=== PATIENT | female | born 1940 | race Caucasian/White ===

== ENCOUNTER 2020-04-14 08:39 | Outpatient (CLI) | payer MEDICARE, SELFPAY ==
[2020-04-14 08:53] LABS: Basophils Absolute Auto 0.1 K/mm3 (0.0-0.1); Basophils Percent Auto 1.2 % (0.2-1.2); Eosinophils Absolute Auto 0.3 K/mm3 (0-0.3); Eosinophils Percent Auto 5.4 % (0-4.4); Hematocrit 41.8 % (37.0-47.0); Hemoglobin 13.7 g/dL (12.0-15.0); Immature Granulocyte Absolute 0.01 K/mm3 (0.00-0.031); Immature Granulocyte Percent A 0.2 % (0-0.5); Lymphocytes Percent Auto 23.5 % (18.3-44.2); Mean Corpuscular HGB Conc 32.8 g/dl (32-36); Mean Corpuscular Hemoglobin 32.1 pg (26-34); Mean Corpuscular Volume 97.9 fl (80-100); Mean Platelet Volume 10.1 fl (7.4-10.4); Monocytes Absolute Auto 0.6 K/mm3 (0.1-0.6); Monocytes Percent Auto 10.8 % (2.6-8.5); Neutrophils Absolute Auto 3.5 K/mm3 (1.3-6.7); Neutrophils Percent Auto 58.9 % (45.5-73.1); Platelet Count Result 236 k/mm3 (150-375); Red Blood Count 4.27 M/mm3 (4.2-5.4); Red Cell Distribution Width 13.1 % (11.5-14.5)
[2020-04-14 12:44] LABS: Alanine Aminotransferase 19 U/L (4-35); Albumin Level 4.3 g/dL (3.5-5.1); Alkaline Phosphatase 122 U/L (38-126); Anion Gap 7 mmol/L (8-16); Aspartate Amino Transferase 31 U/L (14-36); Bilirubin,Total 0.7 mg/dL (0.2-1.3); Blood Urea Nitrogen 18 mg/dL (7-17); Calcium 9.4 mg/dL (8.4-10.2); Carbon Dioxide 29 mmol/L (22-30); Chloride 101 mmol/L (98-107); Estimated Glomerular Filt Rate > 60; Glucose 100 mg/dL (65-105); Potassium 4.4 mmol/L (3.4-5.0); Sodium 137 mmol/L (137-145)
[2020-04-14 12:59] LABS: Vitamin D 25 Hydroxy 52.2 ng/mL
== END 2020-04-14 08:40 | disposition home or self-care (01) ==
PROVIDERS: PCP Internal Medicine; Visit Provider Internal Medicine
DX: E55.9 Vitamin D deficiency, unspecified (principal); F31.9 Bipolar disorder, unspecified; M81.0 Age-related osteoporosis without current pathological fracture
CPT/HCPCS: 36415; 80053; 82306; 84443; 85025

== ENCOUNTER 2020-05-02 08:27 | Outpatient (CLI) | payer MEDICARE, SELFPAY ==
[2020-05-02 12:15] LABS: Cholesterol 240 mg/dL (0-200); HDL Direct 79 mg/dL; Triglycerides 85 mg/dL (<150)
[2020-05-02 12:16] LABS: LDL Cholesterol Direct 135 mg/dL
== END 2020-05-02 08:28 | disposition home or self-care (01) ==
PROVIDERS: PCP Internal Medicine; Visit Provider Internal Medicine
DX: F31.9 Bipolar disorder, unspecified (principal); M81.0 Age-related osteoporosis without current pathological fracture; E55.9 Vitamin D deficiency, unspecified; N95.2 Postmenopausal atrophic vaginitis; Z79.899 Other long term (current) drug therapy
CPT/HCPCS: 36415; 80061

== ENCOUNTER 2020-12-26 14:03 | Outpatient (CLI) | payer MEDICARE, SELFPAY ==
--- NOTE | ~2020-12-26 | XR_ITS ---
XR shoulder LT min 2V DATE: 12/26/2020 14:25 INDICATION: Mass on top of left shoulder for several months. No injury. TECHNIQUE: 4 views COMPARISON: None FINDINGS: There is osteoarthritic joint space narrowing and spurring at the left glenohumeral joint. There is mild degenerative spurring at the left acromioclavicular joint. No fracture or dislocation, periosteal reaction or bone destruction. Prominent degenerative disc disease and apophyseal joint and uncovertebral joint spurring of the incl uded mid and lower cervical spine. Degenerative spurring of the thoracic spine. IMPRESSION: Extensive degenerative changes of the cervical and thoracic spine Osteoarthritis of the glenohumeral joint Degenerative spurring of the acromioclavicular joint Reviewed, dictated and finalized at location B.
== END 2020-12-26 14:04 | disposition home or self-care (01) ==
LOC: ANHIMG 14:08
PROVIDERS: PCP Internal Medicine; Visit Provider Internal Medicine
DX: M50.30 Other cervical disc degeneration, unspecified cervical region (principal); M51.34 Other intervertebral disc degeneration, thoracic region; M19.012 Primary osteoarthritis, left shoulder
CPT/HCPCS: 73030

== ENCOUNTER 2021-04-13 07:42 | Outpatient (CLI) | payer MEDICARE, SELFPAY ==
[2021-04-13 08:31] LABS: Basophils Absolute Auto 0.1 K/mm3 (0.0-0.1); Basophils Percent Auto 1.2 % (0.2-1.2); Eosinophils Absolute Auto 0.3 K/mm3 (0-0.3); Eosinophils Percent Auto 5.7 % (0-4.4); Hematocrit 40.2 % (37.0-47.0); Hemoglobin 13.2 g/dL (12.0-15.0); Immature Granulocyte Absolute 0.01 K/mm3 (0.00-0.031); Immature Granulocyte Percent A 0.2 % (0-0.5); Lymphocytes Absolute Auto 1.53 K/mm3 (0.9-3.2); Lymphocytes Percent Auto 26.5 % (18.3-44.2); Mean Corpuscular HGB Conc 32.8 g/dl (32-36); Mean Corpuscular Hemoglobin 31.9 pg (26-34); Mean Corpuscular Volume 97.1 fl (80-100); Mean Platelet Volume 10.7 fl (7.4-10.4); Monocytes Absolute Auto 0.6 K/mm3 (0.1-0.6); Monocytes Percent Auto 10.1 % (2.6-8.5); Neutrophils Absolute Auto 3.3 K/mm3 (1.3-6.7); Neutrophils Percent Auto 56.3 % (45.5-73.1); Platelet Count Result 241 k/mm3 (150-375); Red Blood Count 4.14 M/mm3 (4.2-5.4); Red Cell Distribution Width 12.8 % (11.5-14.5); White Blood Count 5.8 K/mm3 (4.5-10.0)
[2021-04-13 08:45] LABS: Alanine Aminotransferase 18 U/L (4-35); Albumin Level 4.1 g/dL (3.5-5.1); Alkaline Phosphatase 114 U/L (38-126); Anion Gap 5 mmol/L (8-16); Aspartate Amino Transferase 29 U/L (14-36); Bilirubin,Total 0.8 mg/dL (0.2-1.3); Blood Urea Nitrogen 18 mg/dL (7-17); Calcium 9.1 mg/dL (8.4-10.2); Carbon Dioxide 31 mmol/L (22-30); Chloride 102 mmol/L (98-107); Cholesterol 221 mg/dL (0-200); Estimated Glomerular Filt Rate > 60; Glucose 94 mg/dL (65-110); HDL Direct 67 mg/dL; Potassium 4.2 mmol/L (3.4-5.0); Sodium 138 mmol/L (137-145); Triglycerides 54 mg/dL (<150)
[2021-04-13 08:46] LABS: Add Urine Microscopic? YES; Appearance Urine Clear (Clear); Bacteria Urine Trace /hpf; Bilirubin Urine Negative (Negative); Blood Urine Negative (Negative); Color Urine Yellow (Yellow); Glucose Urine UA Negative (Negative); Ketones Urine Negative (Negative); Leukocyte Esterase Ur Trace LEU/UL (NEGATIVE); Mucus Urine Rare /lpf; Nitrate Urine Negative (Negative); Protein Urine Negative (Negative); Specific Grav Ur 1.023 (1.001-1.035); Squamous Epithelial Cell Urine Rare /hpf (Few); Urobilinogen Urine Negative mg/dL (<2.0); WBC Urine 0-3 /hpf (0-3)
[2021-04-13 08:56] LABS: LDL Cholesterol Direct 114 mg/dL
[2021-04-13 09:08] LABS: Vitamin D 25 Hydroxy 54.1 ng/mL
== END 2021-04-13 07:43 | disposition home or self-care (01) ==
PROVIDERS: PCP Internal Medicine; Visit Provider Internal Medicine
DX: E55.9 Vitamin D deficiency, unspecified (principal); F31.9 Bipolar disorder, unspecified; N39.41 Urge incontinence; E78.2 Mixed hyperlipidemia
CPT/HCPCS: 36415; 80053; 80061; 81001; 82306; 84443; 85025

== ENCOUNTER 2021-06-06 01:32 | Day surgery (SDC) | payer MEDICARE, SELFPAY ==
[2021-05-25 13:20] VITALS: BMI 25.4
[2021-06-06 09:01] VITALS: BP 149/91; PULSE 86; RESP 17; TEMP 36.2; O2SAT 96; BMI 25.7
[2021-06-06] MEDS: LACTATED RINGERS 1,000 ML 150 ML IV CONT (09:13)
--- NOTE | 2021-06-06 09:18 | P.PNAN_ITS ---
Anes - Initial Pre Proc Eval Procedure: Operation Date: 06/06/21 10:15 Proposed Procedures p Screening Colonoscopy - Cody Pandey MD Date/Time: 06/06/21 09:18 Surgeon: Cody Pandey MD Pre Op Diagnosis: family hx of colon ca Patient Data Age: 81 Gender: F Height: 1.55 m Weight: 61.7 kg Last Vital Signs Temp 36.2 C L 06/06/21 09:01 Pulse 86 06/06/21 09:01 Resp 17 06/06/21 09:01 BP 149/91 H 06/06/21 09:01 Pulse Ox 96 06/06/21 09:01 Allergies Allergy/AdvReac Type Severity Reaction Status Date / Time codeine AdvReac Fainting Verified 06/06/21 09:01 Home Medications Medication Instructions Recorded Confirmed Type cholecalciferol (vitamin D3) 25 25 mcg PO DAILY 11/21/20 06/06/21 History mcg (1,000 unit) capsule red yeast rice 600 mg tablet 600 mg PO BID 11/21/20 06/06/21 History fluoxetine 10 mg capsule 10 mg PO DAILY #90 cap 12/08/20 06/06/21 Rx ascorbic acid (vitamin C) 1,000 mg 1 g PO DAILY 04/18/21 06/06/21 History tablet calcium carbonate 600 mg calcium 600 mg PO DAILY 04/18/21 06/06/21 History (1,500 mg) tablet coenzyme Q10 200 mg capsule 200 mg PO BID cap 04/18/21 06/06/21 History vitamin E (dl, acetate) 180 mg 180 mg PO DAILY 04/18/21 06/06/21 History (400 unit) capsule Patient hx anesthesia problems: none Family hx anesthesia problems: none Results Review: All pre-operative results and documents have been reviewed as part of the pre-operative evaluation. [facility] Past Medical History Medical History Bipolar 1 disorder History of chicken pox Surgical History Surgical History H/O hand surgery History of ankle surgery History of appendectomy No history of previous surgery Family History Family History Sibling Asthma Mother Depression Heart disease Grandparent Alcoholism Social History Social History Smoking status: Never smoker Second hand tobacco smoke exposure: No Alcohol intake: current Drinks per week: 7 Substance use: current Substance use type: marijuana Other substance usage details: Once every other day Living arrangements: alone Spiritual care concerns: No Anes - Eval Final PreProcedure Day of Procedure 06/06/21 09:18 Patient weight: normal Heart: regular rate and rhythm Lungs: clear to auscultation Airway: Mallampati scale class II Neurological: alert and oriented Last oral intake: >/= 8 hours ASA classification: II Emergent: no Anesthetic plan: proceed Anesthesia type and monitoring: general GIVS and standard monitoring Results Review: All pre-operative results and documents have been reviewed as part of the pre-operative evaluation. Informed Consent: The patient's anesthetic plan and its attendant risks and benefits were discussed with the patient/family/POA. Questions were solicited and answers provided to the satisfaction of the patient/family/POA.
--- NOTE | 2021-06-06 10:13 | PM.HPGS ---
History of Present Illness History of Present Illness Consent: Risks, benefits, and alternatives have been discussed and questions answered. Patient agrees to proceed with procedure. Chief complaint: family hx of colon ca Narrative: Rubi Barnett is a 81 year old female with last colonoscopy about 10 years ago. Review of Systems Constitutional: Constitutional: Denies headache(s) and Denies weakness Eyes: Eyes: Denies blurry vision ENT: Reports Normal hearing present, Denies headache(s) and Denies neck pain Cardiovascular: Cardiovascular: Denies chest pain and Denies dyspnea Respiratory: Respiratory: Denies dyspnea Gastrointestinal: Gastrointestinal: Reports no additional gastrointestinal complaints Genitourinary: Genitourinary: Denies dysuria Musculoskeletal: Musculoskeletal: Denies neck pain Integumentary/Breasts: Skin/Breast: Denies dry skin Neurologic: Reports Normal hearing present, Denies headache(s) and Denies weakness Psychiatric: Psychiatric: Denies anxiety Endocrine: Endocrine: Denies change in body appearance Hematologic/Lymphatic: Hematologic/Lymphatic: Denies easy bleeding Allergic/Immunologic: Allergic/Immunologic: Denies urticaria PMFSH Past Medical History Medical History (Updated 06/06/21 @ 10:13 by Cody Pandey MD) Bipolar 1 disorder Colon cancer screening History of chicken pox Surgical History Surgical History H/O hand surgery History of ankle surgery History of appendectomy No history of previous surgery Family History Family History Sibling Asthma Mother Depression Heart disease Grandparent Alcoholism Social History Social History Smoking status: Never smoker Second hand tobacco smoke exposure: No Alcohol intake: current Drinks per week: 7 Substance use: current Substance use type: marijuana Other substance usage details: Once every other day Living arrangements: alone Spiritual care concerns: No Meds Home Medications and Allergies Home Medications Medication Instructions Recorded Confirmed Type cholecalciferol (vitamin D3) 25 25 mcg PO DAILY 11/21/20 06/06/21 History mcg (1,000 unit) capsule red yeast rice 600 mg tablet 600 mg PO BID 11/21/20 06/06/21 History fluoxetine 10 mg capsule 10 mg PO DAILY #90 cap 12/08/20 06/06/21 Rx ascorbic acid (vitamin C) 1,000 mg 1 g PO DAILY 04/18/21 06/06/21 History tablet calcium carbonate 600 mg calcium 600 mg PO DAILY 04/18/21 06/06/21 History (1,500 mg) tablet coenzyme Q10 200 mg capsule 200 mg PO BID cap 04/18/21 06/06/21 History vitamin E (dl, acetate) 180 mg 180 mg PO DAILY 04/18/21 06/06/21 History (400 unit) capsule Allergies Allergy/AdvReac Type Severity Reaction Status Date / Time codeine AdvReac Fainting Verified 06/06/21 09:01 Vital Signs Vital Signs - 24 hr 06/06/21 09:01 Temperature 97.1 F L Pulse Rate 86 Respiratory Rate 17 Blood Pressure 149/91 H Pulse Oximetry 96 Exam Const: General: comfortable and no acute distress HENMT: General nose exam: Normal nares present Eyes: General: appearance normal, both eyes and all related structures Neck: Neck: no JVD Resp: Auscultation: clear to auscultation bilaterally Cardio: Rate: regular rate Rhythm: regular rhythm GI: Inspection: non-distended GI Palp: Yes Soft to palpation Skin: General skin exam: normal color Neuro: General: gait normal Speech: normal speech Extrem: General: normal to inspection Psych: Mental Status: mental status grossly normal Assessment and Plan Assessment and plan (1) Colon cancer screening: Code(s): Z12.11 - Encounter for screening for malignant neoplasm of colon Status: Acute Assessment and Plan: colonoscopy
[2021-06-06 10:37] VITALS: BP 90/54; PULSE 62; RESP 24; O2SAT 98
[2021-06-06 10:47] VITALS: BP 130/65; PULSE 74; RESP 18; O2SAT 98
[2021-06-06 10:57] VITALS: BP 151/88; PULSE 70; RESP 19; O2SAT 100
== END 2021-06-06 11:16 | disposition home or self-care (01) ==
PROVIDERS: PCP Internal Medicine; Visit Provider Internal Medicine Gastroenterology
PROC: 0DJD8ZZ Inspection of Lower Intestinal Tract, Via Natural or Artificial Opening Endoscopic (ICD-10-PCS; CPT 45378; principal; 2021-06-06 10:15)
DX: Z12.11 Encounter for screening for malignant neoplasm of colon (principal); K64.8 Other hemorrhoids; F31.9 Bipolar disorder, unspecified; F12.90 Cannabis use, unspecified, uncomplicated
CPT/HCPCS: G0121; J2704; J7120

== ENCOUNTER 2022-07-17 13:39 | Outpatient (CLI) | payer MEDICARE, SELFPAY ==
--- NOTE | ~2022-07-17 | DEXA_ITS ---
Bone Density Report Name: PRATIMA KNUTSON Age: 82 Sex: Female Ethnicity: White Date of : 1940 Indication: osteopenia; height loss; prior fracture; postmenopausal Referring Provider: ESTEFANIA MARTINEZ Study: Bone densitometry was performed. Exam Date: July 17, 2022 Accession number: [id number] Bone Density: Region BMD T-score Z-score Classification AP Spine(L1, L2, L3) 0.792 -2.1 0.6 Osteopenia Femoral Neck (Left) 0.857 0.1 2.4 Normal Total Hip (Left) 0.885 -0.5 1.6 Normal Femoral Neck (Right) 0.734 -1.0 1.3 Normal Total Hip (Right) 0.838 -0.9 1.2 Normal Total Hip Mean 0.862 -0.7 1.4 Normal World Health Organization criteria for BMD impression classify patients as: Normal (T-score at or above -1.0), Osteopenia (T-score between -1.0 and -2.5), or Osteoporosis (T-score at or below -2.5). 10-year Fracture Risk(1): Major Osteoporotic Fracture 16% Hip Fracture 3.0% Reported Risk Factors: [place] (), Neck BMD=0.734, BMI=23.2, previous fracture (1) FRAX(R) Version 3.08. Fracture probability calculated for an untreated patient. Fracture probability may be lower if the patient has received treatment. Previous Exams: Region Exam Age BMD T-score BMD Change BMD Change Date g/cm2 vs Baseline vs Previous AP Spine (L1-L3) 07/17/2022 82 0.792 -2.1 0.001 (0.2%) 0.001 (0.2%) 05/09/2019 79 0.790 -2.1 Total Hip(Left) 07/17/2022 82 0.885 -0.5 -0.043 (-4.7%) -0.043 (-4.7%) 05/09/2019 79 0.929 -0.1 Total Hip(Right) 07/17/2022 82 0.838 -0.9 -0.015 (-1.7%) -0.015 (-1.7%) 05/09/2019 79 0.852 -0.7 *Denotes significance at 95% confidence level, LSC for AP Spine = 0.022 g/cm2, LSC for Total Hip = 0.027 g/cm2 Clinical Information Provided by Patient: Has had a low trauma fracture Has used the following medications: Vitamin D, Calcium Patient maximum height was 64 Menopause Age: 54 Onset of menses at age 15 Number of children 1 Impression: The patient has low bone mass, based on the Total Spine T-score. The patient has an estimated ten-year risk of hip fracture of 3% and an estimated ten-year risk of major fracture of 16%, based on the WHO FRAX algorithm. The patient has risk factors, including: previous fracture. The BMD for the Total Hip(Left) decreased, changing by -4.7% since the last DXA exam. Discussion: BONE DENSITY IS LOW AT ONE OR MORE SKELETAL SITES. THE PATIENT'S BMD AND CLINICAL RISK FACTO
== END 2022-07-17 13:40 | disposition home or self-care (01) ==
PROVIDERS: PCP Internal Medicine; Visit Provider Internal Medicine
DX: M81.0 Age-related osteoporosis without current pathological fracture (principal); M85.9 Disorder of bone density and structure, unspecified
CPT/HCPCS: 77080

== ENCOUNTER 2022-11-16 08:11 | Outpatient (CLI) | payer MEDICARE, SELFPAY ==
[2022-11-16 09:18] LABS: Basophils Absolute Auto 0.1 K/mm3 (0.0-0.1); Basophils Percent Auto 1.4 % (0.2-1.2); Eosinophils Absolute Auto 0.3 K/mm3 (0-0.3); Eosinophils Percent Auto 5.3 % (0-4.4); Hemoglobin 12.8 g/dL (12.0-15.0); Immature Granulocyte Absolute 0.01 K/mm3 (0.00-0.031); Immature Granulocyte Percent A 0.2 % (0-0.5); Lymphocytes Absolute Auto 1.58 K/mm3 (0.9-3.2); Lymphocytes Percent Auto 24.5 % (18.3-44.2); Mean Corpuscular HGB Conc 32.8 g/dl (32-36); Mean Corpuscular Hemoglobin 32.2 pg (26-34); Monocytes Absolute Auto 0.6 K/mm3 (0.1-0.6); Monocytes Percent Auto 9.8 % (2.6-8.5); Neutrophils Absolute Auto 3.8 K/mm3 (1.3-6.7); Neutrophils Percent Auto 58.8 % (45.5-73.1); Platelet Count Result 235 k/mm3 (150-375); Red Blood Count 3.98 M/mm3 (4.2-5.4); Red Cell Distribution Width 12.4 % (11.5-14.5); White Blood Count 6.5 K/mm3 (4.5-10.0)
[2022-11-16 09:33] LABS: Alanine Aminotransferase 24 U/L (6-35); Albumin Level 4.3 g/dL (3.5-5.1); Alkaline Phosphatase 121 U/L (38-126); Anion Gap 5 mmol/L (8-16); Aspartate Amino Transferase 33 U/L (14-36); Bilirubin,Total 0.7 mg/dL (0.2-1.3); Blood Urea Nitrogen 14 mg/dL (7-17); Carbon Dioxide 31 mmol/L (22-30); Chloride 102 mmol/L (98-107); Estimated Glomerular Filt Rate > 60; Glucose 94 mg/dL (65-110); Potassium 4.5 mmol/L (3.4-5.0); Sodium 138 mmol/L (137-145)
[2022-11-16 09:50] LABS: Vitamin D 25 Hydroxy 44.9 ng/mL
== END 2022-11-16 08:12 | disposition home or self-care (01) ==
PROVIDERS: PCP Family Medicine; Visit Provider Nurse Practitioner Family
DX: F31.9 Bipolar disorder, unspecified (principal); E55.9 Vitamin D deficiency, unspecified
CPT/HCPCS: 36415; 80053; 82306; 85025

== ENCOUNTER 2023-05-02 09:05 | Outpatient (CLI) | payer MEDICARE, SELFPAY ==
[2023-05-02 09:21] LABS: Hematocrit 42.2 % (37.0-47.0); Hemoglobin 13.5 g/dL (12.0-15.0); Mean Corpuscular Hemoglobin 32.1 pg (26-34); Mean Corpuscular Volume 100.5 fl (80-100); Mean Platelet Volume 10.1 fl (7.4-10.4); Platelet Count Result 255 k/mm3 (150-375); Red Cell Distribution Width 12.9 % (11.5-14.5); White Blood Count 5.7 K/mm3 (4.5-10.0)
[2023-05-02 09:35] LABS: Alanine Aminotransferase 23 U/L (6-35); Albumin Level 4.5 g/dL (3.5-5.1); Alkaline Phosphatase 113 U/L (38-126); Anion Gap 10 mmol/L (8-16); Aspartate Amino Transferase 33 U/L (14-36); Bilirubin,Total 0.7 mg/dL (0.2-1.3); Blood Urea Nitrogen 16 mg/dL (7-17); Calcium 9.7 mg/dL (8.4-10.2); Carbon Dioxide 27 mmol/L (22-30); Chloride 105 mmol/L (98-107); Cholesterol 259 mg/dL (0-200); Estimated Glomerular Filt Rate > 60; Glucose 102 mg/dL (65-110); HDL Direct 88 mg/dL; Potassium 4.2 mmol/L (3.4-5.0); Sodium 142 mmol/L (137-145); Triglycerides 74 mg/dL (<150)
[2023-05-02 09:47] LABS: LDL Cholesterol Direct 116 mg/dL
[2023-05-02 10:04] LABS: Vitamin D 25 Hydroxy 49.7 ng/mL
== END 2023-05-02 09:06 | disposition home or self-care (01) ==
PROVIDERS: PCP Family Medicine; Visit Provider Family Medicine
DX: E78.2 Mixed hyperlipidemia (principal); F31.9 Bipolar disorder, unspecified; E55.9 Vitamin D deficiency, unspecified
CPT/HCPCS: 36415; 80053; 80061; 82306; 85027

== ENCOUNTER 2023-07-16 17:31 | Emergency (ER) | payer MEDICARE, SELFPAY ==
--- NOTE | ~2023-07-16 | CT_ITS ---
EXAMINATION: CT cervical spine wo con DATE: 07/16/2023 19:05 INDICATION: head injury TECHNIQUE: Computed tomography (CT) of the cervical spine was performed without intravenous contrast. Automated exposure control and iterative reconstruction technique were employed. The dose-length pro duct was 175.06 mGy-cm. COMPARISON: None. FINDINGS: Vertebral Body Alignment: Intact. Mild listheses at C3-4, C4-5, and C5-6 Craniocervical and atlantoaxial alignment: Moderate degenerative change. Alignment intact. Osseous structures/fracture: No evidence of a lytic or blastic process in the visualized spine. No e vidence of acute fracture. Cervical soft tissues: The paraspinal soft tissues planes are maintained. Biapical pleural scarring a nd septal thickening. Degenerative changes: Degenerative changes, without severe neural foraminal or central canal narrowin g. IMPRESSION: No acute fracture or traumatic malalignment in the cervical spine. Multilevel grade 1 anterolistheses, presumably on a degenerative basis. Reviewed, dictated and finalized at location K. 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
--- NOTE | ~2023-07-16 | CT_ITS ---
EXAMINATION: CT brain wo con DATE: 07/16/2023 19:05 INDICATION: head injury . TECHNIQUE: Computed tomography (CT) of the head was performed without intravenous contrast. The mA wa s adjusted according to patient size. Iterative reconstruction technique was employed. The dose-lengt h product was 605.33 mGy-cm. COMPARISON: None. FINDINGS: No acute intracranial hemorrhage or extra-axial fluid collection. No hydrocephalus, mass, or herniation. No acute ischemic infarct. Unremarkable dural venous sinus attenuation. No acute osseous abnormality. Minimal left mastoid fluid, the remaining aerated spaces are clear. Moderate atrophy and chronic white matter change. Atherosclerotic intracranial calcification. Right l ens replacement. IMPRESSION: No acute intracranial process. Reviewed, dictated and finalized at location K. AL MANAGER
--- NOTE | ~2023-07-16 | XR_ITS ---
EXAMINATION: XR chest 2V Exam Date/Time: 07/16/2023 19:00 FAILURE ANALYSIS TECHNICIAN HISTORY: syncope Comparison: None. RESULT: Lines, tubes, and devices: None. Lungs and pleura: Senescent/emphysematous change, otherwise clear. Cardiomediastinal silhouette: Stable. Other: No acute osseous or upper abdominal finding. IMPRESSION: No acute cardiopulmonary process. Reviewed, dictated and finalized at location K. URE ANALYSIS TECHNICIAN
[2023-07-16 17:38] VITALS: BP 134/80; PULSE 73; RESP 15; TEMP 36.2; O2SAT 96
--- NOTE | 2023-07-16 17:38 | ECG_ITS ---
Measurements Intervals [place] Rate: 72 P: 54 AK: 166 QRS: 11 QRSD: 86 T: 29 QT: 373 QTc: 410 Interpretive Statements SINUS RHYTHM POSSIBLE LEFT ATRIAL ENLARGEMENT BASELINE ARTIFACT- I, III, AVR, AVL BORDERLINE ECG NO PREVIOUS ECG AVAILABLE FOR COMPARISON Electronically Signed On 07-16-2023 20:16:03 AGENCY RECRUITER by Santiago Clark D.O.
--- NOTE | 2023-07-16 17:56 | ED.SYNCOPE ---
HPI - Syncope General Chief Complaint: Syncope Stated Complaint: SYNCOPY Time Seen by Provider: 07/16/23 17:54 Source: patient Mode of arrival: EMS Limitations: no limitations History of Present Illness HPI narrative: This is a 83 year old female that presents to the ER for syncopal episode today. Reports she was at the grocery store and suddenly passed out. Reports feeling not right prior to, without focal symptoms. She had an additional syncopal episode after. Presents via EMS for evaluation. Does report history of syncopal episodes in the past. Denies vision changes, chest pain, shortness of breath, palpitations, vomiting, numbness or weakness. Related Data Home Medications Medication Instructions Recorded Confirmed ascorbic acid (vitamin C) 500 mg 1,000 mg PO DAILY 04/30/23 capsule calcium carbonate 600 mg-vitamin 1 tablet PO BID 04/30/23 D3 10 mcg (400 unit) tablet (Calcium with Vitamin D) Allergies Allergy/AdvReac Type Severity Reaction Status Date / Time ragweed pollen Allergy Mild Unknown Verified 04/30/23 10:28 codeine AdvReac Fainting Verified 04/30/23 10:28 Review of Systems Review of Systems: CONSTITUTIONAL: Denies fever EYES: Denies visual changes CARDIOVASCULAR: Denies chest pain, palpitations, or edema. RESPIRATORY: Denies dyspnea. GASTROINTESTINAL: Denies nausea, vomiting MUSCULOSKELETAL: Denies back pain, joint pain, or myalgia. NEUROLOGIC: Denies numbness, or weakness. All systems reviewed & are unremarkable except as noted in HPI and below PMFSH Past Medical History Medical History Bipolar 1 disorder Colon cancer screening History of chicken pox Surgical History Surgical History H/O hand surgery History of ankle surgery History of appendectomy History of colonoscopy No history of previous surgery Family History Family History Sibling Asthma Mother Depression Heart disease Grandparent Alcoholism Social History Social History Smoking status: Current some day smoker Second hand tobacco smoke exposure: No Alcohol intake: current Drinks per week: 7 Alcohol use details: a glass of wine at lunch everyday per patient Substance use: current Substance use type: marijuana Other substance usage details: Once every other day Lack of Transportation: No Lack of Food: Never True Current Housing: I Have Housing Concerned About Future Housing: No Difficulty Paying Gas/Electric Bills: No Difficulty Paying for Meds: No Currently Unemployed: No Education: Associate Degree Difficulty w/ Childcare or Family Care: No Living arrangements: alone Spiritual care concerns: No Exam Narrative: GENERAL: Elderly, well-nourished, and in no acute distress. HEAD: Normocephalic, atraumatic. EYES: PERRLA and EOMI. ENT: Nares clear, no rhinorrhea or epistaxis. Mucous membranes moist. Oropharynx without tonsillar hypertrophy exudate or other lesions. Bilateral TMs pearly kwong non-bulging NECK: Supple. No adenopathy or masses. No JVD CHEST: Clear to auscultation. No respiratory distress. No wheezes rales or rhonchi HEART: Regular rate and rhythm. No murmur heard. Normal peripheral pulses. BACK: No midline spinal tenderness EXTREMITIES: Normal range of motion. No edema. Strength equal in bilateral upper and lower extremities (5/5). Normal DP pulses SKIN: Warm, dry, no rash. NEURO: No focal deficits. Alert and oriented x3. CN II-XII grossly intact PSYCH: Normal mood and affect Course Course Emergency Course: Patient updated on her workup. Reports feeling much better, ready for discharge Vital Signs Vital signs: Vital Signs Temperature 97.1 F L 07/16/23 17:38 Pulse Rate 73 07/16/23 17:38 Respiratory Rate 15 07/16/23 17:38
[2023-07-16 18:21] LABS: Basophils Absolute Auto 0.1 K/mm3 (0.0-0.1); Basophils Percent Auto 0.7 % (0.2-1.2); Eosinophils Absolute Auto 0.2 K/mm3 (0-0.3); Eosinophils Percent Auto 1.4 % (0-4.4); Hematocrit 39.1 % (37.0-47.0); Hemoglobin 12.5 g/dL (12.0-15.0); Immature Granulocyte Absolute 0.04 K/mm3 (0.00-0.031); Immature Granulocyte Percent A 0.4 % (0-0.5); Lymphocytes Absolute Auto 1.31 K/mm3 (0.9-3.2); Lymphocytes Percent Auto 12.3 % (18.3-44.2); Mean Corpuscular Hemoglobin 31.6 pg (26-34); Mean Corpuscular Volume 98.7 fl (80-100); Mean Platelet Volume 10.2 fl (7.4-10.4); Monocytes Absolute Auto 0.9 K/mm3 (0.1-0.6); Monocytes Percent Auto 8.3 % (2.6-8.5); Neutrophils Absolute Auto 8.2 K/mm3 (1.3-6.7); Neutrophils Percent Auto 76.9 % (45.5-73.1); Platelet Count Result 225 k/mm3 (150-375); Red Blood Count 3.96 M/mm3 (4.2-5.4); Red Cell Distribution Width 12.6 % (11.5-14.5); White Blood Count 10.7 K/mm3 (4.5-10.0)
[2023-07-16] MEDS: SODIUM CHLORIDE 0.9% IV 500 ML 999 ML IV CONT (18:27)
[2023-07-16 18:33] LABS: Alanine Aminotransferase 19 U/L (6-35); Albumin Level 3.9 g/dL (3.5-5.1); Alkaline Phosphatase 103 U/L (38-126); Anion Gap 5 mmol/L (8-16); Aspartate Amino Transferase 31 U/L (14-36); Bilirubin,Total 0.5 mg/dL (0.2-1.3); Blood Urea Nitrogen 21 mg/dL (7-17); Calcium 9.5 mg/dL (8.4-10.2); Carbon Dioxide 30 mmol/L (22-30); Chloride 103 mmol/L (98-107); Estimated CRCL calculation 38 ml/min; Estimated Glomerular Filt Rate > 60; Glucose 122 mg/dL (65-110); Potassium 3.8 mmol/L (3.4-5.0); Sodium 138 mmol/L (137-145)
[2023-07-16 18:37] LABS: D Dimer 0.74 ug/mL (<0.48)
[2023-07-16 18:45] LABS: Troponin I < 0.012 ng/mL (0.000-0.034)
[2023-07-16 19:27] VITALS: BP 137/84; PULSE 83; PULSE 89; RESP 15; TEMP 36.6; O2SAT 97
[2023-07-16 19:32] VITALS: BP 145/76; PULSE 76
[2023-07-16 19:33] VITALS: BP 162/76; PULSE 78
[2023-07-16 19:35] VITALS: BP 155/80; PULSE 82
[2023-07-16 20:30] LABS: Appearance Urine Clear (Clear); Bacteria Urine None Seen /hpf; Bilirubin Urine Negative (Negative); Blood Urine Negative (Negative); Color Urine Dark Yellow (Yellow); Glucose Urine UA Negative (Negative); Ketones Urine Negative (Negative); Leukocyte Esterase Ur 3+ LEU/UL (Negative); Nitrate Urine Negative (Negative); Non Pathogenic Casts 0-2; Protein Urine Negative (Negative); RBC Urine 0-2 /hpf (0-2); Specific Grav Ur 1.019 (1.001-1.035); Squamous Epithelial Cell Urine None seen /hpf (Few); WBC Urine 21-50 /hpf
[2023-07-16 20:34] LABS: Add Urine Microscopic? YES
[2023-07-16] MEDS: CEFDINIR 300 MG CAPSULE PO (21:26)
[2023-07-16 21:27] VITALS: BP 146/79; PULSE 78; RESP 16; TEMP 36.6; O2SAT 100
== END 2023-07-16 21:27 | disposition home or self-care (01) ==
PROVIDERS: Emergency Medicine; Emergency Provider Physician Assistant; PCP Family Medicine
DX: N39.0 Urinary tract infection, site not specified (principal); R55 Syncope and collapse; F17.210 Nicotine dependence, cigarettes, uncomplicated; F31.9 Bipolar disorder, unspecified
CPT/HCPCS: 36415; 70450; 71046; 72125; 80053; 81001; 84484; 85025; 85380; 87086; 93005; 96360; 99284; A9270; J7040

== ENCOUNTER 2023-07-25 10:15 | Outpatient (CLI) | payer MEDICARE, SELFPAY ==
[2023-07-25 10:41] LABS: Appearance Urine Clear (Clear); Bilirubin Urine Negative (Negative); Blood Urine Negative (Negative); Color Urine Yellow (Yellow); Glucose Urine UA Negative (Negative); Ketones Urine Negative (Negative); Leukocyte Esterase Ur Negative LEU/UL (NEGATIVE); Nitrate Urine Negative (Negative); Protein Urine Negative (Negative); Specific Grav Ur 1.015 (1.001-1.035); Urobilinogen Urine 0.2 mg/dL (<2.0); pH Urine 7.5 (5.0-9.0)
[2023-07-25 10:59] LABS: Add Urine Microscopic? NO
== END 2023-07-25 10:16 | disposition home or self-care (01) ==
LOC: ANHLAB 10:17
PROVIDERS: PCP Family Medicine; Visit Provider Nurse Practitioner Family
DX: N39.0 Urinary tract infection, site not specified (principal)
CPT/HCPCS: 81003; 87077; 87086; 87186

== ENCOUNTER 2023-10-21 14:27 | Outpatient (CLI) | payer MEDICARE, SELFPAY ==
--- NOTE | ~2023-10-21 | XR_ITS ---
AP and lateral views of the left hip Clinical history: Pain Findings: No acute fracture or dislocation is seen. Osseous alignment is anatomic. There is severe le ft hip joint osteoarthritis, joint space narrowing, reactive sclerosis, and osteophyte formation.. So ft tissues are unremarkable. Impression: Severe left hip joint osteoarthritis. Reviewed, dictated and finalized at location . Impression: Severe left hip joint osteoarthritis.
== END 2023-10-21 14:28 | disposition home or self-care (01) ==
LOC: ANHIMG 14:30
PROVIDERS: PCP Family Medicine; Visit Provider Nurse Practitioner Family
DX: M16.12 Unilateral primary osteoarthritis, left hip (principal)
CPT/HCPCS: 73502

== ENCOUNTER 2023-12-26 11:00 | Outpatient (RCR) | payer MEDICARE, SELFPAY ==
--- NOTE | 2023-11-18 18:00 | PTOPEVAL1 ---
Assessment and note entered by Evangelina Webb, PT Evaluation Information Assessment Status Evaluation Diagnosis L hip pain Onset September 2023 Therapy Conditions pain, ROM impairments, weakness, gait impairments Subjective Information Pt reports starting to feel a little pain to L hip which persisted and got worse over time; climbing up/down stairs and lying on the L side. states she regularly performs yoga and but she has been on the cautious and modified positions recently since the pain started; has an appointment to ortho for injections tomorrow due to a planned trip on 11/21/2023. Reported Pain Level Pain Score 6: Self Report Assessment PT Clinical Summary Pt is an 83 yo female who presents to therapy with L hip pain with diagnosis of trochanteric bursitis, BLE weakness L > R influenced greatly by pain, significant balance and gait impairments which impact her ability to perform IADLs (walking the dog, travelling), limiting safe and independent community ambulation. Pt will benefit from continued Skilled PT services to improve functional mobility, address deficits and improve quality of life. Plan of Care Interventions Electrical Stimulation,Gait Training,Hot Pack/Cold Pack,Manual Therapy,Neuro Re-education,Patient/ Caregiver Educati,Therapeutic Activities, Therapeutic Exercise PT Services Indicated Yes Treatment Frequency and 2x/wk x 8 visits Duration These treatments will address the objective and functional deficits as defined above. The patient will be advanced safely and appropriately in order for the patient to progress towards his/her prior level of function. Additional exercises will be introduced and as well as a comprehensive home exercise program upon discharge, if needed, ?to ensure carryover of functional gains achieved in the clinic. This treatment plan has been reviewed and agreement upon by the patient.
--- NOTE | 2023-12-26 11:57 | PTOPDC ---
Assessment and note entered by Karis Sandy, PT Discharge Report Assessment Status Discharge Diagnosis L hip pain ICD-10 Condition Codes (PT) Pain in left hip M25.552,R26.9,Weakness R53.1 Onset September 2023 Subjective Information therapy is helping; sleeping is better, not as much pain in hip; have been doing yoga and that helps; use the cane when walk the dog for about 15 - 30 minutes, 2x day; does not have a follow up appointment with provider; grand daughter is helping her do laundry because of the stairs to basement; agree to d/c from therapy and do exercises. does have an appt with orthopedic dr about THR; Reported Pain Level Pain Score Self Report Additional Pain Score Comments pain range in the past week 2-4/10; lateral hip Assessment PT Clinical Summary Rubi has received 11 PT sessions. Compared to the initial evaluation: pain from 4-8/ 10 to 2-4/10; self assessment with LE functional scale from 61% to 46% limitation in activity level improved flexibility of hamstrings and strength of L LE; continues to have pain with hip ER motion and decreased hip IR and ER motions, compared to the R hip; continues to use the cane for distances; reported walking tolerance has increased; education completed for HEP. The goals were partially met. Discharge from PT services. She is to continue with her HEP. Plan of Care PT Services Indicated No
== END 2023-12-26 13:05 | disposition home or self-care (01) ==
LOC: ANHPT 11:00
PROVIDERS: PCP Family Medicine; Visit Provider Nurse Practitioner Family
DX: M16.12 Unilateral primary osteoarthritis, left hip (principal)
CPT/HCPCS: 97014; 97110; 97140; 97161; 97530; G0283

== ENCOUNTER 2024-04-07 10:00 | Outpatient (RCR) | payer MEDICARE, SELFPAY ==
--- NOTE | 2024-03-05 08:55 | PTOPEVAL1 ---
Assessment and note entered by Darinel Mcleod Evaluation Information Assessment Status Evaluation ICD-10 Condition Codes (PT) M25.511,Pain in left hip M25.552 Onset 03/05/23 Subjective Information Pt. reports that she has been experiencing left hip pain for the past year. She states that she is uncertain of when her right shoulder pain began . She recalls no specific incident that started her pain, just a gradual onset. She reports that her hip limits her more than her shoulder. She reports that her hip pain is worst after getting up from a seated position. She states that small tasks such as lifting her leg into bed are becoming very difficult with the left leg due to pain. She states that she is having trouble sleeping, as she cannot sleep on the left side due to pain. She reports that she has a dog to care for, but she is beginning to have difficulty with walking her dog due to left hip pain. She states that she can only walk for about 20 minutes before having to sit due to pain. She reports that she has recently started using a scooter in the grocery store, because she cannot stand long enough to complete her shopping. She reports that her shoulder pain has been minimal as of recently . She reports she is right hand dominant, and still able to complete most daily tasks without much complication. She states that she had x-ray of the shoulder and was told she is a candidate for shoulder replacement. She notes that she can still reach overhead and lifts light weighted objects with minimal pain. She reports that her goal is to improve her standing endurance, walking and decrease her hip pain. Reported Pain Level Pain Score 6: Self Report Assessment PT Clinical Summary Pt. is a 84 year old female who enters the clinic with a diagnosis of left hip pain and right shoulder pain, secondary to development of OA. She presents with minimal limitation at the right shoulder and expresses more concern regarding hip pain and function. She currently presents with moderate fall risk, impaired gait, impaired balance, l.e. weakness, decreased left hip mobility and pain with ADL's. Continued skilled PT is indicated in order to improve these areas to allow for improve safety and efficiency with IADL performance. Plan of Care Interventions Omari
--- NOTE | 2024-03-05 08:55 | OPREHPOC ---
Outpatient Therapy Plan of Care This is a Multidisciplinary Plan of Care that may contain components documented by all disciplines (PT, OT, and ST.) PT Problem 1 PT Problem #1 Knowledge Deficit PT Goal 1 Goal / Goal Update Pt. will be independent with a HEP addressing l.e. strength and mobility. Target Visit 2 PT Problem 2 PT Problem #2 Impaired Balance PT Goal 1 Goal / Goal Update Pt. will increase tinetti score to 25 or greater indicating low fall risk. Target Visit 10 PT Problem 3 PT Problem #3 Impaired Functional Mobil PT Goal 1 Goal / Goal Update Pt. will complete the 6 minute walk test with use of standard cane over a distance of 1100' in order to improve efficiency with completion of IADL's Pt. will demonstrate ability to safely lift small object from floor to waist to complete household duties. Target Visit 10 PT Problem 4 PT Problem #4 Impaired Strength PT Goal 1 Goal / Goal Update Pt. will improve left hip abduction strength to 4/ 5 in order to provide improved gait mechanics with less noted trendelenburg on the left Target Visit 10 PT Problem 5 PT Problem #5 Impaired Range of Motion PT Goal 1 Goal / Goal Update Improve passive hip mobility to 30 degrees abduction and 110 degrees flexion on the left. Target Visit 5
--- NOTE | 2024-03-09 13:27 | PCPTNOTE ---
Patient no-call, no show this date. Attempted to call the patient at the number on file, however there was no voicemail set up. Next appointment is scheduled for 03/12 at 10:00.
--- NOTE | 2024-04-07 10:52 | PTOPDC ---
Assessment and note entered by Karis Sandy, PT Discharge Report Assessment Status Discharge ICD-10 Condition Codes (PT) M25.511,Pain in left hip M25.552 Onset 03/05/23 Subjective Information since coming for therapy, the exercises are helping me get better; saw the dr about a hip replacement, and was told she needed a hip replacement; not sure when she is going to have the surgery, because having dental work done and it has to be completed before she can have surgery. does not have any help with her home tasks. R shoulder is sore but doing OK, can use it and move it. More soreness when putting weight on her cane with walking. Reported Pain Level Pain Score Self Report Additional Pain Score Comments L lateral hip and down leg to mid calf pain range in the past week 4-6/10 decrease pain with heating pad, resting, take extra strength tylenol reported walking tolerance, with cane and walking her dog about 20 minutes; at the grocery store, use the motorized cart; Assessment PT Clinical Summary Rubi has received 9 PT sessions for L hip pain. She did not show for one appointment. Her original PT order also has the diagnosis of R shoulder pain. Today, she reports shoulder soreness with walking and putting weight onto her R arm with using the cane. She was educated on walking with a wheeled walker and used it- reported less R shoulder pain. R shoulder active ROM is WNL. She did not want any therapy on her R shoulder at this time. Compared to the initial evaluation L hip: pain rating from 6/10 to 4-6/10; reported walking tolerance time of 20 minutes is the same; continues to use the cane for walking with 6 minute walking test distance from 910' to 1060 '; self assessment with LE functional scale from 28% to 34% limitation in activity level; Tinetti balance/gait score from 22 to 25/28; increase strength of L hip abduction; continues to have limited L hip flexion with pain increase; Education for HEP. The goals were partially m
== END 2024-04-07 16:52 | disposition home or self-care (01) ==
LOC: ANHPT 10:00
PROVIDERS: PCP Family Medicine; Visit Provider Family Medicine
DX: M70.62 Trochanteric bursitis, left hip (principal); M16.12 Unilateral primary osteoarthritis, left hip; M19.011 Primary osteoarthritis, right shoulder
CPT/HCPCS: 97110; 97116; 97161; 97530

== ENCOUNTER 2024-05-02 07:58 | Outpatient (CLI) | payer MEDICARE, SELFPAY ==
[2024-05-02 08:41] LABS: Hematocrit 37.9 % (37.0-47.0); Hemoglobin 12.4 g/dL (12.0-15.0); Mean Corpuscular HGB Conc 32.7 g/dl (32-36); Mean Corpuscular Hemoglobin 32.2 pg (26-34); Mean Corpuscular Volume 98.4 fl (80-100); Mean Platelet Volume 10.7 fl (7.4-10.4); Platelet Count Result 214 k/mm3 (150-375); Red Blood Count 3.85 M/mm3 (4.2-5.4); Red Cell Distribution Width 12.7 % (11.5-14.5); White Blood Count 4.9 K/mm3 (4.5-10.0)
[2024-05-02 09:03] LABS: Alanine Aminotransferase 17 U/L (6-35); Alkaline Phosphatase 96 U/L (38-126); Anion Gap 4 mmol/L (4-12); Aspartate Amino Transferase 33 U/L (14-36); Bilirubin,Total 0.9 mg/dL (0.2-1.3); Blood Urea Nitrogen 21 mg/dL (7-17); Calcium 9.2 mg/dL (8.4-10.2); Carbon Dioxide 29 mmol/L (22-30); Chloride 104 mmol/L (98-107); Cholesterol 222 mg/dL (0-200); Estimated Glomerular Filt Rate > 60; Glucose 89 mg/dL (65-110); HDL Direct 69 mg/dL; Potassium 4.2 mmol/L (3.4-5.0); Sodium 137 mmol/L (137-145); Triglycerides 51 mg/dL (<150)
[2024-05-02 09:14] LABS: LDL Cholesterol Direct 105 mg/dL
[2024-05-02 09:48] LABS: Vitamin D 25 Hydroxy 62.4 ng/mL
== END 2024-05-02 07:59 | disposition home or self-care (01) ==
PROVIDERS: PCP Family Medicine; Visit Provider Family Medicine
DX: E55.9 Vitamin D deficiency, unspecified (principal); F31.9 Bipolar disorder, unspecified; Z00.00 Encounter for general adult medical examination without abnormal findings; E78.2 Mixed hyperlipidemia; Z13.220 Encounter for screening for lipoid disorders; N39.41 Urge incontinence
CPT/HCPCS: 36415; 80053; 80061; 82306; 82607; 85027

== ENCOUNTER 2024-05-29 09:54 | Outpatient (CLI) | payer MEDICARE, SELFPAY ==
[2024-05-29 12:41] LABS: Urine Cotinine NEGATIVE
[2024-05-29 13:05] LABS: Hemoglobin A1C 5.4 % (<5.7)
== END 2024-05-29 09:55 | disposition home or self-care (01) ==
LOC: ANHSURGERY 10:03
PROVIDERS: PCP Family Medicine; Visit Provider Orthopaedic Surgery
DX: Z01.818 Encounter for other preprocedural examination (principal); M16.12 Unilateral primary osteoarthritis, left hip
CPT/HCPCS: 80307; 83036; 87081

== ENCOUNTER 2024-06-05 08:34 | Outpatient (CLI) | payer MEDICARE, SELFPAY ==
--- NOTE | ~2024-06-05 | NM_ITS ---
EXAMINATION: NM lizette stress w perfusion DATE: 06/05/2024 11:59 WINDOW GLAZIER INDICATION: Cardiac murmur TECHNIQUE: Rest images were obtained following intravenous administration of 10.9 mCi Tc99m tetrofosm in (Myoview). The patient was infused intravenously with Lexiscan (regadenoson). Then, 34.5 mCi Tc99m tetrofosmin (Myoview) was administered intravenously, and stress images were obtained. Data was mesfin nstructed into short axis and horizontal and vertical long axis SPECT images. Gated SPECT images were also obtained. COMPARISON: None. FINDINGS: There is no definite reversible or fixed perfusion abnormality to suggest ischemia or infar ction. There is no segmental wall motion abnormality. Left ventricular ejection fraction measures 8 0%. IMPRESSION: 1. No definite ischemia or infarct. 2. Normal left ventricular ejection fraction measuring 80%. Reviewed, dictated and finalized at location B. OW GLAZIER
--- NOTE | 2024-06-05 08:51 | EST_ITS ---
Patient Info Name: Rubi Barnett Age: 84 years : 1940 Gender: Female Ht: 61 in Wt: 126 lbs BSA: 1.58 m2 HR: 70 bpm BP: 153 / 83 mmHg Exam Date: 06/05/2024 11:00 AM Exam Location: Echo Lab Patient Status: Outpatient Admit Date: 06/05/2024 Staff Ordering Physician: Santiago Clark DO Attending Provider: Santiago Clark DO Exercise Technologist: Kaylyn Chavez [facility] Exercise Physician: Santiago Clark DO Exam Type: CA stress lizette w NM Study Info A regadenoson stress test was performed. Summary 1. 1. Negative lexiscan stress test for ischemic ST changes by ECG criteria. 2. 2. Baseline hypertension. 3. 3. Nuclear scan to follow and will be reported separately. Please correlate with it. 4. 4. Patient informed of the above results. Protocol: Lexiscan Stress ECG Details Stage: REST Duration (min): 2 min : 18 sec HR (bpm): 63 SBP (mmHg): 153 DBP (mmHg): 83 Stage: REST Duration (min): 7 min : 55 sec HR (bpm): 64 SBP (mmHg): 153 DBP (mmHg): 83 Stage: STAGE 1 Duration (min): 1 min : 0 sec HR (bpm): 85 SBP (mmHg): 151 DBP (mmHg): 95 Stage: RECOVERY Duration (min): 1 min : 0 sec HR (bpm): 94 SBP (mmHg): 151 DBP (mmHg): 95 Stage: RECOVERY Duration (min): 2 min : 0 sec HR (bpm): 89 SBP (mmHg): 151 DBP (mmHg): 95 Stage: RECOVERY Duration (min): 3 min : 0 sec HR (bpm): 88 SBP (mmHg): 147 DBP (mmHg): 90 Stage: RECOVERY Duration (min): 3 min : 35 sec HR (bpm): 89 SBP (mmHg): 147 DBP (mmHg): 90 Rest HR: 64 bpm Peak HR: 94 bpm Rest Sys BP: 153 mmHg Peak Sys BP: 151 mmHg Max Pred HR: 138 bpm % Max Pred HR: 68 % Target HR: 117 bpm Max RPP: 14,194 bpm*mmHg Termination Reason: Completed protocol Cardiac Symptoms: Shortness of breath Total Time: 1 min : 0 sec Rest Au BP: 83 mmHg Peak Au BP: 95 mmHg Total Dose: 0.4 mg Resting ECG Sinus rhythm. Stress ECG No ST changes. Arrhythmias None. Report Signatures
--- NOTE | 2024-06-05 09:02 | ECHO_ITS ---
Patient Info Name: Rubi Barnett Age: 84 years : 1940 Gender: Female Ht: 61 in Wt: 126 lbs BSA: 1.58 m2 HR: 79 bpm BP: 162 / 94 mmHg Technical Quality: Fair Exam Date: 06/05/2024 9:06 AM Exam Location: Echo Lab Patient Status: Outpatient Admit Date: 06/05/2024 Staff Ordering Physician: Santiago Clark DO Humanities And Languages Professor: Toyin Melvin RDCS Attending Provider: Santiago Clark DO Referring Physician: Eduardo BARDALES; Exam Type: CA echo doppler color flow Study Info Indications - CARDIAC MURMUR - PRE OP TESTING Complete two-dimensional, color flow and Doppler transthoracic echocardiogram is performed. Summary 1. Complete two-dimensional, color flow and Doppler transthoracic echocardiogram is performed. 2. Left ventricular chamber dimension is normal. 3. Left ventricular systolic function is normal, estimated at 65-70%. 4. There is mild concentric increased left ventricular wall thickness. 5. The left ventricular diastolic function is grade I diastolic dysfunction. 6. E/e' 6 is not elevated. 7. There is mild aortic valve sclerosis. 8. There is trace mitral valve regurgitation. 9. No pulmonary hypertension, estimated pulmonary arterial systolic pressure is 28 mmHg. Left Ventricle E/e' 6 is not elevated. Left ventricular chamber dimension is normal. Left ventricular systolic function is normal, estimated at 65-70%. There is mild concentric increased left ventricular wall thickness. The left ventricular diastolic function is grade I diastolic dysfunction. Right Ventricle Right ventricular systolic function is normal and with normal TAPSE 2.1 cm. Right ventricular chamber dimension is normal. Left Atria Left atrial chamber dimension is normal. Right Atria Right atrial chamber dimension is normal. Aortic Valve The aortic valve is trileaflet. There is mild aortic valve sclerosis. There is no aortic valve stenosis. There is no aortic valve regurgitation. Pulmonic Valve There is no pulmonic regurgitation. Mitral Valve There is no mitral valve stenosis. There is trace mitral valve regurgitation. Tricuspid Valve There is no tricuspid valve regurgitation. No pulmonary hypertension, estimated pulmonary arterial systolic pressure is 28 mmHg. Pericardium/Pleural There is no pericardial effusion. Inferior Vena Cava Normal inferior vena cava with >50% collapse upon inspiration consistent with normal right atrial pressure, 5 mmHg. Aorta The aortic root size at the sinus of Valsalva is normal. Left Ventricular Outflow Tract Name Value Normal LVOT 2D LVOT Diameter 1.7 cm LVOT Doppler LVOT Peak Gradient 8 mmHg LVOT Mean Gradient 5 mmHg LVOT VTI 30 cm LVOT VTI/AV VTI Ratio 0.8 LVOT Stroke Volume 72 ml LVOT CO 4.6 l/min LVOT CI 2.9 l/min/m2 Pulmonic Valve Name Value Normal RVOT Doppler RVOT Peak Gradient 2 mmHg PV Doppler PV Peak Gradient 3 mmHg Mitral Valve Name Value Normal MV Doppler MV Peak Gradient 5 mmHg MV Mean Gradient 2 mmHg MV Decel Gem 254 cm/s2 MV PHT 66 ms MV Area (PHT) 3.3 cm2 4.0-5.0 MV Area (Cont Eq VTI) 2.3 cm2 MV Diastolic Function MV E Peak Velocity 58 cm/s MV A Peak Velocity 111 cm/s MV E/A 0.5 MV Decel Time 228 ms MV Annular TDI MV E/e' (Septal) 8.2 <=8.0 MV E/e' (Lateral) 5.9 <=8.0 MV E/e' (Average) 7.1 Tricuspid Valve Name Value Normal TV Regurgitation Doppler TR Peak Velocity 239 cm/s TR Peak Gradient 23 mmHg Estimated PAP/RSVP RA Pressure 5 mmHg <=5 PA Systolic Pressure 28 mmHg <36 RV Systolic Pressure 28 mmHg <36 Aorta Name Value Normal Ascending Aorta Ao Root Diameter (MM) 2.6 cm Ao Root Diam Index (MM) 1.7 cm/m2 Aortic Valve Name Value Normal AV Doppler AV Peak Velocity 161 cm/s AV Peak Gradient 10 mmHg AV Mean Gradient 6 mmHg AV VTI 37 cm AV Area (Cont Eq VTI) 1.9 cm2 >=3.0 AV Area (Cont Eq Stephan) 2.1 cm2 AV Regurgitation 2D LVOT Area 2.4 cm2 Ventricles Name Value Normal LV Dimensions 2D/MM IVS Diastolic Thickness (2D) 1.1 cm 0.6-1.0 LVID Diastole (2D) 3.7 cm 3.8-5.2 LVIW Diastolic Thickness (2D) 1.4 cm 0.6-0.9 LVID Systole (2D) 2.1 cm 2.2-3.5 LVOT Diameter 1.7 cm LV Mass (2D Cubed) 161.44 g 67.00-162.00 LV Mass Index (2D Cubed) 102 g/m2 43-95 Relative Wall Thickness (2D) 0.75 LV Fractional Shortening/Ejection Fraction 2D/MM LV Fractional Shortening (2D) 45 % 27-45 LV EF (2D Teicholz) 77 % 54-74 LV Diastolic Volume (4C MOD) 58 ml LV EF (4C MOD) 69 % LV Diastolic Volume (2C MOD) 52 ml LV EF (2C MOD) 70 % LV Diastolic Volume (BP MOD) 55 ml 46-106 LV Diastolic Volume Index (BP MOD) 35 ml/m2 29-61 LV Systolic Volume (BP MOD) 17 ml 14-42 LV Systolic Volume Index (BP MOD) 11 ml/m2 8-24 LV EF (BP MOD) 69 % 54-74 LV Diastolic Length (4C) 7.2 cm LV Systolic Length (4C) 5.3 cm LV Stroke Volume (4C MOD) 41 ml Atria Name Value Normal LA Dimensions LA Dimension (MM) 2.1 cm 2.7-3.8 LA Volume (4C A-L) 31 ml LA Volume (BP A-L) 44 ml RA Dimensions RA Area (4C) 14.8 cm2 <=18.0 Report Signatures
== END 2024-06-05 08:35 | disposition home or self-care (01) ==
PROVIDERS: PCP Family Medicine; Visit Provider Internal Medicine Cardiovascular Disease
DX: Z01.818 Encounter for other preprocedural examination (principal); R01.1 Cardiac murmur, unspecified; I42.2 Other hypertrophic cardiomyopathy; I51.89 Other ill-defined heart diseases; I35.8 Other nonrheumatic aortic valve disorders
CPT/HCPCS: 78452; 93017; 93306; A9502; J2785

== ENCOUNTER 2024-06-16 02:53 | Day surgery (SDC) | payer MEDICARE, SELFPAY ==
[2024-05-29 10:16] VITALS: BP 141/67; PULSE 82; RESP 16; TEMP 37; O2SAT 98; BMI 24.0
--- NOTE | 2024-05-29 10:50 | PC.NURSE ---
Report to the Outpatient Waiting Room, entrance under the green pavilion located off [facility], at time __06:00am on date _06/16/24 . Planned Procedure Time: 07:30am .? Time changes happen often and if your time is changed the preop area will call you the afternoon before. - You and your visitor will be asked to self-screen and do not enter if you have any COVID symptoms. Please call surgeon if you need to reschedule. - A mask is optional within the hospital at this time. Patients may have clear liquids (water, carbonated beverages, clear teas, apple juice) until 3 hours prior to surgery with a maximum of 20 ounces. - No food from midnight until time of surgery and no smoking. This includes no chewing gum, candy or mints.(04:30am) Take only the following medications with a SIP of water on the morning of surgery: Tylenol if needed for pain DO NOT STOP ANY OF YOUR OTHER PRESCRIPTION MEDICATIONS PRIOR TO SURGERY EXCEPT THE FOLLOWING Medications to discontinue per physician ___Stop all Vitamins, supplements, and Meloxicam [address] Horvath Date to take last dose___06/08/24 Please no make-up, nail japanese, hairspray, perfume, deodorant, or body powder the day of surgery.? No jewelry (including any body piercings) or valuables the day of surgery, leave them at home.? Please take a shower or bath the night before, or the morning of, surgery with an antibacterial soap.?Per Guillermo Guerrero scrub both night before and of as ordered. Wear comfortable, loose fitting clothing.? - Jewelry must be removed prior to entering the operating room.? Rings and piercings that are not removed may be cut off. - The hospital will not accept responsibility for valuables.? - Please leave all valuables, including medications, at home the day of surgery. If you are going home after surgery, a licensed shuttle bus driver must drive you home.? - NO public transportation without another adult if you receive anesthesia. - We recommend that an adult stay with you for 24 hours following discharge. - We also recommend that you do not drive, make important decision, drink alcoholic beverages, or take any drugs that were not prescribed by your health care provider for at least 24 hours after your discharge time. Follow any additional instructions given to you from your surgeon. Telephone instructions given to ___Patient and asked if any additional questions and then verbalized understanding. Patient advised to call surgeon office or pre surgery nurse liaison [phone] if any additional questions.
--- NOTE | 2024-06-15 07:27 | PM.IMHP ---
H&P: HPI History of Present Illness Date/Time: 06/15/24 07:27 Chief Complaint: Left hip DJD Narrative: 84-year-old female patient of Dr. Parsons who presents today for a left anterior total hip arthroplasty. 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 She is a very active 84-year-old very healthy. Her hip our ever is limiting her activities. She has pain in the groin and anterior lateral hip on a daily basis. It keeps her from activities. She has taking meloxicam 7.5 mg daily for over 6 months. She has occasionally used a cane due to the pain in the hip. At this point patient feels she would rather proceed with total hip arthroplasty rather continue doing with the symptoms. Review of Systems Review of Systems: All systems reviewed & are unremarkable except as noted in HPI and below PMFSH Past Medical History Medical History Colon cancer screening Bipolar 1 disorder History of chicken pox Surgical History Surgical History History of colonoscopy History of appendectomy History of ankle surgery H/O hand surgery Family History Family History Sibling Asthma Mother Depression Heart disease Grandparent Alcoholism Social History Social History Smoking status: Never smoker Second hand tobacco smoke exposure: No Additional smoking assessment comments: Denies any nicotine use Alcohol intake: current Drinks per week: 7 Alcohol use details: wine 1 glass at lunch daily Substance use: current Substance use type: marijuana Other substance usage details: pipe w marijuana few times a week Do You Feel Safe in your Home?: Yes Lack of Transportation: No Lack of Food: Never True Current Housing: I Have Housing Concerned About Future Housing: No Difficulty Paying Gas/Electric Bills: No Difficulty Paying for Meds: No Currently Unemployed: No Education: Associate Degree Difficulty w/ Childcare or Family Care: No Living arrangements: other Additional living arrangements comments: Acute Rehab hopefully per pt Occupation/Education: retired 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 Gender identity (if verbalized by the patient): Female Spiritual care concerns: No Meds Home Medications and Allergies Home Medications ?Medication ?Instructions ?Recorded ?Confirmed ?Type coenzyme Q10 100 mg capsule 100 mg PO DAILY #1 cap 11/06/22 06/01/24 Rx calcium 600 mg (as 1 cap PO DAILY 11/12/23 06/01/24 History carbonate)-vitamin D3 12.5 mcg (500 unit) capsule (Calcium with Vit D3) red yeast rice 600 mg tablet 600 mg PO BID 11/12/23 06/01/24 History vitamin B complex 1 tablet PO DAILY 11/12/23 06/01/24 History acetaminophen 500 mg tablet 500 mg PO .HS PRN pain 05/06/24 06/01/24 History (Tylenol Extra Strength) meloxicam 7.5 mg tablet 7.5 mg PO DAILY 05/06/24 06/01/24 History ascorbic acid (vitamin C) 1,000 mg 1 g PO DAILY 05/27/24 06/01/24 History capsule cholecalciferol (vitamin D3) 10 10 mcg PO DAILY 05/27/24 06/01/24 History mcg (400 unit) capsule Allergies Allergy/AdvReac Type Severity Reaction Status Date / Time ragweed pollen Allergy Mild Unknown Verified 05/29/24 10:09 codeine AdvReac Fainting Verified 05/29/24 10:09 Exam Narrative: 84-year-old female, she appears younger than her stated age. She is 5 ft 1 and 130 lb. Talked with a mild limp. She does use a cane. Left hip flexes to 100 externally rotates to 10? internally rotates to 10? pain. Internal and external rotation both cause severe groin pain. Stinchfield maneuver causes her anterior groin and proximal thigh pain. She has mild tenderness over greater trochanter. She has normal abduction strength in the lateral position. There is no edema in either lower extremity. 1+ dorsalis pedis and 2+ posterior tibial artery pulse palpable. Skin around the hip and groin look normal. Resp: Auscultation: clear to auscultation bilaterally Cardio: Rate: regular rate Rhythm: regular rhythm Assessment and Plan Assessment and plan (1) Osteoarthritis of left hip: Qualifiers: Osteoarthritis type: primary Qualified Code(s): M16.12 - Unilateral primary osteoarthritis, left hip Code(s): M16.12 - Unilateral primary osteoarthritis, left hip Status: Acute Assessment and Plan: 84-year-old female who has severe osteoarthritis left hip with daily symptoms. Again patient is very active healthy 84-year-old and wishes to remain this way as long as possible. She wishes to proceed with surgery rather than continue nonsurgical treatment at this point. Surgical procedures well as the risks and complications were discussed in detail all questions were answered and we will proceed. Patient will see her primary care doctor for pre-surgical clearance. She has seen cardiology and has had a stress test. There were no abnormalities seen on the stress test ejection fraction was at 80% she has been cleared from cardiology. She will stop her meloxicam 1 week prior to surgery. Hemoglobin was 12.4 and platelets were 214. Chem panel was all within normal limits creatinine is 0.60. She had a negative nasal swab.
[2024-06-16] VITALS (18 sets, daily range): BP systolic 103–150; BP diastolic 48–79; PULSE 71–91; RESP 12–17; TEMP 36.2–36.5; O2SAT 88–100
--- NOTE | ~2024-06-16 | XR_ITS ---
EXAMINATION: XR surgery orthopedic DATE: 06/16/2024 8:15 CLEAT LAYER INDICATION: LEFT TOTAL HIP ANTERIOR APPROACH . TECHNIQUE: 2 fluoroscopic images of the left hip were obtained during left total hip arthroplasty, an terior approach, performed by Kirit Monk MD. I was not present during the procedure. Fluoroscop y exposure time was 60.9 seconds. Air Kerma 12.66 mGy. DAP 0.18657 mGym2. COMPARISON: 01/27/2024 FINDINGS/IMPRESSION: Fluoroscopic documentation of left total hip arthroplasty, anterior approach. Please refer to the ope rative note for complete procedural details . Reviewed, dictated and finalized at location K. T LAYER
--- NOTE | ~2024-06-16 | XR_ITS ---
Left Hip Technique: Portable AP and lateral views Clinical History: Status post hip arthroplasty Findings: Patient is status post left hip arthroplasty. Orthopedic hardware alignment appears anatomi c. No hardware complication is evident. Subcutaneous emphysema and swelling is likely postoperative i n nature. Skin paul are present. No acute osseous fracture is seen. Impression: Status post total left hip arthroplasty, without evidence of hardware complication. Reviewed, dictated and finalized at location M. PULL MACHINE OPERATOR Impression: Status post total left hip arthroplasty, without evidence of hardware complicat ion.
[2024-06-16] MEDS: TRANEXAMIC ACID 1,000MG/ISO100 1,000 MG/100 ML BAG 200 MG IVPB (07:00)
[2024-06-16] MEDS: LACTATED RINGERS 1,000 ML 30 ML IV CONT ×2 (07:00→11:18)
[2024-06-16] MEDS: ACETAMINOPHEN 500 MG TABLET 1000 MG PO (07:00)
[2024-06-16] MEDS: VANCOMYCIN 1,000 MG/NS 250 ML BAG 250 MG IVPB (07:00)
--- NOTE | 2024-06-16 07:18 | WPDHPUPDATE1 ---
History and Physical Update Update Date/Time: 06/16/24 07:18 History and Physical has been reviewed, including an updated exam of the patient. There are NO changes in the patient's condition. Risks, benefits, and alternatives have been discussed and questions answered. Patient agrees to proceed with procedure.
--- NOTE | 2024-06-16 07:25 | WPDANESEPPF ---
Anes - Initial Pre Proc Eval Procedure: Operation Date: 06/16/24 07:30 Proposed Procedures p Left Total Hip Arthroplasty Anterior Approach - Kirit Monk MD Date/Time: 06/16/24 07:25 Surgeon: Kirit Monk MD Pre Op Diagnosis: O A Left Hip Patient Data Age: 84 Gender: F Height: 1.55 m Weight: 57.1 kg Last Vital Signs Temp 97.7 F 06/16/24 07:00 Pulse 71 06/16/24 07:00 Resp 14 06/16/24 07:00 BP 150/62 H 06/16/24 07:00 Pulse Ox 97 06/16/24 07:00 O2 Del Method Room Air 06/16/24 07:00 Allergies Allergy/AdvReac Type Severity Reaction Status Date / Time ragweed pollen Allergy Mild Unknown Verified 06/16/24 07:26 codeine AdvReac Fainting Verified 06/16/24 07:26 Home Medications ?Medication ?Instructions ?Recorded ?Confirmed ?Type coenzyme Q10 100 mg capsule 100 mg PO DAILY #1 cap 11/06/22 06/01/24 Rx calcium 600 mg (as 1 cap PO DAILY 11/12/23 06/01/24 History carbonate)-vitamin D3 12.5 mcg (500 unit) capsule (Calcium with Vit D3) red yeast rice 600 mg tablet 600 mg PO BID 11/12/23 06/01/24 History vitamin B complex 1 tablet PO DAILY 11/12/23 06/01/24 History acetaminophen 500 mg tablet 500 mg PO .HS PRN pain 05/06/24 06/01/24 History (Tylenol Extra Strength) meloxicam 7.5 mg tablet 7.5 mg PO DAILY 05/06/24 06/01/24 History ascorbic acid (vitamin C) 1,000 mg 1 g PO DAILY 05/27/24 06/01/24 History capsule cholecalciferol (vitamin D3) 10 10 mcg PO DAILY 05/27/24 06/01/24 History mcg (400 unit) capsule Laboratory Tests 06/16/24 06:43 Blood Type Pending Antibody Screen Pending Patient hx anesthesia problems: other (slow to awaken) Family hx anesthesia problems: none Results Review: All pre-operative results and documents have been reviewed as part of the pre-operative evaluation. [facility] Past Medical History Medical History Colon cancer screening Bipolar 1 disorder History of chicken pox Surgical History Surgical History History of colonoscopy History of appendectomy History of ankle surgery H/O hand surgery Family History Family History Sibling Asthma Mother Depression Heart disease Grandparent Alcoholism Social History Social History Smoking status: Never smoker Second hand tobacco smoke exposure: No Additional smoking assessment comments: Denies any nicotine use Alcohol intake: current Drinks per week: 7 Alcohol use details: a glass of wine at lunch everyday per patient Substance use: current Substance use type: marijuana Other substance usage details: Once every other day Do You Feel Safe in your Home?: Yes Lack of Transportation: No Lack of Food: Never True Current Housing: I Have Housing Concerned About Future Housing: No Difficulty Paying Gas/Electric Bills: No Difficulty Paying for Meds: No Currently Unemployed: No Education: Associate Degree Difficulty w/ Childcare or Family Care: No Living arrangements: alone Additional living arrangements comments: Acute Rehab hopefully per pt Occupation/Education: retired 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 Informed Consent: The patient's anesthetic plan and its attendant risks and benefits were discussed with the patient/family/POA. Questions were solicited and answers provided to the satisfaction of the patient/family/POA.
[2024-06-16] MEDS: ceFAZolin 2 GM/D5W 50 ML 2 GM/50 ML BAG IVPB (07:38)
[2024-06-16] MEDS: SODIUM CHLORIDE 0.9% IV 37.7 ML, MORPHINE SULFATE INJ (*CRX) 2 MG, ROPivacaine HCL 1% 2... INFILTRATE (08:36)
[2024-06-16] MEDS: ceFAZolin SODIUM 1 GM VIAL 3 GM IRRIGATION (09:04)
[2024-06-16] MEDS: TRANEXAMIC ACID 1,000 MG/10 ML AMPUL 1000 MG IV PUSH (11:04)
[2024-06-16] MEDS: ceFAZolin SODIUM 1 GM VIAL IV PUSH (11:07)
--- NOTE | 2024-06-16 11:35 | PM.OP ---
Procedure Note - Brief Procedure Note - Brief Date of procedure: 06/16/24 O A Left Hip Procedure performed: Left anterior total hip arthroplasty Surgeon: LYDIA Majano Findings: 84-year-old female who underwent left anterior total hip arthroplasty on 06/16. I was involved the procedure including positioning the patient on the OR table in 1st assisting through the time surgery. Total time spent was 3-1/2 hours
--- NOTE | 2024-06-16 12:07 | P.OP_ITS ---
Procedure Note - Detailed Date of Procedure 06/16/24 Pre-op Diagnosis O A Left Hip Post-op Diagnosis Same Procedure Performed Left total hip arthroplasty Surgeon Kirit Monk MD Anthropologist Physical Clifford Anesthesia General Description of Procedure Patient was brought to the operating room and general anesthesia was administered. She received 2 g of Ancef weight based vancomycin 1 g of TXA preoperatively. Padding was applied the feet boots applied SCDs applied and running during the procedure she was transferred to the [facility] [place] table left hip prepped draped usual fashion. A 10 cm longitudinal incision was made starting 2.5 cm lateral to the ASIS. Dissection would carried down to the fascia over the tensor fascia patricia which was exposed and longitudinally incised and elevated off the anterior 50% of the TFL muscle. Interval between TFL and rectus femoris developed and crossing branches of ascending lateral femoral circumflex vessels were isolated ligated with suture divided. Retractor was placed anteromedial to the capsule. Hip abducted internally rotated and the gluteus minimus elevated off the lateral capsule. The gluteus minimus tendon was very normal. Inverted T capsulotomy was performed. Femoral neck osteotomy was made according to preoperative templating. The femoral neck bone itself was unusually thick for an 84-year-old. The femoral head was removed without difficulty and measured 46.5 mm in diameter. The acetabulum was exposed. Labrum was excised. There was fracturing of the posterior acetabular rim and the loose fragment removed. Osteophytes removed anteriorly. Leg was externally rotated extended and the release of the lateral capsule from the base of the lateral neck was completed. The portion of the conjoined tendon covering the lateral base of the femoral neck was released to expose the lateral base of femoral neck but we did not inci se the interval between conjoined tendon and piriformis as she seemed to have enough mobility without doing that. With the leg back in the horizontal position external rotation and traction acetabulum was exposed and prepared. We medialized with the 42 Reamer. We reamed up to the 46 and this did not reached the anterior and posterior mckeon quite and the 46 trial was quite loose. We reamed to the 47 and then a very light reaming to the 48. We were very careful to avoid reaming posteriorly because of the deficiency of the posterior rim. She had fairly significant wear in the posterior acetabulum and this is likely the reason she had developed stress fracture of the posterior rim. The 48 trial would not quite seat and we planned to use the emphasis cup therefore we introduced the 48 Reamer and did a careful controlled reaming in the orientation the cup fully seating the Reamer. With this the trial could seat and we placed the 48 mm emphasis cup at 40? of abduction and proper anteversion which left the posterior edge of the cup proud of the lateral rim of the posterior column by about 5 or 6 mm and this left the cup about 2 mm deep to the true anterior rim edge. A very adequate Press-Fit was achieved the cup was stable. A single screw was placed in the ilium which also obtained excellent purchase. The 36 inner diameter acetabular liner was placed without difficulty. Additional superolateral osteophyte was removed. The leg was externally rotated extended and with the table hook in place we had excellent femoral exposure without conjoined tendon or piriformis release. The femur was broached to a size 4 brought to the level of the neck cut and complete torsional stability of the broach was visualized. We trialed with the standard neck +5 which was a little bit loose with longitudinal and lateral Shuck and under fluoroscopy the left leg was a little bit shorter. We trialed the 8.5 head which gave equal leg lengths and appropriate stability and soft tissue te nsion. The calcar was planed we confirmed torsional stability of the 4 broach and we chose the size 4 standard neck Actis stem which was fully seated with collar resting on the calcar. There were no cracks noted. We trialed again with the 8.5 head and had appropriate stability and soft tissue tension. The 8.5 stainless steel head was impacted on the clean and dried trunnion hip reduced stability reconfirmed. The arthrotomy closed with 2. Vicryl. Local anesthetic cocktail injected into the periarticular soft tissues. The fascia was closed with running 1. Vicryl a drain placed deep in the subcu skin closed with 2-0 subcutaneous Vicryl and glue. EBL was estimated at 200 cc by Cell Saver. This did not produce enough to return any blood back. I estimated total blood loss at 2:50 a.m.. Additional dose of Ancef and TXA given time wound closure. Patient was transferred postop recovery room stable condition. No known complications. [facility] Billing Surgery - Charge Forward: Surgery Billing (Left total hip arthroplasty)
[2024-06-16] MEDS: fentaNYL CITRATE INJ (*CRX) 100 MCG/2 ML VIAL 25 MCG IV PUSH ×4 (12:08→14:23)
[2024-06-16] MEDS: ONDANSETRON INJ 4 MG/2 ML VIAL IV PUSH (12:24)
[2024-06-16] MEDS: ACETAMINOPHEN 325 MG TABLET 650 MG PO ×2 (16:11→19:31)
[2024-06-16] MEDS: SENNA/DOCUSATE SODIUM TABLET 2 TAB PO (16:11)
[2024-06-16] MEDS: oxyCODONE HCL (*CRX) 2.5 MG TAB IR PO ×3 (16:11→22:53)
[2024-06-16] MEDS: ceFAZolin 1 GM/NS 50 ML 1 GM/50 ML BAG IVPB (16:12)
--- NOTE | 2024-06-16 16:25 | PM.IMCN ---
Assessment and Plan Assessment and plan (1) Osteoarthritis of left hip: Code(s): M16.12 - Unilateral primary osteoarthritis, left hip Status: Acute Assessment and Plan: Status post left anterior total hip arthroplasty 06/16/2024 Orthopedics is primary Pain management per Ortho Weight-bearing as tolerated, PT OT eval and treat (2) Bipolar disorder with depression: Code(s): F31.9 - Bipolar disorder, unspecified Status: Acute Assessment and Plan: Not on medication HPI Date of Consult Consult date: 06/16/24 Requesting Physician: Kirit Monk MD Primary Care Provider: Hany Parsons MD Consult Narrative Narrative: Rubi Barnett is a 84 year old female bipolar not on medication who presented to the hospital on 06/15/2024 for left anterior total hip arthroplasty. The hospitalist team was consulted for medical management. Patient states that she had elective surgery due to acute pain in her hip. After surgery she has been able to walk to the bathroom, and pain has been controlled. Patient denies nausea or vomiting. Review of Systems Review of Systems: 12 systems were reviewed and are negative except for as per HPI. [facility] Past Medical History Medical History Colon cancer screening Bipolar 1 disorder History of chicken pox Surgical History Surgical History History of colonoscopy History of appendectomy History of ankle surgery H/O hand surgery Family History Family History Sibling Asthma Mother Depression Heart disease Grandparent Alcoholism Social History Social History Smoking status: Never smoker Second hand tobacco smoke exposure: No Additional smoking assessment comments: Denies any nicotine use Alcohol intake: current Drinks per week: 7 Alcohol use details: a glass of wine at lunch everyday per patient Substance use: current Substance use type: marijuana Other substance usage details: Once every other day Do You Feel Safe in your Home?: Yes Lack of Transportation: No Lack of Food: Never True Current Housing: I Have Housing Concerned About Future Housing: No Difficulty Paying Gas/Electric Bills: No Difficulty Paying for Meds: No Currently Unemployed: No Education: Associate Degree Difficulty w/ Childcare or Family Care: No Living arrangements: alone Additional living arrangements comments: Acute Rehab hopefully per pt Occupation/Education: retired 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/education 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 Gender identity (if verbalized by the patient): Female Spiritual care concerns: No Meds Home Medications and Allergies Home Medications ?Medication ?Instructions ?Recorded ?Confirmed ?Type coenzyme Q10 100 mg capsule 100 mg PO DAILY #1 cap 11/06/22 06/01/24 Rx calcium 600 mg (as 1 cap PO DAILY 11/12/23 06/16/24 History carbonate)-vitamin D3 12.5 mcg (500 unit) capsule (Calcium with Vit D3) red yeast rice 600 mg tablet 600 mg PO BID 11/12/23 06/16/24 History vitamin B complex 1 tablet PO DAILY 11/12/23 06/16/24 History acetaminophen 500 mg tablet 500 mg PO .HS PRN pain 05/06/24 06/01/24 History (Tylenol Extra Strength) meloxicam 7.5 mg tablet 7.5 mg PO DAILY 05/06/24 06/16/24 History ascorbic acid (vitamin C) 1,000 mg 1 g PO DAILY 05/27/24 06/16/24 History capsule cholecalciferol (vitamin D3) 10 10 mcg PO DAILY 05/27/24 06/16/24 History mcg (400 unit) capsule Allergies Allergy/AdvReac Type Severity Reaction Status Date / Time ragweed pollen Allergy Mild Unknown Verified 06/16/24 07:26 codeine AdvReac Fainting Verified 06/16/24 07:26 Vital Signs Vital Signs - 24 hr 06/16/24 07:00 06/16/24 11:18 06/16/24 11:30 Temperature 97.7 F 97.4 F L Pulse Rate 71 81 81 Respiratory Rate 14 16 16 Blood Pressure 150/62 H 122/48 L 124/61 Pulse Oximetry 97 97 97 Oxygen Delivery Room Air Simple Face Mask Simple Face Mask Oxygen Flow Rate 6 6 06/16/24 11:45 06/16/24 11:50 06/16/24 12:00 Temperature Pulse Rate 79 72 Respiratory Rate 14 14 Blood Pressure 127/63 118/64 Pulse Oximetry 99 99 Oxygen Delivery Simple Face Mask Room Air Room Air Oxygen Flow Rate 6 06/16/24 12:15 06/16/24 12:30 06/16/24 13:00 Temperature Pulse Rate 72 73 76 Respiratory Rate 14 12 14 Blood Pressure 124/62 119/58 L 127/66 Pulse Oximetry 88 L 99 100 Oxygen Delivery Nasal Cannula Nasal Cannula Nasal Cannula Oxygen Flow Rate 2 2 2 06/16/24 13:30 06/16/24 13:35 06/16/24 14:00 Temperature 97.3 F L Pulse Rate 85 80 73 Respiratory Rate 15 16 12 Blood Pressure 130/67 130/67 123/69 Pulse Oximetry 98 100 98 Oxygen Delivery Nasal Cannula Nasal Cannula Nasal Cannula Oxygen Flow Rate 2 2 2 06/16/24 14:35 06/16/24 15:00 06/16/24 15:15 Temperature 97.1 F L 97.6 F 97.6 F Pulse Rate 81 81 84 Respiratory Rate 12 13 13 Blood Pressure 117/68 113/67 126/64 Pulse Oximetry 98 100 100 Oxygen Delivery Nasal Cannula Oxygen Flow Rate 2 06/16/24 15:45 Temperature 97.6 F Pulse Rate 91 Respiratory Rate 15 Blood Pressure 137/79 Pulse Oximetry 100 Oxygen Delivery Oxygen Flow Rate Exam Narrative: General: well appearing, appears stated age. HEENT: normocephalic, atraumatic. Mucous membranes moist. EOMI, PERRLA, bilateral sclera anicteric, no conjunctival injection. Neck supple without JVD, lymphadenopathy, or bruit. Respiratory: clear to ascultation bilaterally. No rales/rhonic/wheezes. Cardiovascular: Regular rate and rhythm, normal S1-S2 upon ascultation. No murmurs, rubs, or clicks. PMI is nondisplaced, capillary refill less than 3 second. Abdomen: Soft, round, no pulsatile masses, nondistended and nontender. No rebound, no guarding. No CVA tenderness, no hepatosplenomegaly. Bowel sounds present to all four quadrants. No high pitch or tinkling sounds, resonant to percussion. Extremities: No cyanosis, clubbing, or edema present. Pulses are palpable 2/2. Left hip dressing clean dry intact. Neuro: Alert and orientated x 4. PERRLA. Cranial nerves 2-12 intact without focal deficit. Skin: Warm, dry, and intact, without rash, erythema, or lesion. Psych: pleasant, cooperative, normal speech, normal affect, no hallucinations, no dysarthia Quality VTE Prophylaxis VTE prophylaxis: mechanical ordered and pharmacologic ordered Hospitalist MIPS Advance Care Plan I have confirmed that the patient's Advanced Care Plan is present, code status is documented, or surrogate decision maker is listed in patient medical record.: Yes Medication Reconciliation I have utilized all available resources to obtain, update and review the patients current medications (includes all prescriptions, OTC, herbals, cannabis, and nutritional supplements).: Yes
--- NOTE | 2024-06-16 17:35 | ADMGEN ---
This patient, Rubi Barnett, was admitted to 2 Medical Room 256-. Patient/family oriented to hospital policies and general routines including ID bracelet, bed and alarms, visiting hours, pain management, procedures, bathroom and other care routines, personal items, smoking policy, room service/diet, and visiting hours. Information on how to activate the Rapid Response Team has been discussed. Patient/Family are encouraged to report perceived risks to care and to ask questions if they do not understand what they are told or what they should do.
[2024-06-16] MEDS: VANCOMYCIN 1,000 MG/NS 250 ML 1,000 MG/250 ML BAG 250 MG IVPB (19:31)
[2024-06-16] MEDS: FAMOTIDINE 20 MG TABLET PO (19:33)
[2024-06-17] MEDS: ceFAZolin 1 GM/NS 50 ML 1 GM/50 ML BAG IVPB ×2 (00:17→08:50)
[2024-06-17] MEDS: ACETAMINOPHEN 325 MG TABLET 650 MG PO ×3 (00:17→11:24)
[2024-06-17 00:30] VITALS: BP 114/62; PULSE 86; RESP 17; TEMP 36.4; O2SAT 97
[2024-06-17] MEDS: oxyCODONE HCL (*CRX) 2.5 MG TAB IR PO ×4 (00:39→11:24)
[2024-06-17 04:17] VITALS: BP 136/65; PULSE 87; RESP 16; TEMP 36.7; O2SAT 98
[2024-06-17 05:48] LABS: Basophils Percent Auto 0.4 % (0.2-1.2); Eosinophils Percent Auto 0.4 % (0-4.4); Hematocrit 30.4 % (37.0-47.0); Hemoglobin 9.8 g/dL (12.0-15.0); Immature Granulocyte Absolute 0.03 K/mm3 (0.00-0.031); Immature Granulocyte Percent A 0.3 % (0-0.5); Lymphocytes Absolute Auto 1.34 K/mm3 (0.9-3.2); Lymphocytes Percent Auto 12.9 % (18.3-44.2); Mean Corpuscular HGB Conc 32.2 g/dl (32-36); Mean Corpuscular Hemoglobin 32.1 pg (26-34); Mean Corpuscular Volume 99.7 fl (80-100); Mean Platelet Volume 10.6 fl (7.4-10.4); Monocytes Absolute Auto 1.2 K/mm3 (0.1-0.6); Monocytes Percent Auto 11.5 % (2.6-8.5); Neutrophils Absolute Auto 7.8 K/mm3 (1.3-6.7); Neutrophils Percent Auto 74.5 % (45.5-73.1); Platelet Count Result 174 k/mm3 (150-375); Red Blood Count 3.05 M/mm3 (4.2-5.4); Red Cell Distribution Width 12.7 % (11.5-14.5); White Blood Count 10.4 K/mm3 (4.5-10.0)
[2024-06-17 05:56] LABS: Anion Gap 0 mmol/L (4-12); Blood Urea Nitrogen 13 mg/dL (7-17); Calcium 8.4 mg/dL (8.4-10.2); Carbon Dioxide 28 mmol/L (22-30); Chloride 105 mmol/L (98-107); Estimated CRCL calculation 46 ml/min; Estimated Glomerular Filt Rate > 60; Glucose 108 mg/dL (65-110); Potassium 3.7 mmol/L (3.4-5.0); Sodium 133 mmol/L (137-145)
[2024-06-17] MEDS: VANCOMYCIN 1,000 MG/NS 250 ML 1,000 MG/250 ML BAG 250 MG IVPB (06:29)
[2024-06-17] MEDS: CHOLECALCIFEROL 400 UNITS TABLET (VIT D) PO (08:49)
[2024-06-17] MEDS: APIXABAN 2.5 MG TABLET PO (08:49)
[2024-06-17] MEDS: CELECOXIB 100 MG CAPSULE PO (08:49)
[2024-06-17] MEDS: SENNA/DOCUSATE SODIUM TABLET 2 TAB PO (08:49)
[2024-06-17] MEDS: FAMOTIDINE 20 MG TABLET PO (08:49)
[2024-06-17 09:43] VITALS: BP 126/58; PULSE 78; RESP 16; O2SAT 97
--- NOTE | 2024-06-17 10:24 | P.PNOP_ITS ---
Progress Note: A&P Assessment and Plan (1) S/P hip replacement: Qualifiers: Laterality: left Qualified Code(s): Z96.642 - Presence of left artificial hip joint Code(s): Z96.649 - Presence of unspecified artificial hip joint Status: Acute Assessment and Plan: Patient is 1 day after left total hip replacement. She was able to get up and walk to the bathroom yesterday immediately after surgery and has had very good pain control and she is surprised that she is doing as well as she is doing and rather than going to a rehab facility she would prefer to go home today. On exam she is alert and oriented. She is neurologically intact. Her vital signs are stable. I watched her stand up walk around the room with her walker weight-bearing as tolerated and sit back down and she did well with this. Her incision is dry and intact with minimal swelling around the hip. Her lab studies today show hemoglobin of 9.8 representing acute blood loss anemia expected with hip replacement. Platelets 828226 GFR is greater than 60 creatinine clearance 46. Patient would like to have home health check on her at home since she does live at home and the outdoor emergency care technician as made arrangements for them to visit her in a couple of days. I will have them draw a CBC on Saturday. Subjective Subjective Date/Time Seen: 06/17/24 10:24 Objective Data Vital Signs Vital Signs: Vital Signs - 24 hr 06/16/24 11:18 06/16/24 11:30 06/16/24 11:45 Temperature 36.3 C L Pulse Rate 81 81 79 Respiratory Rate 16 16 14 Blood Pressure 122/48 L 124/61 127/63 Pulse Oximetry 97 97 99 Oxygen Delivery Simple Face Mask Simple Face Mask Simple Face Mask Oxygen Flow Rate 6 6 6 06/16/24 11:50 06/16/24 12:00 06/16/24 12:15 Temperature Pulse Rate 72 72 Respiratory Rate 14 14 Blood Pressure 118/64 124/62 Pulse Oximetry 99 88 L Oxygen Delivery Room Air Room Air Nasal Cannula Oxygen Flow Rate 2 06/16/24 12:30 06/16/24 13:00 06/16/24 13:30 Temperature Pulse Rate 73 76 85 Respiratory Rate 12 14 15 Blood Pressure 119/58 L 127/66 130/67 Pulse Oximetry 99 100 98 Oxygen Delivery Nasal Cannula Nasal Cannula Nasal Cannula Oxygen Flow Rate 2 2 2 06/16/24 13:35 06/16/24 14:00 06/16/24 14:35 Temperature 36.3 C L 36.2 C L Pulse Rate 80 73 81 Respiratory Rate 16 12 12 Blood Pressure 130/67 123/69 117/68 Pulse Oximetry 100 98 98 Oxygen Delivery Nasal Cannula Nasal Cannula Nasal Cannula Oxygen Flow Rate 2 2 2 06/16/24 14:45 06/16/24 15:00 06/16/24 15:15 Temperature 36.4 C 36.4 C Pulse Rate 81 84 Respiratory Rate 13 13 Blood Pressure 113/67 126/64 Pulse Oximetry 100 100 Oxygen Delivery Room Air Oxygen Flow Rate 06/16/24 15:45 06/16/24 16:22 06/16/24 16:45 Temperature 36.4 C 36.4 C Pulse Rate 91 81 Respiratory Rate 15 15 Blood Pressure 137/79 105/65 Pulse Oximetry 100 96 Oxygen Delivery Room Air Oxygen Flow Rate 06/16/24 17:00 06/16/24 20:30 06/17/24 00:30 Temperature 36.3 C L 36.4 C Pulse Rate 75 86 Respiratory Rate 17 17 Blood Pressure 103/57 L 114/62 Pulse Oximetry 97 98 97 Oxygen Delivery Room Air Oxygen Flow Rate 06/17/24 01:15 06/17/24 04:17 06/17/24 09:43 Temperature 36.7 C Pulse Rate 87 78 Respiratory Rate 16 16 Blood Pressure 136/65 126/58 L Pulse Oximetry 98 97 Oxygen Delivery Room Air Oxygen Flow Rate Intake/Output Intake/Output: Intake & Output 06/14/24 06/15/24 06/16/24 06/17/24 23:59 23:59 23:59 23:59 Intake Total 1190 290 Output Total 200 300 Balance 990 -10 Meds/Results Medications: Active Medications Generic Name Dose Route Start Last Admin Trade Name Freq PRN Reason Stop Dose Admin Acetaminophen 650 mg 06/16/24 15:00 06/17/24 06:18 Acetaminophen 325 Mg Tablet PO 650 mg Q6HR JOVANA Administration Apixaban 2.5 mg 06/17/24 09:00 06/17/24 08:49 Apixaban 2.5 Mg Tablet PO 2.5 mg Q12HR JOVANA Administration Cefdinir 300 mg 06/17/24 14:00 Cefdinir 300 Mg Capsule PO Q12HR JOVANA Celecoxib 100 mg 06/17/24 09:00 06/17/24 08:49 Celecoxib 100 Mg Capsule PO 100 mg DAILY JOVANA Administration Famotidine 20 mg 06/16/24 21:00 06/17/24 08:49 Famotidine 20 Mg Tablet PO 20 mg Q12HR JOVANA Administration Morphine Sulfate 2 mg 06/16/24 14:45 Morphine Sulfate (*Crx) 2 Mg/Ml Inj IV PUSH Q2H PRN Breakthrough Pain Rated 4-6 or NPO Naloxone HCl 0.1 mg 06/16/24 14:45 Naloxone Hcl 0.4 Mg/Ml Vial IV PUSH Q2M PRN Opiate Reversal Ondansetron HCl 4 mg 06/16/24 14:45 Ondansetron Inj 4 Mg/2 Ml Vial IV PUSH Q4H PRN Nausea And Vomiting Oxycodone HCl 2.5 mg 06/16/24 15:00 06/17/24 06:19 Oxycodone Hcl (*Crx) 2.5 Mg Tab Ir PO 2.5 mg Q4H JOVANA Administration Oxycodone HCl 2.5 mg 06/16/24 14:45 06/17/24 00:39 Oxycodone Hcl (*Crx) 2.5 Mg Tab Ir PO 2.5 mg Q4H PRN Administration Pain Rated 4-6 Polyethylene Glycol 17 gm 06/17/24 09:00 06/17/24 08:50 Polyethylene Glycol 3350 17 Gm Powd.Pack PO Not Given QAM [facility] Senna/Docusate Sodium 2 tab 06/16/24 17:00 06/17/24 08:49 Senna/Docusate Sodium Tablet PO 2 tab BID JOVANA Administration Vitamin D 400 units 06/17/24 09:00 06/17/24 08:49 Cholecalciferol 400 Units Tablet (Vit D) PO 400 units DAILY JOVANA Administration Radiology Results: ITS Impressions Hip X-Ray 06/16/24 11:35 Impression: Status post total left hip arthroplasty, without evidence of hardware complication. Labs Labs: Laboratory Results - last 24 hr 06/17/24 05:32 WBC 10.4 H RBC 3.05 L Hgb 9.8 L Hct 30.4 L MCV 99.7 MCH 32.1 MCHC 32.2 RDW 12.7 Plt Count 174 MPV 10.6 H Immature Gran % (Auto) 0.3 Neut % (Auto) 74.5 H Lymph % (Auto) 12.9 L [place] % (Auto) 11.5 H Eos % (Auto) 0.4 Baso % (Auto) 0.4 Lymph # (Auto) 1.34 [place] # (Auto) 1.2 H Eos # (Auto) 0.0 Baso # (Auto) 0.0 Abs Immat Gran (auto) 0.03 Absolute Neuts (auto) 7.8 H Absolute Nucleated RBC 0.000 Nucleated RBC % 0.0 Sodium 133 L Potassium 3.7 Chloride 105 Carbon Dioxide 28 Anion Gap 0 L BUN 13 D Creatinine 0.60 L Estim Creat Clear Calc 46 Estimated GFR > 60 Glucose 108 Calcium 8.4
--- NOTE | 2024-06-17 10:59 | PM.DS ---
DS: Admitting Diagnosis Discharge Date 06/17/2024 Admitting Diagnosis Osteoarthritis left hip. DS: Discharge Diagnosis Discharge Diagnosis Plan Patient underwent left total hip arthroplasty on 06/16/2024 DS: Summary Hospital Course Reason for hospitalization: Left total hip arthroplasty Hospital Course: Patient had uneventful postoperative course. She is doing much better than she anticipated and is going to be going home today. She would like home health to assess her home situation make sure she is safe. We will check a CBC in 2 days also through home health care. Time Spent with Patient Time attestation: Total time spent providing and/or coordinating discharge services: DS: Data Data Completed and Pending Labs on day of discharge: Labs from last 24 hours 06/17/24 05:32 WBC 10.4 H RBC 3.05 L Hgb 9.8 L Hct 30.4 L MCV 99.7 MCH 32.1 MCHC 32.2 RDW 12.7 Plt Count 174 MPV 10.6 H Immature Gran % (Auto) 0.3 Neut % (Auto) 74.5 H Lymph % (Auto) 12.9 L [place] % (Auto) 11.5 H Eos % (Auto) 0.4 Baso % (Auto) 0.4 Lymph # (Auto) 1.34 [place] # (Auto) 1.2 H Eos # (Auto) 0.0 Baso # (Auto) 0.0 Abs Immat Gran (auto) 0.03 Absolute Neuts (auto) 7.8 H Absolute Nucleated RBC 0.000 Nucleated RBC % 0.0 Sodium 133 L Potassium 3.7 Chloride 105 Carbon Dioxide 28 Anion Gap 0 L BUN 13 D Creatinine 0.60 L Estim Creat Clear Calc 46 Estimated GFR > 60 Glucose 108 Calcium 8.4 Discharge Plan Discharge Patient Disposition: Home Health Service Discharge Instructions: Per Care Coordination, patient to discharge with [facility] ([phone]) for PT/OT and fpc services. Agency will call to arrange initial visit. Orders for home health 1.Patient is weight-bearing as tolerated with walker with front wheels for 4 weeks. No specific strengthening exercises for the left hip please practice walking with normal gait and safe transfers. 2. CBC on June 19. Call Dr. Monk if hemoglobin less than 8.5 or platelets less than 100,000. ROSE MONK M.D [facility] [address] [place] [address] [address] [place] [address] POST-OPERATIVE DISCHARGE INSTRUCTIONS ANTERIOR TOTAL HIP ARTHROPLASTY 1. Move toes/feet up and down every hour while awake. 2. Be up walking every hour while awake. 3. Use walker interactive multimedia designer if instructed to use walker interactive multimedia designer.When you are allowed to use the cane, use the cane in the opposite hand. 4. When resting, do not rest in the chair. Rather, lie on your back, with back flat, and the leg elevated above heart to minimize swelling. You may put a pillow under your head. Do not rest in a chair. Resting in the chair results in swelling in the leg. Significant swelling could indicate a blood clot and if this occurs, call the office (or go to the ER) to have a venous ultrasound performed. Its ok to sit in the chair to eat and use the toilet and to receive a guest but sitting in a chair will cause your leg to swell. so try to minimize sitting in a chair. 5. Wound Care: Apply a folded 4x4 sponge to incision and hold with crossing strips of 1 inch Transpore tape. 6. Follow weight bearing status as instructed: 7. May shower. Remove dressing before shower and reapply dressing after shower. Patient Instructions: Antibiotic Form, Apixaban (By mouth) Patient Language: [place] Citizen Stand Alone Forms: General Discharge Information Discharge Medications: New acetaminophen 325 mg Tablet 650 mg PO Q6HR Qty: 100 0RF sennosides-docusate sodium [Senokot-S] 8.6-50 mg Tablet 2 tab-cap PO BID Qty: 120 0RF celecoxib [Celebrex] 100 mg Capsule 100 mg PO DAILY Qty: 7 0RF cefdinir 300 mg Capsule 300 mg PO Q12HR Qty: 14 0RF Eliquis 2.5 mg Tablet 2.5 mg PO Q12HR Qty: 70 0RF oxycodone 5 mg tablet 2.5 mg PO Q4H PRN (Reason: pain) Qty: 20 0RF polyethylene glycol 3350 [Miralax] 17 gram Powder In Packet 17 g PO QAM Qty: 30 0RF Continued vitamin B complex Tablet 1 tablet PO DAILY calcium carbonate-vitamin D3 [Calcium 600 with Vitamin D3] 600 mg-12.5 mcg (500 unit) capsule 1 cap PO DAILY ascorbic acid (vitamin C) 1,000 mg capsule 1 g PO DAILY cholecalciferol (vitamin D3) 10 mcg (400 unit) capsule 10 mcg PO DAILY Held red yeast rice 600 mg tablet 600 mg PO BID Hold Instructions: Resume on 07/22/24. Rx Instructions: give with meal/snack coenzyme Q10 100 mg capsule 100 mg PO DAILY Qty: 1 0RF Hold Instructions: Resume on 07/22/24. Discontinued meloxicam 7.5 mg tablet 7.5 mg PO DAILY Patient Comments: Pt to hold [address] Horvath acetaminophen [Tylenol Extra Strength] 500 mg tablet 500 mg PO .HS PRN (Reason: pain)
== END 2024-06-17 12:45 | disposition home health service (06) ==
LOC: ANHSURGERY 05:57 → ANH2MED 14:52
PROVIDERS: Physician Assistant Surgical; PCP Family Medicine; Visit Provider Orthopaedic Surgery
PROC: (CPT 27130; principal; 2024-06-16 07:30)
DX: M16.12 Unilateral primary osteoarthritis, left hip (principal); M25.752 Osteophyte, left hip; F31.9 Bipolar disorder, unspecified; F12.90 Cannabis use, unspecified, uncomplicated; Z98.890 Other specified postprocedural states; Z82.49 Family history of ischemic heart disease and other diseases of the circulatory system
CPT/HCPCS: 27130; 36415; 73502; 80048; 80307; 83036; 85025; 86850; 86900; 86901; 87081; 97110; 97116; 97161; 97165; 97530; 97535; 99199; A9270; C1713; J0171; J0690; J1100; J1885; J2003; J2270; J2371; J2405; J2704; J2795; J3010; J3370; J7120

== ENCOUNTER 2024-06-17 21:47 | Observation (INO) | payer MEDICARE, SELFPAY ==
--- NOTE | ~2024-06-17 | XR_ITS ---
Portable chest x-ray Comparison: 07/16/2023 Clinical History: Status post fall Findings: Lungs are clear, without focal consolidation or pleural effusion. Probable COPD. Cardiome diastinal silhouette is stable. Bones and soft tissues are unremarkable. Impression: Clear lungs. Probable COPD. Reviewed, dictated and finalized at location . 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 Probable COPD.
--- NOTE | ~2024-06-17 | XR_ITS ---
AP view of the pelvis and AP and lateral views of the left hip Clinical history: Pain COMPARISON: 06/16/2024 Findings: There is acute comminuted fracture of the left greater trochanter, extending to the interfa ce of the femoral stem component of left hip arthroplasty hardware. No dislocation evident. Moderate degenerative change of the right hip joint noted.. Bilateral hip and SI joint spaces are preserved. S oft tissues are unremarkable. Impression: Acute comminuted fracture which appears to be isolated to the left greater trochanter, extending to t he interface of the underlying hardware/femoral stem component. Reviewed, dictated and finalized at location M. L WORKER Impression: Acute comminuted fracture which appears to be isolated to the left greater troc hanter, extending to the interface of the underlying hardware/femoral stem comp onent.
[2024-06-17 21:48] VITALS: BP 158/46; PULSE 90; RESP 18; TEMP 36.9; O2SAT 98
[2024-06-17] MEDS: HYDROmorphone HCL INJ (*CRX) 1 MG/ML SYR 0.5 MG IV PUSH (22:48)
[2024-06-17 22:50] VITALS: O2SAT 87
[2024-06-17 22:57] VITALS: BP 169/78; PULSE 98; RESP 15; TEMP 38; O2SAT 94
[2024-06-17 22:59] VITALS: PULSE 95; RESP 15; TEMP 38.3; O2SAT 90
--- NOTE | 2024-06-17 23:16 | ED_ITS ---
HPI - Fall General Chief Complaint: Fall Stated Complaint: fall, s/p hip surgery Time Seen by Provider: 06/17/24 23:04 Source: patient Mode of arrival: EMS Limitations: no limitations History of Present Illness HPI Narrative: This is a 84 year old female that presents to the ER for a fall today with left hip pain. She underwent left hip arthroplasty yesterday for osteoarthritis. Today she was bending down to pick something up and she fell onto her back/left side. Reports worsening left hip pain since. She did not hit her head or lose consciousness. Noted to be febrile in the ER. Denies any localizing infectious symptoms. Related Data Home Medications ?Medication ?Instructions ?Recorded ?Confirmed ?Last Taken ?Type calcium 600 mg (as 1 cap PO DAILY 11/12/23 06/16/24 06/12/24 History carbonate)-vitamin D3 12.5 mcg (500 unit) capsule (Calcium with Vit D3) red yeast rice 600 mg tablet 600 mg PO BID 11/12/23 06/16/24 06/12/24 History vitamin B complex 1 tablet PO DAILY 11/12/23 06/16/24 06/12/24 History ascorbic acid (vitamin C) 1,000 mg 1 g PO DAILY 05/27/24 06/16/24 06/12/24 History capsule cholecalciferol (vitamin D3) 10 10 mcg PO DAILY 05/27/24 06/16/24 06/12/24 History mcg (400 unit) capsule Allergies Allergy/AdvReac Type Severity Reaction Status Date / Time ragweed pollen Allergy Mild Unknown Verified 06/17/24 21:56 codeine AdvReac Fainting Verified 06/17/24 21:56 Review of Systems 2 Review of Systems: CONSTITUTIONAL: Denies fever ENT: Denies rhinorrhea, congestion, sore throat CARDIOVASCULAR: Denies chest pain RESPIRATORY: Denies cough or dyspnea. GASTROINTESTINAL: Denies abdominal pain, nausea, vomiting GENITOURINARY: Denies dysuria MUSCULOSKELETAL: Reports joint pain and myalgia. Denies back pain NEUROLOGIC: Denies numbness, or weakness. All systems reviewed & are unremarkable except as noted in HPI and below PMFSH Past Medical History Medical History Colon cancer screening Bipolar 1 disorder History of chicken pox Surgical History Surgical History History of colonoscopy History of appendectomy History of ankle surgery H/O hand surgery Family History Family History Sibling Asthma Mother Depression Heart disease Grandparent Alcoholism Social History Social History Smoking status: Never smoker Second hand tobacco smoke exposure: No Additional smoking assessment comments: Denies any nicotine use Alcohol intake: current Drinks per week: 7 Alcohol use details: a glass of wine at lunch everyday per patient Substance use: current Substance use type: marijuana Other substance usage details: Once every other day Do You Feel Safe in your Home?: Yes Lack of Transportation: No Lack of Food: Never True Current Housing: I Have Housing Concerned About Future Housing: No Difficulty Paying Gas/Electric Bills: No Difficulty Paying for Meds: No Currently Unemployed: No Education: Associate Degree Difficulty w/ Childcare or Family Care: No Living arrangements: alone Additional living arrangements comments: Acute Rehab hopefully per pt 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 HEAD: Normocephalic, atraumatic. EYES: PERRLA and EOMI. ENT: Nares clear, no rhinorrhea or epistaxis. Mucous membranes moist. Oropharynx without tonsillar hypertrophy exudate or other lesions. Bilateral TMs pearly kwong non-bulging NECK: Supple. No adenopathy or masses. CHEST: Clear to auscultation. No respiratory distress. No wheezes rales or rhonchi HEART: Regular rate and rhythm. No murmur heard. Normal peripheral pulses. ABDOMEN: Soft, nontender, nondistended, normal active bowel sounds. EXTREMITIES: Normal range of motion, except decreased active ROM in the left hip. No edema. Normal DP pulse. Normal sensation SKIN: Warm, dry, no rash. NEURO: No focal deficits. Alert and oriented x3. CN II-XII grossly intact PSYCH: Normal mood and affect Course Course Emergency Course: patient and family updated on workup and recommendation for admission Consultations Consultation #1: Spoke with Dr. Monk who will consult. Recommends admission for rehab consult Date: 06/18/24 Consultation #2: spoke with hospitalist about patient and workup who accepts admission Date: 06/18/24 Vital Signs Vital signs: Vital Signs Temperature 98.4 F 06/17/24 21:48 Pulse Rate 90 06/17/24 21:48 Respiratory Rate 18 06/17/24 21:48 Blood Pressure 158/46 H 06/17/24 21:48 Pulse Oximetry 98 06/17/24 21:48 Oxygen Delivery Room Air 06/17/24 21:48 Temperature 100.9 F H 06/17/24 23:31 Pulse Rate 96 06/17/24 23:31 Respiratory Rate 17 06/17/24 23:31 Blood Pressure 169/78 H 06/17/24 22:57 Pulse Oximetry 100 06/17/24 23:31 Oxygen Delivery Nasal Cannula 06/17/24 22:50 Oxygen Flow Rate 2 06/17/24 22:50 MDM - Fall MDM Narrative Medical decision making narrative: Patient presents to the emergency department after a fall today with left hip pain. Recently underwent left hip total arthroplasty for osteoarthritis. She did develop a fever in the ER. She does not have any localizing infectious symptoms. She also had mild oxygen saturation dip into the upper 80s after pain medication. Is on 1 L nasal cannula. CBC with leukocytosis to 13. Hemoglobin is up trending. Metabolic panel without concerning findings. Urine without evidence of infection. COVID, influenza and RSV screens are negative. Left hip x-ray shows a fracture of the greater trochanter. patient and family updated on workup and recommendation for admission. Spoke with Dr. Monk who will consult. Recommends admission for rehab consult. spoke with hospitalist about patient and workup who accepts admission Differential Diagnosis Differential diagnosis: Likely other (Hip fracture, contusion, UTI, pneumonia, atelectasis, postop infection, COVID, influenza, RSV) Lab Data Attestation: I reviewed the patient's lab results. 06/17/24 23:20 06/17/24 23:20 Labs: Lab Results 06/17/24 Range/Units 23:20 WBC 13.0 H (4.5-10.0) K/mm3 RBC 3.30 L (4.2-5.4) M/mm3 Hgb 10.6 L (12.0-15.0) g/dL Hct 32.5 L (37.0-47.0) % MCV 98.5 (80-100) fl MCH 32.1 (26-34) pg MCHC 32.6 (32-36) g/dl RDW 12.8 (11.5-14.5) % Plt Count 200 (150-375) k/mm3 MPV 11.4 H (7.4-10.4) fl Immature Gran % (Auto) 0.5 (0-0.5) % Neut % (Auto) 81.5 H (45.5-73.1) % Lymph % (Auto) 8.7 L (18.3-44.2) % [place] % (Auto) 8.5 (2.6-8.5) % Eos % (Auto) 0.3 (0-4.4) % Baso % (Auto) 0.5 (0.2-1.2) % Lymph # (Auto) 1.13 (0.9-3.2) K/mm3 [place] # (Auto) 1.1 H (0.1-0.6) K/mm3 Eos # (Auto) 0.0 (0-0.3) K/mm3 Baso # (Auto) 0.1 (0.0-0.1) K/mm3 Abs Immat Gran (auto) 0.06 H (0.00-0.031) K/mm3 Absolute Neuts (auto) 10.6 H (1.3-6.7) K/mm3 Absolute Nucleated RBC 0.000 (0.0-0.012) K/mm3 Nucleated RBC % 0.0 (0.0-0.2) % Sodium 134 L (137-145) mmol/L Potassium 3.8 (3.4-5.0) mmol/L Chloride 104 (98-107) mmol/L Carbon Dioxide 28 (22-30) mmol/L Anion Gap 2 L (4-12) mmol/L BUN 16 (7-17) mg/dL Creatinine 0.70 (0.7-1.0) mg/dL Estim Creat Clear Calc 40 ml/min Estimated GFR > 60 (59 - ) Glucose 129 H (65-110) mg/dL Calcium 9.1 (8.4-10.2) mg/dL Total Bilirubin 0.8 (0.2-1.3) mg/dL AST 35 (14-36) U/L ALT 18 (6-35) U/L Alkaline Phosphatase 112 (38-126) U/L Total Protein 7.0 (6.3-8.2) g/dL Albumin 3.8 (3.5-5.1) g/dL Urine Color Yellow (Yellow) Urine Appearance Clear (Clear) Urine pH 6.0 (5.0-9.0) Ur Specific [place] 1.020 (1.001-1.035) Urine Protein Negative (Negative) mg/dL Urine Glucose (UA) Negative (Negative) mg/dL Urine Ketones 1+ H (Negative) mg/dL Ur Blood (Man) Negative (Negative) Urine Nitrate Negative (Negative) Urine Bilirubin Negative (Negative) Urine Urobilinogen 0.2 (<2.0) mg/dL Leukocyte Esterase Rfl Negative (Negative) BOY/UL Influenza A (RT-PCR) Negative (Negative) Influenza B (RT-PCR) Negative (Negative) RSV (RT-PCR) Negative (Negative) SARS-CoV-2 RNA (RT-PCR) Negative (Negative) Critical Care Time Critical Care Time Critical Care Time: No Discharge Plan Discharge Clinical Impression: Closed fracture of greater trochanter of left femur, Fever of unknown origin Patient Disposition: Still a Patient Condition: Stable Patient Language: Armenian Prescriptions: No Action vitamin B complex Tablet 1 tablet PO DAILY calcium carbonate-vitamin D3 [Calcium 600 with Vitamin D3] 600 mg-12.5 mcg (500 unit) capsule 1 cap PO DAILY red yeast rice 600 mg tablet 600 mg PO BID Rx Instructions: give with meal/snack ascorbic acid (vitamin C) 1,000 mg capsule 1 g PO DAILY cholecalciferol (vitamin D3) 10 mcg (400 unit) capsule 10 mcg PO DAILY coenzyme Q10 100 mg capsule 100 mg PO DAILY Qty: 1 0RF acetaminophen 325 mg Tablet 650 mg PO Q6HR Qty: 100 0RF sennosides-docusate sodium [Senokot-S] 8.6-50 mg Tablet 2 tab-cap PO BID Qty: 120 0RF celecoxib [Celebrex] 100 mg Capsule 100 mg PO DAILY Qty: 7 0RF cefdinir 300 mg Capsule 300 mg PO Q12HR Qty: 14 0RF Eliquis 2.5 mg Tablet 2.5 mg PO Q12HR Qty: 70 0RF polyethylene glycol 3350 [Miralax] 17 gram Powder In Packet 17 g PO QAM Qty: 30 0RF oxycodone 5 mg tablet 2.5 mg PO Q4H PRN (Reason: pain) Qty: 20 0RF Follow-up/Referrals: Hany Parsons MD [Primary Care Provider] -
[2024-06-17] MEDS: ACETAMINOPHEN 500 MG TABLET 1000 MG PO (23:17)
[2024-06-17 23:31] VITALS: PULSE 96; RESP 17; TEMP 38.3; O2SAT 100
[2024-06-17 23:31] LABS: Basophils Absolute Auto 0.1 K/mm3 (0.0-0.1); Basophils Percent Auto 0.5 % (0.2-1.2); Eosinophils Percent Auto 0.3 % (0-4.4); Hematocrit 32.5 % (37.0-47.0); Hemoglobin 10.6 g/dL (12.0-15.0); Immature Granulocyte Absolute 0.06 K/mm3 (0.00-0.031); Immature Granulocyte Percent A 0.5 % (0-0.5); Lymphocytes Absolute Auto 1.13 K/mm3 (0.9-3.2); Lymphocytes Percent Auto 8.7 % (18.3-44.2); Mean Corpuscular HGB Conc 32.6 g/dl (32-36); Mean Corpuscular Hemoglobin 32.1 pg (26-34); Mean Corpuscular Volume 98.5 fl (80-100); Mean Platelet Volume 11.4 fl (7.4-10.4); Monocytes Absolute Auto 1.1 K/mm3 (0.1-0.6); Monocytes Percent Auto 8.5 % (2.6-8.5); Neutrophils Absolute Auto 10.6 K/mm3 (1.3-6.7); Neutrophils Percent Auto 81.5 % (45.5-73.1); Platelet Count Result 200 k/mm3 (150-375); Red Cell Distribution Width 12.8 % (11.5-14.5)
[2024-06-17 23:32] LABS: Add Urine Microscopic? NO; Appearance Urine Clear (Clear); Bilirubin Urine Negative (Negative); Blood Urine Negative (Negative); Color Urine Yellow (Yellow); Glucose Urine UA Negative (Negative); Ketones Urine 1+ mg/dL (Negative); Leukocyte Esterase Ur Negative LEU/UL (Negative); Nitrate Urine Negative (Negative); Protein Urine Negative (Negative); Urobilinogen Urine 0.2 mg/dL (<2.0)
[2024-06-17 23:36] LABS: Alanine Aminotransferase 18 U/L (6-35); Albumin Level 3.8 g/dL (3.5-5.1); Alkaline Phosphatase 112 U/L (38-126); Anion Gap 2 mmol/L (4-12); Aspartate Amino Transferase 35 U/L (14-36); Bilirubin,Total 0.8 mg/dL (0.2-1.3); Blood Urea Nitrogen 16 mg/dL (7-17); Calcium 9.1 mg/dL (8.4-10.2); Carbon Dioxide 28 mmol/L (22-30); Chloride 104 mmol/L (98-107); Estimated CRCL calculation 40 ml/min; Estimated Glomerular Filt Rate > 60; Glucose 129 mg/dL (65-110); Potassium 3.8 mmol/L (3.4-5.0); Sodium 134 mmol/L (137-145)
[2024-06-18] VITALS (27 sets, daily range): BP systolic 119–168; BP diastolic 57–78; PULSE 70–97; RESP 11–19; TEMP 36.4–38.2; O2SAT 95–100; BMI 25.6
[2024-06-18 00:18] LABS: Influenza A QL RT-PCR Negative (Negative); Influenza B QL RT-PCR Negative (Negative); RSV RNA, RT-PCR Negative (Negative); SARS-CoV-2 RNA PCR Negative (Negative)
--- NOTE | 2024-06-18 04:25 | ADMGEN ---
This patient, Rubi Barnett, was admitted to Medical Room 261-01. Patient/family oriented to hospital policies and general routines including ID bracelet, bed and alarms, visiting hours, pain management, procedures, bathroom and other care routines, personal items, smoking policy, room service/diet, and visiting hours. Information on how to activate the Rapid Response Team has been discussed. Patient/Family are encouraged to report perceived risks to care and to ask questions if they do not understand what they are told or what they should do.
[2024-06-18 05:31] LABS: Basophils Absolute Auto 0.1 K/mm3 (0.0-0.1); Basophils Percent Auto 0.5 % (0.2-1.2); Eosinophils Absolute Auto 0.1 K/mm3 (0-0.3); Hematocrit 30.5 % (37.0-47.0); Hemoglobin 9.9 g/dL (12.0-15.0); Immature Granulocyte Absolute 0.04 K/mm3 (0.00-0.031); Immature Granulocyte Percent A 0.4 % (0-0.5); Lymphocytes Absolute Auto 1.69 K/mm3 (0.9-3.2); Mean Corpuscular HGB Conc 32.5 g/dl (32-36); Mean Corpuscular Hemoglobin 32.6 pg (26-34); Mean Corpuscular Volume 100.3 fl (80-100); Mean Platelet Volume 10.9 fl (7.4-10.4); Monocytes Absolute Auto 1.2 K/mm3 (0.1-0.6); Monocytes Percent Auto 10.5 % (2.6-8.5); Neutrophils Absolute Auto 8.2 K/mm3 (1.3-6.7); Neutrophils Percent Auto 72.6 % (45.5-73.1); Platelet Count Result 179 k/mm3 (150-375); Red Blood Count 3.04 M/mm3 (4.2-5.4); Red Cell Distribution Width 12.8 % (11.5-14.5); White Blood Count 11.3 K/mm3 (4.5-10.0)
[2024-06-18 05:42] LABS: Lactic Acid Reflex 0.7 mmol/L (0.7-2.0)
[2024-06-18 05:43] LABS: Alanine Aminotransferase 15 U/L (6-35); Albumin Level 3.4 g/dL (3.5-5.1); Alkaline Phosphatase 82 U/L (38-126); Anion Gap -3 mmol/L (4-12); Aspartate Amino Transferase 31 U/L (14-36); Bilirubin,Total 0.9 mg/dL (0.2-1.3); Blood Urea Nitrogen 12 mg/dL (7-17); Calcium 8.8 mg/dL (8.4-10.2); Carbon Dioxide 31 mmol/L (22-30); Chloride 106 mmol/L (98-107); Estimated CRCL calculation 46 ml/min; Estimated Glomerular Filt Rate > 60; Glucose 102 mg/dL (65-110); Magnesium 2.2 mg/dL (1.6-2.3); Sodium 134 mmol/L (137-145)
--- NOTE | 2024-06-18 07:49 | P.HP_ITS ---
H&P: HPI History of Present Illness Date/Time: 06/18/24 07:49 Chief Complaint: Fall/LT hip pain Narrative: Patient is an 84-year-old female who presented to the emergency department after a fall at home complaints of left hip pain. Patient had been discharged same day to home following a left total hip arthroplasty. 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 patient stated that the hip pain continued to worsen and she came to the emergency department for evaluation x-ray does show a acute comminuted fracture which was isolated to the left greater trochanter extending to the interface of the underlying hardware and femoral stem component. patient did have mild leukocytosis and became afebrile in the emergency department likely secondary to post surgery and new fracture. CXR showed clear lungs her COVID, flu and RSV negative as well as negative UA. Dr. Monk have been called consulted in the emergency department and patient was admitted to the medical unit for further evaluation treatment with consult to PT /OT. Patient denied any chest pain, shortness a breath, nausea, vomiting, dizziness, loss of consciousness or hitting her head during fall. labs were otherwise insignificant except for hemoglobin at 9.9 which is likely secondary to postop surgery as expected. Review of Systems Review of Systems: All systems reviewed & are unremarkable except as noted in HPI and below PMFSH Past Medical History Medical History (Updated 06/18/24 @ 13:34 by Kirit Monk MD) Colon cancer screening Bipolar 1 disorder History of chicken pox Surgical History Surgical History (Updated 06/18/24 @ 07:55 by Venus Kinney APRN) S/P total left hip arthroplasty History of colonoscopy History of appendectomy History of ankle surgery H/O hand surgery Family History Family History Sibling Asthma Mother Depression Heart disease Grandparent Alcoholism Social History Social History Smoking status: Never smoker Second hand tobacco smoke exposure: No Additional smoking assessment comments: Denies any nicotine use Alcohol intake: current Drinks per week: 7 Alcohol use details: a glass of wine at lunch everyday per patient Substance use: current Substance use type: marijuana Other substance usage details: EDIBLES FOR SLEEP OCCAS. 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 Gender identity (if verbalized by the patient): Female Spiritual care concerns: No (UATSDIN) Meds Home Medications and Allergies Home Medications ?Medication ?Instructions ?Recorded ?Confirmed ?Type coenzyme Q10 100 mg capsule 100 mg PO DAILY #1 cap 11/06/22 06/18/24 Rx calcium 600 mg (as 1 cap PO DAILY 11/12/23 06/18/24 History carbonate)-vitamin D3 12.5 mcg (500 unit) capsule (Calcium with Vit D3) red yeast rice 600 mg tablet 600 mg PO BID 11/12/23 06/18/24 History vitamin B complex 1 tablet PO DAILY 11/12/23 06/18/24 History ascorbic acid (vitamin C) 1,000 mg 1 g PO DAILY 05/27/24 06/18/24 History capsule cholecalciferol (vitamin D3) 10 10 mcg PO DAILY 05/27/24 06/18/24 History mcg (400 unit) capsule acetaminophen 325 mg tablet 650 mg (2 x 325 mg) PO Q6HR #100 06/17/24 06/18/24 Rx tabs apixaban 2.5 mg tablet (Eliquis) 2.5 mg PO Q12HR #70 tabs 06/17/24 06/18/24 Rx cefdinir 300 mg capsule 300 mg PO Q12HR #14 caps 06/17/24 06/18/24 Rx celecoxib 100 mg capsule (Celebrex) 100 mg PO DAILY #7 caps 06/17/24 06/18/24 Rx oxycodone 5 mg tablet 2.5 mg (1/2 x 5 mg) PO Q4H PRN 06/17/24 06/18/24 Rx pain #20 tabs polyethylene glycol 3350 17 gram 17 g PO QAM #30 ea 06/17/24 06/18/24 Rx oral powder packet (Miralax) sennosides 8.6 mg-docusate sodium 2 tab-cap (2 x 8.6-50 mg) PO BID 06/17/24 06/18/24 Rx 50 mg tablet (Senokot-S) #120 tabs Allergies Allergy/AdvReac Type Severity Reaction Status Date / Time ragweed pollen Allergy Mild Unknown Verified 06/17/24 21:56 codeine AdvReac Fainting Verified 06/17/24 21:56 Vital Signs Vital Signs - 24 hr 06/17/24 21:48 06/17/24 22:50 06/17/24 22:57 Temperature 98.4 F 100.4 F H Pulse Rate 90 98 Respiratory Rate 18 15 Blood Pressure 158/46 H 169/78 H Pulse Oximetry 98 87 L 94 Oxygen Delivery Room Air Nasal Cannula Oxygen Flow Rate 2 06/17/24 22:59 06/17/24 23:31 06/18/24 00:01 Temperature 101.0 F H 100.9 F H 100.7 F H Pulse Rate 95 96 90 Respiratory Rate 15 17 14 Blood Pressure Pulse Oximetry 90 100 98 Oxygen Delivery Oxygen Flow Rate 06/18/24 00:15 06/18/24 01:43 06/18/24 01:45 Temperature 100.5 F H 99.7 F H 99.6 F Pulse Rate 93 84 78 Respiratory Rate 14 14 13 Blood Pressure 135/73 133/57 L Pulse Oximetry 97 96 95 Oxygen Delivery Oxygen Flow Rate 06/18/24 01:46 06/18/24 02:00 06/18/24 02:01 Temperature 99.7 F H 99.5 F 99.5 F Pulse Rate 86 80 81 Respiratory Rate 15 13 11 L Blood Pressure 138/64 Pulse Oximetry 96 96 97 Oxygen Delivery Oxygen Flow Rate 06/18/24 02:16 06/18/24 02:44 06/18/24 02:45 Temperature 99.5 F 99.4 F 99.4 F Pulse Rate 77 81 82 Respiratory Rate 19 17 15 Blood Pressure 119/65 Pulse Oximetry 97 97 97 Oxygen Delivery Oxygen Flow Rate 06/18/24 02:46 06/18/24 03:00 06/18/24 03:01 Temperature 99.4 F 99.4 F 99.4 F Pulse Rate 79 76 75 Respiratory Rate 15 13 14 Blood Pressure 120/64 Pulse Oximetry 97 97 97 Oxygen Delivery Oxygen Flow Rate 06/18/24 03:15 06/18/24 03:16 06/18/24 03:30 Temperature 99.4 F 99.4 F 99.5 F Pulse Rate 74 76 74 Respiratory Rate 13 14 14 Blood Pressure 125/64 120/64 Pulse Oximetry 98 98 98 Oxygen Delivery Oxygen Flow Rate 06/18/24 03:31 06/18/24 03:45 06/18/24 03:47 Temperature 99.5 F 99.4 F 99.5 F Pulse Rate 76 77 76 Respiratory Rate 17 12 15 Blood Pressure 127/72 Pulse Oximetry 98 97 98 Oxygen Delivery Oxygen Flow Rate 06/18/24 03:56 06/18/24 04:00 06/18/24 06:00 Temperature 99.0 F 98.1 F 97.6 F Pulse Rate 97 83 78 Respiratory Rate 17 16 16 Blood Pressure 127/72 139/58 L 168/77 H Pulse Oximetry 98 96 100 Oxygen Delivery Oxygen Flow Rate Exam Narrative: * GENERAL: Alert and oriented x 3. No acute distress. * EYES: EOMI. No scleral icterus. PERRLA. * HEENT: Moist mucous membranes. * LUNGS: Clear to auscultation bilaterally. No accessory muscle use. * CARDIOVASCULAR: Regular rate and rhythm. No murmur. No JVD. S1-S2 * ABDOMEN: Soft, non tenderness and non-distended. No palpable masses. * EXTREMITIES: LLE pain with movement, decreased ROM * SKIN: No rashes or lesions. Skin warm, dry. postop incisional site LT upper thigh no signs infection no erythema or swelling * NEUROLOGIC: No focal neurological deficits. CN II-XII grossly intact * PSYCHIATRIC: Appropriate mood and affect. Good judgement and insight. No visual or auditory hallucinations. No suicidal or homicidal ideation. H&P: Results Labs Labs: Short CBC 06/17/24 06/18/24 Range/Units 23:20 05:04 WBC 13.0 H 11.3 H (4.5-10.0) K/mm3 Hgb 10.6 L 9.9 L (12.0-15.0) g/dL Hct 32.5 L 30.5 L (37.0-47.0) % Plt Count 200 179 (150-375) k/mm3 [facility] 06/17/24 06/18/24 23:20 05:04 Sodium 134 L 134 L Potassium 3.8 4.0 Chloride 104 106 Carbon Dioxide 28 31 H BUN 16 12 Creatinine 0.70 0.60 L Glucose 129 H 102 Calcium 9.1 8.8 Liver Function 06/17/24 06/18/24 Range/Units 23:20 05:04 Total Bilirubin 0.8 0.9 (0.2-1.3) mg/dL AST 35 31 (14-36) U/L ALT 18 15 (6-35) U/L Alkaline Phosphatase 112 82 (38-126) U/L Albumin 3.8 3.4 L (3.5-5.1) g/dL Urine 06/17/24 Range/Units 23:20 Urine Color Yellow (Yellow) Urine Appearance Clear (Clear) Urine pH 6.0 (5.0-9.0) Ur Specific [place] 1.020 (1.001-1.035) Urine Protein Negative (Negative) mg/dL Urine Glucose (UA) Negative (Negative) mg/dL Assessment and Plan Assessment and plan (1) Closed fracture of greater trochanter of left femur: Qualifiers: Encounter type: initial encounter Fracture alignment: displaced Qualified Code(s): S72.112A - Displaced fracture of greater trochanter of left femur, initial encounter for closed fracture Code(s): S72.112A - Displaced fracture of greater trochanter of left femur, initial encounter for closed fracture Status: Acute Assessment and Plan: patient was postop day 1 of total left hip arthroplasty had fall at home and landed on left hip with new displaced fracture of the greater trochanter * Dr. Monk with ortho consulted * pain control * resume patient's Eliquis for DVT prophylaxis * SCDs * PT/OT for evaluation and recommendations * ice pack to affected sites * weight-bearing status per Orthopedics (2) S/P total left hip arthroplasty: Code(s): Z96.642 - Presence of left artificial hip joint Status: Acute Assessment and Plan: SEE ABOVE (3) Fever of unknown origin: Code(s): R50.9 - Fever, unspecified Status: Acute Assessment and Plan: patient with fever in the emergency department peaked at 101.0, likely secondary postop new fracture resolved with acetaminophen * CXR with clear lung [place] * UA negative * COVID/FLU/RSV negative * blood cultures pending * antipyretics * monitor for signs of infection surgical site (4) Anemia: Code(s): D64.9 - Anemia, unspecified Status: Acute Assessment and Plan: * Hgb 9.9 POA * likely secondary to postop blood loss * Trend and transfuse PRBC ig HGB <7.0 * continue to monitor incisional site and fracture for hematoma Plan Code status: Full code per patient DVT prophylaxis: Eliquis Stress ulcer prophylaxis: BREEZY PT/OT notes: PT/OT pending Disposition: patient was admitted to the medical unit for further evaluation and treatment of left hip fracture after fall postop 1 day from total left arthroplasty. Orthopedics has been consulted for further recommendations as well as PT/OT. care coordination to be consulted for further assistance patient may need rehab placement. Quality VTE Prophylaxis VTE prophylaxis: mechanical ordered and pharmacologic ordered -Patient's previous records reviewed on admission -ER notes reviewed in detail on admission -discussed all findings and current treatment plan with patient/Family/POA -Consultations reviewed for recommendations -Patient's disposition for safe discharge discussed with adult protective caseworker Dictation performed by [employer] direct speech recognition software, therefore superintendent warehouse variants and typographical errors may occur. Hospitalist MIPS Advance Care Plan I have confirmed that the patient's Advanced Care Plan is present, code status is documented, or surrogate decision maker is listed in patient medical record.: Yes Medication Reconciliation I have utilized all available resources to obtain, update and review the patients current medications (includes all prescriptions, OTC, herbals, cannabis, and nutritional supplements).: Yes The patient is not eligible for med reconciliation; the patient is in a emergent medical situation where delaying treatment would jeopardize the patients health.: No
[2024-06-18] MEDS: SENNA/DOCUSATE SODIUM TABLET 2 TAB PO ×2 (09:20→17:52)
[2024-06-18] MEDS: CALCIUM/VITAMIN D 500 MG/5 MCG (200 I.U.) TABLET PO (09:20)
[2024-06-18] MEDS: CELECOXIB 100 MG CAPSULE PO (09:21)
[2024-06-18] MEDS: CEFDINIR 300 MG CAPSULE PO ×2 (09:21→20:55)
[2024-06-18] MEDS: CHOLECALCIFEROL 400 UNITS TABLET (VIT D) PO (09:21)
[2024-06-18] MEDS: VITAMIN B COMPLEX CAPSULE 1 CAP PO (09:21)
[2024-06-18] MEDS: polyethylene glycoL 3350 17 GM POWD.PACK PO (09:22)
[2024-06-18] MEDS: ASCORBIC ACID 500 MG TABLET PO (09:31)
[2024-06-18] MEDS: APIXABAN 2.5 MG TABLET PO ×2 (12:05→20:55)
[2024-06-18] MEDS: ACETAMINOPHEN 325 MG TABLET 650 MG PO ×3 (12:05→23:51)
--- NOTE | 2024-06-18 13:32 | P.CONOP_ITS ---
Assessment and Plan Assessment and plan (1) Fracture of greater trochanter of left femur: Qualifiers: Encounter type: initial encounter Fracture type: closed Fracture alignment: displaced Qualified Code(s): S72.112A - Displaced fracture of greater trochanter of left femur, initial encounter for closed fracture Code(s): S72.112A - Displaced fracture of greater trochanter of left femur, initial encounter for closed fracture Status: Acute Assessment and Plan: Patient is an 84-year-old female who underwent left total hip arthroplasty in 06/16/2024. After surgery she was up walking in her room that afternoon and did very well yesterday with physical therapy and was deemed to be independent and discharged home. Physical therapy assessed her as not qualifying for any rehabilitation as she was independent already. Late last night she went to her freezer to get out some food and the food dropped to the floor and patient bent over to strip picker the food and fell onto her left hip. She was unable to get up brought to the emergency room where she was noted to have a mildly displaced comminuted fracture of the greater trochanter. I do not see evidence of fracture extending around the stem and there is no evidence of fracture around the acetabulum or any change in position of the implants. Is somewhat ironic that the patient specifically asked me yesterday it was safe for her to reach down to the floor pick something up and I advised her that that would not be safe till she is off the walker which would be 4-6 weeks. Her laboratory studies today show her hemoglobin stable at 9.9. Was 9.8 yesterday. Chem panel otherwise unremarkable except for albumin 3.4 and total protein of 6.0 both minimally diminished and sodium 134. Assessment and plan Patient appears to have a mildly displaced somewhat comminuted left greater trochanter fracture from a fall onto her left hip. This pattern of fracture has a good prognosis in most cases and is treated nonsurgically with protected weight-bearing. I advised her that she should at max 50% weight-bearing on the left hip the next 6 weeks to allow for appropriate healing. If we find that she cannot tolerate being immobilized, we will have to order further imaging of the proximal femur to see if there is fracture line extending distal to the greater trochanter but the plain x-rays do not suggest currently. If she tolerates 50% weight-bearing comfortably in the hand can be fairly confident that there is no additional fracture. I have reordered her medications she was discharged home on the Eliquis, low- dose Celebrex for heterotopic ossification prophylaxis for total of 7 days, medication to prevent constipation and the 2.5 mg oxycodone p.r.n. and Tylenol for pain. (2) S/P total left hip arthroplasty: Code(s): Z96.642 - Presence of left artificial hip joint Status: Acute History of Present Illness HPI Consult date: 06/18/24 Chief complaint: Left greater trochanter fracture [facility] Past Medical History Medical History (Updated 06/18/24 @ 13:34 by Kirit Monk MD) Colon cancer screening Bipolar 1 disorder History of chicken pox Surgical History Surgical History (Updated 06/18/24 @ 07:55 by Venus Kinney APRN) S/P total left hip arthroplasty History of colonoscopy History of appendectomy History of ankle surgery H/O hand surgery Family History Family History Sibling Asthma Mother Depression Heart disease Grandparent Alcoholism Social History Social History Smoking status: Never smoker Second hand tobacco smoke exposure: No Additional smoking assessment comments: Denies any nicotine use Alcohol intake: current Drinks per week: 7 Alcohol use details: a glass of wine at lunch everyday per patient Substance use: current Substance use type: marijuana Other substance usage details: EDIBLES FOR SLEEP OCCAS. 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 Gender identity (if verbalized by the patient): Female Spiritual care concerns: No (ZOROASTRIAN) Meds Home Medications and Allergies Home Medications ?Medication ?Instructions ?Recorded ?Confirmed ?Type coenzyme Q10 100 mg capsule 100 mg PO DAILY #1 cap 11/06/22 06/18/24 Rx calcium 600 mg (as 1 cap PO DAILY 11/12/23 06/18/24 History carbonate)-vitamin D3 12.5 mcg (500 unit) capsule (Calcium with Vit D3) red yeast rice 600 mg tablet 600 mg PO BID 11/12/23 06/18/24 History vitamin B complex 1 tablet PO DAILY 11/12/23 06/18/24 History ascorbic acid (vitamin C) 1,000 mg 1 g PO DAILY 05/27/24 06/18/24 History capsule cholecalciferol (vitamin D3) 10 10 mcg PO DAILY 05/27/24 06/18/24 History mcg (400 unit) capsule acetaminophen 325 mg tablet 650 mg (2 x 325 mg) PO Q6HR #100 06/17/24 06/18/24 Rx tabs apixaban 2.5 mg tablet (Eliquis) 2.5 mg PO Q12HR #70 tabs 06/17/24 06/18/24 Rx cefdinir 300 mg capsule 300 mg PO Q12HR #14 caps 06/17/24 06/18/24 Rx celecoxib 100 mg capsule (Celebrex) 100 mg PO DAILY #7 caps 06/17/24 06/18/24 Rx oxycodone 5 mg tablet 2.5 mg (1/2 x 5 mg) PO Q4H PRN 06/17/24 06/18/24 Rx pain #20 tabs polyethylene glycol 3350 17 gram 17 g PO QAM #30 ea 06/17/24 06/18/24 Rx oral powder packet (Miralax) sennosides 8.6 mg-docusate sodium 2 tab-cap (2 x 8.6-50 mg) PO BID 06/17/24 06/18/24 Rx 50 mg tablet (Senokot-S) #120 tabs Allergies Allergy/AdvReac Type Severity Reaction Status Date / Time ragweed pollen Allergy Mild Unknown Verified 06/17/24 21:56 codeine AdvReac Fainting Verified 06/17/24 21:56 Vital Signs Vital Signs - 24 hr 06/17/24 21:48 06/17/24 22:50 06/17/24 22:57 Temperature 36.9 C 38.0 C H Pulse Rate 90 98 Respiratory Rate 18 15 Blood Pressure 158/46 H 169/78 H Pulse Oximetry 98 87 L 94 Oxygen Delivery Room Air Nasal Cannula Oxygen Flow Rate 2 06/17/24 22:59 06/17/24 23:31 06/18/24 00:01 Temperature 38.3 C H 38.3 C H 38.2 C H Pulse Rate 95 96 90 Respiratory Rate 15 17 14 Blood Pressure Pulse Oximetry 90 100 98 Oxygen Delivery Oxygen Flow Rate 06/18/24 00:15 06/18/24 01:43 06/18/24 01:45 Temperature 38.1 C H 37.6 C H 37.6 C Pulse Rate 93 84 78 Respiratory Rate 14 14 13 Blood Pressure 135/73 133/57 L Pulse Oximetry 97 96 95 Oxygen Delivery Oxygen Flow Rate 06/18/24 01:46 06/18/24 02:00 06/18/24 02:01 Temperature 37.6 C H 37.5 C 37.5 C Pulse Rate 86 80 81 Respiratory Rate 15 13 11 L Blood Pressure 138/64 Pulse Oximetry 96 96 97 Oxygen Delivery Oxygen Flow Rate 06/18/24 02:16 06/18/24 02:44 06/18/24 02:45 Temperature 37.5 C 37.4 C 37.4 C Pulse Rate 77 81 82 Respiratory Rate 19 17 15 Blood Pressure 119/65 Pulse Oximetry 97 97 97 Oxygen Delivery Oxygen Flow Rate 06/18/24 02:46 06/18/24 03:00 06/18/24 03:01 Temperature 37.4 C 37.4 C 37.4 C Pulse Rate 79 76 75 Respiratory Rate 15 13 14 Blood Pressure 120/64 Pulse Oximetry 97 97 97 Oxygen Delivery Oxygen Flow Rate 06/18/24 03:15 06/18/24 03:16 06/18/24 03:30 Temperature 37.4 C 37.4 C 37.5 C Pulse Rate 74 76 74 Respiratory Rate 13 14 14 Blood Pressure 125/64 120/64 Pulse Oximetry 98 98 98 Oxygen Delivery Oxygen Flow Rate 06/18/24 03:31 06/18/24 03:45 06/18/24 03:47 Temperature 37.5 C 37.4 C 37.5 C Pulse Rate 76 77 76 Respiratory Rate 17 12 15 Blood Pressure 127/72 Pulse Oximetry 98 97 98 Oxygen Delivery Oxygen Flow Rate 06/18/24 03:56 06/18/24 04:00 06/18/24 06:00 Temperature 37.2 C 36.7 C 36.4 C Pulse Rate 97 83 78 Respiratory Rate 17 16 16 Blood Pressure 127/72 139/58 L 168/77 H Pulse Oximetry 98 96 100 Oxygen Delivery Oxygen Flow Rate 06/18/24 08:00 06/18/24 09:20 06/18/24 12:00 Temperature 36.6 C 36.7 C Pulse Rate 86 85 Respiratory Rate 14 14 Blood Pressure 168/78 H 122/62 Pulse Oximetry 99 97 Oxygen Delivery Room Air Oxygen Flow Rate Results Labs 06/18/24 05:04 06/18/24 05:04 Labs: Abnormal lab results 06/17/24 06/18/24 Range/Units 23:20 05:04 WBC 13.0 H 11.3 H (4.5-10.0) K/mm3 RBC 3.30 L 3.04 L (4.2-5.4) M/mm3 Hgb 10.6 L 9.9 L (12.0-15.0) g/dL Hct 32.5 L 30.5 L (37.0-47.0) % MCV 100.3 H (80-100) fl MPV 11.4 H 10.9 H (7.4-10.4) fl Neut % (Auto) 81.5 H (45.5-73.1) % Lymph % (Auto) 8.7 L 15.0 L (18.3-44.2) % [place] % (Auto) 10.5 H (2.6-8.5) % [place] # (Auto) 1.1 H 1.2 H (0.1-0.6) K/mm3 Abs Immat Gran (auto) 0.06 H 0.04 H (0.00-0.031) K/mm3 Absolute Neuts (auto) 10.6 H 8.2 H (1.3-6.7) K/mm3 Sodium 134 L 134 L (137-145) mmol/L Carbon Dioxide 31 H (22-30) mmol/L Anion Gap 2 L -3 L (4-12) mmol/L Creatinine 0.60 L (0.7-1.0) mg/dL Glucose 129 H (65-110) mg/dL Total Protein 6.0 L (6.3-8.2) g/dL Albumin 3.4 L (3.5-5.1) g/dL Urine Ketones 1+ H (Negative) mg/dL H & H 06/17/24 06/18/24 Range/Units 23:20 05:04 Hgb 10.6 L 9.9 L (12.0-15.0) g/dL Hct 32.5 L 30.5 L (37.0-47.0) % All other labs normal.
[2024-06-19] VITALS (7 sets, daily range): BP systolic 91–157; BP diastolic 58–67; PULSE 77–82; RESP 16–24; TEMP 36.5–36.8; O2SAT 93–100
[2024-06-19 06:16] LABS: Basophils Absolute Auto 0.1 K/mm3 (0.0-0.1); Basophils Percent Auto 0.6 % (0.2-1.2); Eosinophils Absolute Auto 0.3 K/mm3 (0-0.3); Eosinophils Percent Auto 2.8 % (0-4.4); Hematocrit 30.5 % (37.0-47.0); Immature Granulocyte Absolute 0.04 K/mm3 (0.00-0.031); Immature Granulocyte Percent A 0.4 % (0-0.5); Lymphocytes Absolute Auto 1.15 K/mm3 (0.9-3.2); Lymphocytes Percent Auto 10.7 % (18.3-44.2); Mean Corpuscular HGB Conc 32.8 g/dl (32-36); Mean Corpuscular Hemoglobin 32.5 pg (26-34); Mean Platelet Volume 10.9 fl (7.4-10.4); Monocytes Absolute Auto 0.9 K/mm3 (0.1-0.6); Monocytes Percent Auto 8.2 % (2.6-8.5); Neutrophils Absolute Auto 8.3 K/mm3 (1.3-6.7); Neutrophils Percent Auto 77.3 % (45.5-73.1); Platelet Count Result 179 k/mm3 (150-375); Red Blood Count 3.08 M/mm3 (4.2-5.4); Red Cell Distribution Width 12.6 % (11.5-14.5); White Blood Count 10.7 K/mm3 (4.5-10.0)
[2024-06-19] MEDS: ACETAMINOPHEN 325 MG TABLET 650 MG PO ×3 (06:17→17:17)
[2024-06-19 06:23] LABS: Alanine Aminotransferase 15 U/L (6-35); Albumin Level 3.3 g/dL (3.5-5.1); Alkaline Phosphatase 89 U/L (38-126); Anion Gap 2 mmol/L (4-12); Aspartate Amino Transferase 25 U/L (14-36); Bilirubin,Total 0.8 mg/dL (0.2-1.3); Blood Urea Nitrogen 10 mg/dL (7-17); Calcium 8.7 mg/dL (8.4-10.2); Carbon Dioxide 28 mmol/L (22-30); Chloride 106 mmol/L (98-107); Estimated CRCL calculation 55 ml/min; Estimated Glomerular Filt Rate > 60; Glucose 105 mg/dL (65-110); Magnesium 2.1 mg/dL (1.6-2.3); Potassium 3.7 mmol/L (3.4-5.0); Sodium 136 mmol/L (137-145)
--- NOTE | 2024-06-19 07:07 | P.PNOP_ITS ---
Subjective Subjective Date/Time Seen: 06/19/24 07:07 Interval history: Hospital day 2, patient is alert. She was up with therapy yesterday and was able to tolerate 50% weight-bearing. She had no increased pain. She states that getting out of bed is more uncomfortable than ambulating. She has no rest pain. Overall pain is mild. Care coordination has been consulted. Patient is going to be partial weight-bearing for at least 6 weeks to allow the fracture to heal. The fact she has have no increased pain with weight-bearing and tolerating it is less likely that there is additional fractures to the femoral shaft. Patient can be transferred as soon as they all able to find a facility for her. Objective Data Vital Signs Vital Signs: Vital Signs - 24 hr 06/18/24 08:00 06/18/24 09:20 06/18/24 12:00 Temperature 97.9 F 98.1 F Pulse Rate 86 85 Respiratory Rate 14 14 Blood Pressure 168/78 H 122/62 Pulse Oximetry 99 97 Oxygen Delivery Room Air Oxygen Flow Rate 06/18/24 16:00 06/18/24 16:13 06/18/24 16:50 Temperature Pulse Rate 78 Respiratory Rate 14 Blood Pressure 124/69 Pulse Oximetry 100 Oxygen Delivery Nasal Cannula Nasal Cannula Oxygen Flow Rate 1 1 06/18/24 20:00 06/18/24 22:00 06/19/24 00:00 Temperature 97.8 F 97.8 F 97.8 F Pulse Rate 70 80 80 Respiratory Rate 16 16 16 Blood Pressure 125/60 146/67 H 146/67 H Pulse Oximetry 98 97 97 Oxygen Delivery Oxygen Flow Rate 06/19/24 06:00 Temperature 97.9 F Pulse Rate 77 Respiratory Rate 16 Blood Pressure 141/58 H Pulse Oximetry 93 Oxygen Delivery Oxygen Flow Rate Intake/Output Intake/Output: Intake & Output 06/16/24 06/17/24 06/18/24 06/19/24 23:59 23:59 23:59 23:59 Intake Total 1730 800 Output Total 1600 1200 Balance 130 -400 Meds/Results Medications: Active Medications Generic Name Dose Route Start Last Admin Trade Name Freq PRN Reason Stop Dose Admin Acetaminophen 650 mg 06/18/24 12:00 06/19/24 06:17 Acetaminophen 325 Mg Tablet PO 650 mg Q6HR JOVANA Administration Hydrocodone Bitart/Acetaminophen 1 tab 06/18/24 14:32 Hydrocodone/Acetaminophen (*Crx) 5-325 Mg Tablet PO Q4H PRN Pain Rated 4-6 Apixaban 2.5 mg 06/18/24 11:55 06/18/24 20:55 Apixaban 2.5 Mg Tablet PO 2.5 mg Q12HR JOVANA Administration Ascorbic Acid 500 mg 06/18/24 09:00 06/18/24 09:31 Ascorbic Acid 500 Mg Tablet PO 500 mg QAM JOVANA Administration Calcium Carbonate 500 mg 06/18/24 09:00 06/18/24 09:20 Calcium/Vitamin D 500 Mg/5 Mcg (200 I.U.) Tablet PO 500 mg QAM JOVANA Administration Cefdinir 300 mg 06/18/24 09:00 06/18/24 20:55 Cefdinir 300 Mg Capsule PO 300 mg Q12HR JOVANA Administration Celecoxib 100 mg 06/18/24 09:00 06/18/24 09:21 Celecoxib 100 Mg Capsule PO 100 mg DAILY JOVANA Administration Ondansetron HCl 4 mg 06/18/24 02:05 Ondansetron Inj 4 Mg/2 Ml Vial IV PUSH Q4H PRN Nausea Polyethylene Glycol 17 gm 06/18/24 09:00 06/18/24 09:22 Polyethylene Glycol 3350 17 Gm Powd.Pack PO 17 gm QAM [facility] Administration Senna/Docusate Sodium 2 tab 06/18/24 09:00 06/18/24 17:52 Senna/Docusate Sodium Tablet PO 2 tab BID JOVANA Administration Vitamin B Complex 1 cap 06/18/24 09:00 06/18/24 09:21 Vitamin B Complex Capsule PO 1 cap DAILY JOVANA Administration Vitamin D 400 units 06/18/24 09:00 06/18/24 09:21 Cholecalciferol 400 Units Tablet (Vit D) PO 400 units QAM JOVANA Administration Radiology Results: ITS Impressions Hip/Pelvis X-Ray 06/18/24 05:16 Impression: Acute comminuted fracture which appears to be isolated to the left greater trochanter, extending to the interface of the underlying hardware/femoral stem component. Chest X-Ray 06/18/24 05:22 Impression: Clear lungs. Probable COPD. Labs Labs: Laboratory Results - last 24 hr 06/19/24 05:42 WBC 10.7 H RBC 3.08 L Hgb 10.0 L Hct 30.5 L MCV 99.0 MCH 32.5 MCHC 32.8 RDW 12.6 Plt Count 179 MPV 10.9 H Immature Gran % (Auto) 0.4 Neut % (Auto) 77.3 H Lymph % (Auto) 10.7 L [place] % (Auto) 8.2 Eos % (Auto) 2.8 Baso % (Auto) 0.6 Lymph # (Auto) 1.15 [place] # (Auto) 0.9 H Eos # (Auto) 0.3 Baso # (Auto) 0.1 Abs Immat Gran (auto) 0.04 H Absolute Neuts (auto) 8.3 H Absolute Nucleated RBC 0.000 Nucleated RBC % 0.0 Sodium 136 L Potassium 3.7 Chloride 106 Carbon Dioxide 28 Anion Gap 2 L BUN 10 Creatinine 0.50 L Estim Creat Clear Calc 55 Estimated GFR > 60 Glucose 105 Calcium 8.7 Magnesium 2.1 Total Bilirubin 0.8 AST 25 ALT 15 Alkaline Phosphatase 89 Total Protein 6.0 L Albumin 3.3 L
[2024-06-19] MEDS: CHOLECALCIFEROL 400 UNITS TABLET (VIT D) PO (08:49)
[2024-06-19] MEDS: CEFDINIR 300 MG CAPSULE PO ×2 (08:50→20:56)
[2024-06-19] MEDS: SENNA/DOCUSATE SODIUM TABLET 2 TAB PO ×2 (08:50→17:17)
[2024-06-19] MEDS: CALCIUM/VITAMIN D 500 MG/5 MCG (200 I.U.) TABLET PO (08:50)
[2024-06-19] MEDS: ASCORBIC ACID 500 MG TABLET PO (08:50)
[2024-06-19] MEDS: VITAMIN B COMPLEX CAPSULE 1 CAP PO (08:51)
[2024-06-19] MEDS: CELECOXIB 100 MG CAPSULE PO (08:51)
[2024-06-19] MEDS: APIXABAN 2.5 MG TABLET PO ×2 (08:52→20:56)
[2024-06-19] MEDS: HYDROcodone/acetaminophen (*CRX) 5-325 MG TABLET 1 TAB PO (08:55)
--- NOTE | 2024-06-19 09:43 | P.PNIM_ITS ---
Progress Note: A&P Assessment and Plan (1) Closed fracture of greater trochanter of left femur: Qualifiers: Encounter type: initial encounter Fracture alignment: displaced Qualified Code(s): S72.112A - Displaced fracture of greater trochanter of left femur, initial encounter for closed fracture Code(s): S72.112A - Displaced fracture of greater trochanter of left femur, initial encounter for closed fracture Status: Acute Assessment and Plan: patient was postop day 1 of total left hip arthroplasty had fall at home and landed on left hip with new displaced fracture of the greater trochanter * Dr. Monk with ortho consulted * pain control * resume patient's Eliquis for DVT prophylaxis * SCDs * PT/OT for evaluation and recommendations * ice pack to affected sites * weight-bearing status per Orthopedics 06/18/24: * 50% weight bearing * continue with pain management * waiting on placement to rehab (2) S/P total left hip arthroplasty: Code(s): Z96.642 - Presence of left artificial hip joint Status: Acute Assessment and Plan: SEE ABOVE (3) Fever of unknown origin: Code(s): R50.9 - Fever, unspecified Status: Acute Assessment and Plan: patient with fever in the emergency department peaked at 101.0, likely secondary postop new fracture resolved with acetaminophen * CXR with clear lung [place] * UA negative * COVID/FLU/RSV negative * blood cultures pending * antipyretics * monitor for signs of infection surgical site 06/19/24: * has remained afebrile (4) Anemia: Code(s): D64.9 - Anemia, unspecified Status: Acute Assessment and Plan: * Hgb 9.9 POA * likely secondary to postop blood loss * Trend and transfuse PRBC ig HGB <7.0 * continue to monitor incisional site and fracture for hematoma IMPROVING Plan Code status: Full code per patient DVT prophylaxis: Eliquis Stress ulcer prophylaxis: NA PT/OT notes: PT/OT pending Disposition: patient was admitted to the medical unit for further evaluation and treatment of left hip fracture after fall postop 1 day from total left arthroplasty. Waiting on rehab placement Time Spent With Patient Time with patient: 15 - 25 minutes Subjective Date/time seen: 06/19/24 09:43 Interval history: Patient is an 84-year-old female who was admitted to the medical unit after post left hip arthroplasty when she fell at home day of discharge and returned with left hip fracture. no surgical intervention at this time currently looking for rehab facility. 06/19/2023: Patient up in chair with no complaints working with PT, Labs reviewed and vitals stable. Hgb improved 10.0. Review of Systems Review of Systems: All systems reviewed & are unremarkable except as noted in HPI and below Exam Narrative: * GENERAL: Alert and oriented x 3. No acute distress. * EYES: EOMI. No scleral icterus. PERRLA. * HEENT: Moist mucous membranes. * LUNGS: Clear to auscultation bilaterally. No accessory muscle use. * CARDIOVASCULAR: Regular rate and rhythm. No murmur. No JVD. S1-S2 * ABDOMEN: Soft, non tenderness and non-distended. No palpable masses. * EXTREMITIES: LLE pain with movement, decreased ROM * SKIN: No rashes or lesions. Skin warm, dry. postop incisional site LT upper thigh no signs infection no erythema or swelling * NEUROLOGIC: No focal neurological deficits. CN II-XII grossly intact * PSYCHIATRIC: Appropriate mood and affect. Good judgement and insight. No visual or auditory hallucinations. No suicidal or homicidal ideation. Objective Data Vital Signs Vital Signs: Vital Signs - 24 hr 06/18/24 12:00 06/18/24 16:00 06/18/24 16:13 Temperature 98.1 F Pulse Rate 85 78 Respiratory Rate 14 14 Blood Pressure 122/62 124/69 Pulse Oximetry 97 100 Oxygen Delivery Nasal Cannula Oxygen Flow Rate 1 06/18/24 16:50 06/18/24 20:00 06/18/24 22:00 Temperature 97.8 F 97.8 F Pulse Rate 70 80 Respiratory Rate 16 16 Blood Pressure 125/60 146/67 H Pulse Oximetry 98 97 Oxygen Delivery Nasal Cannula Oxygen Flow Rate 1 06/19/24 00:00 06/19/24 06:00 06/19/24 08:00 Temperature 97.8 F 97.9 F 97.7 F Pulse Rate 80 77 79 Respiratory Rate 16 16 24 H Blood Pressure 146/67 H 141/58 H 120/64 Pulse Oximetry 97 93 97 Oxygen Delivery Oxygen Flow Rate 06/19/24 08:50 Temperature Pulse Rate Respiratory Rate Blood Pressure Pulse Oximetry Oxygen Delivery Room Air Oxygen Flow Rate Intake/Output Intake/Output: Intake & Output 06/16/24 06/17/24 06/18/24 06/19/24 23:59 23:59 23:59 23:59 Intake Total 1730 800 Output Total 1600 1200 Balance 130 -400 Meds/Results Medications: Active Medications Generic Name Dose Route Start Last Admin Trade Name Freq PRN Reason Stop Dose Admin Acetaminophen 650 mg 06/18/24 12:00 06/19/24 06:17 Acetaminophen 325 Mg Tablet PO 650 mg Q6HR JOVANA Administration Hydrocodone Bitart/Acetaminophen 1 tab 06/18/24 14:32 06/19/24 08:55 Hydrocodone/Acetaminophen (*Crx) 5-325 Mg Tablet PO 1 tab Q4H PRN Administration Pain Rated 4-6 Apixaban 2.5 mg 06/18/24 11:55 06/19/24 08:52 Apixaban 2.5 Mg Tablet PO 2.5 mg Q12HR JOVANA Administration Ascorbic Acid 500 mg 06/18/24 09:00 06/19/24 08:50 Ascorbic Acid 500 Mg Tablet PO 500 mg QAM [facility] Administration Calcium Carbonate 500 mg 06/18/24 09:00 06/19/24 08:50 Calcium/Vitamin D 500 Mg/5 Mcg (200 I.U.) Tablet PO 500 mg QAM JOVANA Administration Cefdinir 300 mg 06/18/24 09:00 06/19/24 08:50 Cefdinir 300 Mg Capsule PO 300 mg Q12HR JOVANA Administration Celecoxib 100 mg 06/18/24 09:00 06/19/24 08:51 Celecoxib 100 Mg Capsule PO 100 mg DAILY JOVANA Administration Ondansetron HCl 4 mg 06/18/24 02:05 Ondansetron Inj 4 Mg/2 Ml Vial IV PUSH Q4H PRN Nausea Polyethylene Glycol 17 gm 06/18/24 09:00 06/19/24 08:57 Polyethylene Glycol 3350 17 Gm Powd.Pack PO Not Given QAM [facility] Senna/Docusate Sodium 2 tab 06/18/24 09:00 06/19/24 08:50 Senna/Docusate Sodium Tablet PO 2 tab BID JOVANA Administration Vitamin B Complex 1 cap 06/18/24 09:00 06/19/24 08:51 Vitamin B Complex Capsule PO 1 cap DAILY [facility] Administration Vitamin D 400 units 06/18/24 09:00 06/19/24 08:49 Cholecalciferol 400 Units Tablet (Vit D) PO 400 units QAM [facility] Administration Radiology Results: ITS Impressions Hip/Pelvis X-Ray 06/18/24 05:16 Impression: Acute comminuted fracture which appears to be isolated to the left greater trochanter, extending to the interface of the underlying hardware/femoral stem component. Chest X-Ray 06/18/24 05:22 Impression: Clear lungs. Probable COPD. Labs Labs: Laboratory Results - last 24 hr 06/19/24 05:42 WBC 10.7 H RBC 3.08 L Hgb 10.0 L Hct 30.5 L MCV 99.0 MCH 32.5 MCHC 32.8 RDW 12.6 Plt Count 179 MPV 10.9 H Immature Gran % (Auto) 0.4 Neut % (Auto) 77.3 H Lymph % (Auto) 10.7 L [place] % (Auto) 8.2 Eos % (Auto) 2.8 Baso % (Auto) 0.6 Lymph # (Auto) 1.15 [place] # (Auto) 0.9 H Eos # (Auto) 0.3 Baso # (Auto) 0.1 Abs Immat Gran (auto) 0.04 H Absolute Neuts (auto) 8.3 H Absolute Nucleated RBC 0.000 Nucleated RBC % 0.0 Sodium 136 L Potassium 3.7 Chloride 106 Carbon Dioxide 28 Anion Gap 2 L BUN 10 Creatinine 0.50 L Estim Creat Clear Calc 55 Estimated GFR > 60 Glucose 105 Calcium 8.7 Magnesium 2.1 Total Bilirubin 0.8 AST 25 ALT 15 Alkaline Phosphatase 89 Total Protein 6.0 L Albumin 3.3 L Quality VTE Prophylaxis VTE prophylaxis: mechanical ordered and pharmacologic ordered -Patient's previous records reviewed on admission -ER notes reviewed in detail on admission -discussed all findings and current treatment plan with patient/Family/POA -Consultations reviewed for recommendations -Patient's disposition for safe discharge discussed with manager rn case Dictation performed by [employer] direct speech recognition software, therefore embryology professor variants and typographical errors may occur. Hospitalist MIPS Advance Care Plan I have confirmed that the patient's Advanced Care Plan is present, code status is documented, or surrogate decision maker is listed in patient medical record.: Yes Medication Reconciliation I have utilized all available resources to obtain, update and review the patients current medications (includes all prescriptions, OTC, herbals, cannabis, and nutritional supplements).: Yes The patient is not eligible for med reconciliation; the patient is in a emergent medical situation where delaying treatment would jeopardize the patients health.: No
[2024-06-19 09:47] LABS: Vitamin D 25 Hydroxy 33.8 ng/mL
[2024-06-20] VITALS: BP 137/61; PULSE 78; RESP 20; TEMP 36.4; O2SAT 95
[2024-06-20] MEDS: ACETAMINOPHEN 325 MG TABLET 650 MG PO ×3 (00:26→12:43)
[2024-06-20] MEDS: HYDROcodone/acetaminophen (*CRX) 5-325 MG TABLET 1 TAB PO ×3 (02:47→15:17)
[2024-06-20 04:00] VITALS: BP 148/65; PULSE 72; RESP 20; TEMP 36.5; O2SAT 97
[2024-06-20 06:10] LABS: Basophils Absolute Auto 0.1 K/mm3 (0.0-0.1); Basophils Percent Auto 0.8 % (0.2-1.2); Eosinophils Absolute Auto 0.4 K/mm3 (0-0.3); Eosinophils Percent Auto 5.1 % (0-4.4); Immature Granulocyte Absolute 0.03 K/mm3 (0.00-0.031); Immature Granulocyte Percent A 0.4 % (0-0.5); Lymphocytes Absolute Auto 1.27 K/mm3 (0.9-3.2); Lymphocytes Percent Auto 15.3 % (18.3-44.2); Mean Corpuscular HGB Conc 32.3 g/dl (32-36); Mean Corpuscular Hemoglobin 31.6 pg (26-34); Mean Corpuscular Volume 98.1 fl (80-100); Mean Platelet Volume 10.5 fl (7.4-10.4); Monocytes Absolute Auto 0.9 K/mm3 (0.1-0.6); Monocytes Percent Auto 10.7 % (2.6-8.5); Neutrophils Absolute Auto 5.6 K/mm3 (1.3-6.7); Neutrophils Percent Auto 67.7 % (45.5-73.1); Platelet Count Result 230 k/mm3 (150-375); Red Blood Count 3.16 M/mm3 (4.2-5.4); Red Cell Distribution Width 12.5 % (11.5-14.5); White Blood Count 8.3 K/mm3 (4.5-10.0)
[2024-06-20 06:27] LABS: Alanine Aminotransferase 14 U/L (6-35); Albumin Level 3.2 g/dL (3.5-5.1); Alkaline Phosphatase 81 U/L (38-126); Anion Gap 1 mmol/L (4-12); Aspartate Amino Transferase 24 U/L (14-36); Bilirubin,Total 0.8 mg/dL (0.2-1.3); Blood Urea Nitrogen 12 mg/dL (7-17); Calcium 8.7 mg/dL (8.4-10.2); Carbon Dioxide 28 mmol/L (22-30); Chloride 106 mmol/L (98-107); Estimated CRCL calculation 55 ml/min; Estimated Glomerular Filt Rate > 60; Glucose 99 mg/dL (65-110); Magnesium 2.2 mg/dL (1.6-2.3); Potassium 3.7 mmol/L (3.4-5.0); Sodium 135 mmol/L (137-145)
[2024-06-20 08:00] VITALS: BP 162/76; PULSE 76; RESP 16; TEMP 36.3; O2SAT 98
[2024-06-20] MEDS: ASCORBIC ACID 500 MG TABLET PO (09:57)
[2024-06-20] MEDS: VITAMIN B COMPLEX CAPSULE 1 CAP PO (09:58)
[2024-06-20] MEDS: CELECOXIB 100 MG CAPSULE PO (09:58)
[2024-06-20] MEDS: APIXABAN 2.5 MG TABLET PO (09:58)
[2024-06-20] MEDS: CALCIUM/VITAMIN D 500 MG/5 MCG (200 I.U.) TABLET PO (09:58)
[2024-06-20] MEDS: CHOLECALCIFEROL 400 UNITS TABLET (VIT D) PO (09:58)
[2024-06-20] MEDS: CEFDINIR 300 MG CAPSULE PO (09:59)
--- NOTE | 2024-06-20 10:30 | P.PNOP_ITS ---
Progress Note: A&P Assessment and Plan (1) Fracture of greater trochanter of left femur: Qualifiers: Encounter type: initial encounter Fracture type: closed Fracture alignment: displaced Qualified Code(s): S72.112A - Displaced fracture of greater trochanter of left femur, initial encounter for closed fracture Code(s): S72.112A - Displaced fracture of greater trochanter of left femur, initial encounter for closed fracture Status: Acute (2) S/P total left hip arthroplasty: Code(s): Z96.642 - Presence of left artificial hip joint Status: Acute Assessment and Plan: Patient is hospital day number 3 after admission after falling on to her left hip sustaining a left greater trochanteric hip fracture 36 hours after her left hip replacement. She is cheerful today and having minimal discomfort fortunately. She has been up to the bathroom and walk in the room and is maintaining 50% bait Weight- bearing she feels and is not having more than mild discomfort fortunately. The acute care certified nursing assistant has advised me that the patient can be accepted to rehabilitation today. Her hemoglobin has been stable at 10.0. Platelets 162417. Creatinine 0.5. She is on Eliquis for DVT prophylaxis, prophylactic antibiotics with septa in her for 4 more days and we will continue her other medications. I have entered discharge instructions for rehab and wound care into the discharge summary. Subjective Subjective Date/Time Seen: 06/20/24 10:30 Objective Data Vital Signs Vital Signs: Vital Signs - 24 hr 06/19/24 13:00 06/19/24 14:31 06/19/24 16:00 Temperature 36.8 C 36.7 C Pulse Rate 82 82 Respiratory Rate 16 16 Blood Pressure 91/58 L 127/62 157/66 H Pulse Oximetry 99 100 06/19/24 20:00 06/20/24 00:00 06/20/24 04:00 Temperature 36.8 C 36.4 C 36.5 C Pulse Rate 79 78 72 Respiratory Rate 20 20 20 Blood Pressure 141/63 H 137/61 148/65 H Pulse Oximetry 96 95 97 06/20/24 08:00 Temperature 36.3 C L Pulse Rate 76 Respiratory Rate 16 Blood Pressure 162/76 H Pulse Oximetry 98 Intake/Output Intake/Output: Intake & Output 06/17/24 06/18/24 06/19/24 06/20/24 23:59 23:59 23:59 23:59 Intake Total 1730 1380 840 Output Total 1600 1550 1 Balance 130 -170 839 Meds/Results Medications: Active Medications Generic Name Dose Route Start Last Admin Trade Name Freq PRN Reason Stop Dose Admin Acetaminophen 650 mg 06/18/24 12:00 06/20/24 06:02 Acetaminophen 325 Mg Tablet PO 650 mg Q6HR JOVANA Administration Hydrocodone Bitart/Acetaminophen 1 tab 06/18/24 14:32 06/20/24 10:02 Hydrocodone/Acetaminophen (*Crx) 5-325 Mg Tablet PO 1 tab Q4H PRN Administration Pain Rated 4-6 Apixaban 2.5 mg 06/18/24 11:55 06/20/24 09:58 Apixaban 2.5 Mg Tablet PO 2.5 mg Q12HR JOVANA Administration Ascorbic Acid 500 mg 06/18/24 09:00 06/20/24 09:57 Ascorbic Acid 500 Mg Tablet PO 500 [facility] Calcium Carbonate 500 mg 06/18/24 09:00 06/20/24 09:58 Calcium/Vitamin D 500 Mg/5 Mcg (200 I.U.) Tablet PO 500 mg QAM [facility] Administration Cefdinir 300 mg 06/18/24 09:00 06/20/24 09:59 Cefdinir 300 Mg Capsule PO 300 mg Q12HR [facility] Administration Celecoxib 100 mg 06/18/24 09:00 06/20/24 09:58 Celecoxib 100 Mg Capsule PO 100 mg DAILY [facility] Administration Ondansetron HCl 4 mg 06/18/24 02:05 Ondansetron Inj 4 Mg/2 Ml Vial IV PUSH Q4H PRN Nausea Polyethylene Glycol 17 gm 06/18/24 09:00 06/20/24 09:59 Polyethylene Glycol 3350 17 Gm Powd.Pack PO Not Given QAM [facility] Senna/Docusate Sodium 2 tab 06/18/24 09:00 06/20/24 09:58 Senna/Docusate Sodium Tablet PO Not Given BID [facility] Vitamin B Complex 1 cap 06/18/24 09:00 06/20/24 09:58 Vitamin B Complex Capsule PO 1 cap DAILY [facility] Administration Vitamin D 400 units 06/18/24 09:00 06/20/24 09:58 Cholecalciferol 400 Units Tablet (Vit D) PO 400 units QAM [facility] Administration Radiology Results: ITS Impressions Hip/Pelvis X-Ray 06/18/24 05:16 Impression: Acute comminuted fracture which appears to be isolated to the left greater trochanter, extending to the interface of the underlying hardware/femoral stem component. Chest X-Ray 06/18/24 05:22 Impression: Clear lungs. Probable COPD. Labs Labs: Laboratory Results - last 24 hr 06/20/24 05:47 WBC 8.3 RBC 3.16 L Hgb 10.0 L Hct 31.0 L MCV 98.1 MCH 31.6 MCHC 32.3 RDW 12.5 Plt Count 230 MPV 10.5 H Immature Gran % (Auto) 0.4 Neut % (Auto) 67.7 Lymph % (Auto) 15.3 L Wheeler % (Auto) 10.7 H Eos % (Auto) 5.1 H Baso % (Auto) 0.8 Lymph # (Auto) 1.27 Wheeler # (Auto) 0.9 H Eos # (Auto) 0.4 H Baso # (Auto) 0.1 Abs Immat Gran (auto) 0.03 Absolute Neuts (auto) 5.6 Absolute Nucleated RBC 0.000 Nucleated RBC % 0.0 Sodium 135 L Potassium 3.7 Chloride 106 Carbon Dioxide 28 Anion Gap 1 L BUN 12 Creatinine 0.50 L Estim Creat Clear Calc 55 Estimated GFR > 60 Glucose 99 Calcium 8.7 Magnesium 2.2 Total Bilirubin 0.8 AST 24 ALT 14 Alkaline Phosphatase 81 Total Protein 6.0 L Albumin 3.2 L
--- NOTE | 2024-06-20 11:57 | P.DS_ITS ---
DS: Admitting Diagnosis Discharge Date 06/20/2024 Admitting Diagnosis fracture of greater trochanter of left femur DS: Discharge Diagnosis Discharge Diagnosis (1) Closed fracture of greater trochanter of left femur: Qualifiers: Encounter type: initial encounter Fracture alignment: displaced Qualif ied Code(s): S72.112A - Displaced fracture of greater trochanter of left femur, initial encounter for closed fracture Code(s): S72.112A - Displaced fracture of greater trochanter of left femur, initial encounter for closed fracture Status: Acute Assessment and Plan: patient was postop day 1 of total left hip arthroplasty had fall at home and landed on left hip with new displaced fracture of the greater trochanter * Dr. Driver with ortho consulted * pain control * resume patient's Eliquis for DVT prophylaxis * SCDs * PT/OT for evaluation and recommendations * ice pack to affected sites * weight-bearing status per Orthopedics 06/18/24: * 50% weight bearing * continue with pain management * waiting on placement to rehab (2) S/P total left hip arthroplasty: Code(s): Z96.642 - Presence of left artificial hip joint Status: Acute Assessment and Plan: SEE ABOVE (3) Fever of unknown origin: Code(s): R50.9 - Fever, unspecified Status: Acute Assessment and Plan: patient with fever in the emergency department peaked at 101.0, likely secondary postop new fracture resolved with acetaminophen * CXR with clear lung quevedo * UA negative * COVID/FLU/RSV negative * blood cultures pending * antipyretics * monitor for signs of infection surgical site 06/19/24: * has remained afebrile (4) Anemia: Code(s): D64.9 - Anemia, unspecified Status: Acute Assessment and Plan: * Hgb 9.9 POA * likely secondary to postop blood loss * Trend and transfuse PRBC ig HGB <7.0 * continue to monitor incisional site and fracture for hematoma IMPROVING Plan Disposition: Discharged to SNF for continued Rehab DS: Summary Hospital Course Reason for hospitalization: fracture of greater trochanter of left femur Hospital Course: Patient is an 84-year-old female who presented to the emergency department after a fall at home complaints of left hip pain. Patient had been discharged same day to home following a left total hip arthroplasty. Patient reported she was attempting to brick picker something from the ground fell when she fell and landed on her left hip. patient stated that the hip pain continued to worsen and she came to the emergency department for evaluation x-ray does show a acute comminuted fracture which was isolated to the left greater trochanter extending to the interface of the underlying hardware and femoral stem component. patient did have mild leukocytosis and became afebrile in the emergency department likely secondary to post surgery and new fracture. CXR showed clear lungs her COVID, flu and RSV negative as well as negative UA. Dr. Driver have been called consulted in the emergency department and patient was admitted to the medical unit for further evaluation treatment with consult to PT /OT. Patient denied any chest pain, shortness a breath, nausea, vomiting, dizziness, loss of consciousness or hitting her head during fall. labs were otherwise insignificant except for hemoglobin at 9.9 which is likely secondary to postop surgery as expected. No surgical intervention was indicated and patient was working with PT/OT with no difficulty and pain well managed. Labs remained unremarkable and vitals stable. Patient with no complaints or in no acute distress day of discharge. She was discharged to a rehab and will have follow-up with Dr. driver outpatient. Status at Discharge Functional status at discharge: uses cane/walker Overall status at discharge: patient is progressing back to baseline Time Spent with Patient Time attestation: Total time spent providing and/or coordinating discharge services: Time spent: Greater than 30 minutes Exam Narrative: * GENERAL: Alert and oriented x 3. No acute distress. * EYES: EOMI. No scleral icterus. PERRLA. * HEENT: Moist mucous membranes. * LUNGS: Clear to auscultation bilaterally. No accessory muscle use. * CARDIOVASCULAR: Regular rate and rhythm. No murmur. No JVD. S1-S2 * ABDOMEN: Soft, non tenderness and non-distended. No palpable masses. * EXTREMITIES: LLE pain with movement, decreased ROM * SKIN: No rashes or lesions. Skin warm, dry. postop incisional site LT upper thigh no signs infection no erythema or swelling * NEUROLOGIC: No focal neurological deficits. CN II-XII grossly intact * PSYCHIATRIC: Appropriate mood and affect. Good judgement and insight. No visual or auditory hallucinations. No suicidal or homicidal ideation. DS: Data Data Completed and Pending Labs on day of discharge: Labs from last 24 hours 06/20/24 05:47 WBC 8.3 RBC 3.16 L Hgb 10.0 L Hct 31.0 L MCV 98.1 MCH 31.6 MCHC 32.3 RDW 12.5 Plt Count 230 MPV 10.5 H Immature Gran % (Auto) 0.4 Neut % (Auto) 67.7 Lymph % (Auto) 15.3 L Cass % (Auto) 10.7 H Eos % (Auto) 5.1 H Baso % (Auto) 0.8 Lymph # (Auto) 1.27 Cass # (Auto) 0.9 H Eos # (Auto) 0.4 H Baso # (Auto) 0.1 Abs Immat Gran (auto) 0.03 Absolute Neuts (auto) 5.6 Absolute Nucleated RBC 0.000 Nucleated RBC % 0.0 Sodium 135 L Potassium 3.7 Chloride 106 Carbon Dioxide 28 Anion Gap 1 L BUN 12 Creatinine 0.50 L Estim Creat Clear Calc 55 Estimated GFR > 60 Glucose 99 Calcium 8.7 Magnesium 2.2 Total Bilirubin 0.8 AST 24 ALT 14 Alkaline Phosphatase 81 Total Protein 6.0 L Albumin 3.2 L Preliminary micro results at discharge 06/18/24 05:14 Blood Culture - Preliminary Blood 06/18/24 05:04 Blood Culture - Preliminary Blood Discharge Plan Discharge Attending physician on discharge: Francisco Wilburn Consulting providers: Kirit Driver; Thierno Negron; Joaquim King; Shaun Lamas Discharging Clinician: Venus Kinney Anticipated Discharge Date/Time: 06/20/24 11:46 Patient Disposition: Inpatient Rehab Facility Activity: october shower Diet: regular Wound Care Instructions: remove dressing to shower and change dressing daily Discharge Instructions: Patient is 50% weight-bearing left leg for 6 weeks. Patient should be on Eliquis for that entire time. No strengthening exercises to the left leg. Patient has follow-up visit with Dr. Driver that he is scheduled in approximately 10 days. Remove the dressing left hip wound for showers. After shower reapply folded 4 x 4 with 1 in transpore tape. Physical therapy: 50% max weight-bearing left leg. Patient has greater trochanter fracture. No heel slides, leg raises or active abduction. Please assist in lifting the left leg getting in and out of bed. KIRIT DRIVER M.D [facility] [address] [place] [address] [address] [place] [address] POST-OPERATIVE DISCHARGE INSTRUCTIONS ANTERIOR TOTAL HIP ARTHROPLASTY 1. Move toes/feet up and down every hour while awake. 2. Be up walking every hour while awake. 3. Use walker night time babysitter if instructed to use walker night time babysitter.When you are allowed to use the cane, use the cane in the opposite hand. 4. When resting, do not rest in the chair. Rather, lie on your back, with back flat, and the leg elevated above heart to minimize swelling. You may put a pillow under your head. Do not rest in a chair. Resting in the chair results in swelling in the leg. Significant swelling could indicate a blood clot and if this occurs, call the office (or go to the ER) to have a venous ultrasound performed. Its ok to sit in the chair to eat and use the toilet and to receive a guest but sitting in a chair will cause your leg to swell. so try to minimize s itting in a chair. 5. Wound Care: Apply a folded 4x4 sponge to incision and hold with crossing strips of 1 inch Transpore tape. 6. Follow weight bearing status as instructed: 50% weight-bearing left leg. 7. May shower. Remove dressing before shower and reapply dressing after shower. Patient Instructions: Hip Fracture (GEN) Patient Language: Kuwaiti Stand Alone Forms: General Discharge Information Follow-up/Referrals: Hany Parsons MD [Primary Care Provider] - 4 Weeks Kirit Driver MD [Physician] - Keep Reg. Scheduled Appt. Discharge Medications: New hydrocodone-acetaminophen 5-325 mg Tablet 1 tablet PO Q4H PRN (Reason: Pain Rated 4-6) Qty: 20 0RF Continued vitamin B complex Tablet 1 tablet PO DAILY calcium carbonate-vitamin D3 [Calcium 600 with Vitamin D3] 600 mg-12.5 mcg (500 unit) capsule 1 cap PO DAILY ascorbic acid (vitamin C) 1,000 mg capsule 1 g PO DAILY cholecalciferol (vitamin D3) 10 mcg (400 unit) capsule 10 mcg PO DAILY coenzyme Q10 100 mg capsule 100 mg PO DAILY Qty: 1 0RF acetaminophen 325 mg Tablet 650 mg PO Q6HR Qty: 100 0RF sennosides-docusate sodium [Senokot-S] 8.6-50 mg Tablet 2 tab-cap PO BID Qty: 120 0RF Eliquis 2.5 mg Tablet 2.5 mg PO Q12HR Qty: 70 0RF Patient Comments: PT HAS NOT BEGUN THERAPY SINCE DC 06/17/23 polyethylene glycol 3350 [Miralax] 17 gram Powder In Packet 17 g PO QAM Qty: 30 0RF celecoxib [Celebrex] 100 mg Capsule 100 mg PO DAILY Qty: 4 0RF cefdinir 300 mg Capsule 300 mg PO Q12HR Qty: 10 0RF Discontinued red yeast rice 600 mg tablet 600 mg PO BID Rx Instructions: give with meal/snack oxycodone 5 mg tablet 2.5 mg PO Q4H PRN (Reason: pain) Qty: 20 0RF Date of admission: 06/18/24 02:05 Primary Care Provider: Hany Parsons Admitting Provider: Francisco Wilburn Attending physician on admission: Venus Kinney Condition: Stable Quality VTE Prophylaxis VTE prophylaxis: mechanical ordered and pharmacologic ordered Hospitalist MIPS Heart Failure (Exclusion) Patient has history of Heart Transplant or Left Ventricular Assistive Device?: No IF YES, STOP HERE Heart Failure (Qualifier) Patient has current or prior documentation of LVEF less than or equal to 40%, or mod/servere depressed LVSF?: No IF NO, STOP HERE
[2024-06-20 12:00] VITALS: BP 118/72; PULSE 87; RESP 24; TEMP 36.6; O2SAT 97
[2024-06-20 14:08] LABS: SARS-CoV-2 RNA PCR Negative (Negative)
--- OUTSIDE RECORDS SUMMARY | 2024-06-24 17:56 | XMS_ITS | Clinical Summary ---
Author Organization [facility] Address [address] [place] [id number] Care Team Providers Care Beater Operator Name Role Phone Christine Alex MD Primary Care Provider + Allergies Active Allergy Reactions Criticality Noted Date Comments Codeine Syncope High 08/13/2019 Medications alendronate (FOSAMAX) 70 mg tablet TK 1 T PO Q WEEK 07/20/2019 Active Premarin vaginal cream 07/08/2019 Active clobetasoL (TEMOVATE) 0.05 % external solution 07/23/2019 Active Active Problems Problem Noted Date Diagnosed Date Abnormal mammogram of left breast 08/14/2019 Surgical History Surgery Date Site/Laterality Comments APPENDECTOMY 1979 something ANKLE SURGERY Left 1990 something FINGER SURGERY 06/17/2017 - 06/16/2018 pinkie Medical History Medical History Date Comments Depression Osteoporosis Itchy scalp Family History Medical History Relation Name Comments Skin cancer Father Colon cancer Father's Sister Colon cancer Maternal Grandfather Relation Name Status Comments Father Father's Sister Maternal Grandfather Social History Tobacco Use Types Packs/Day Years Used Date Smoking Tobacco: Never Personal Safety Answer Date Recorded Getting School Help Needed Not on file 08/31 Comments No Sex and Gender Information Value Date Recorded Sex Assigned at Not on file Legal Sex Female 12:41 PM CARBONIZER Gender Identity Not on file Sexual Orientation Not on file Obstetrics History Last Filed Vital Signs Vital Sign Reading Time Taken Comments Blood Pressure - - Pulse - - Temperature - - Respiratory Rate - - Oxygen Saturation - - Inhaled Oxygen Concentration - - Weight 61.2 kg (135 lb) 08/13/2019 1:51 PM CARBONIZER Height 157.5 cm (5' 2 ) 08/13/2019 1:51 PM CARBONIZER Body Mass Index 24.69 08/13/2019 1:51 PM CARBONIZER Plan of Treatment Not on file Insurance [employer] Care Teams Beater Operator Relationship Specialty Start Date End Date Christine Alex MD PCP - General Obstetrics and Gynecology 08/13/19
--- OUTSIDE RECORDS SUMMARY | 2024-06-24 17:56 | XMS_ITS | Encounter Summary ---
Author Organization [facility] Address [address] [place] [id number] Care Team Providers Care Basketball Assembler Name Role Phone Christine Alex MD Primary Care Provider + Reason for Referral * Diagnostic Imaging (Routine) - Closed Specialty Diagnoses / Procedures Referred By Kathia dotson Referred To Contact Diagnoses Abnormal mammogram of left breast Procedures US Breast Left Limited Esther Lucero MD PhD Phone: tel: fax: [address] [phone] Referral ID Status Reason Start Date Expiration Date Visits Re quested Visits Authorized [id number] Closed 07/08/2019 01/16/2021 1 1 ING SUPERVISOR Reason for Visit * Diagnostic Imaging (Routine) - Closed Specialty Diagnoses / Procedures Referred By Kathia dotson Referred To Contact Diagnoses Abnormal mammogram of left breast Procedures US Breast Left Limited Esther Lucero MD PhD Phone: tel: fax: [address] [phone] Referral ID Status Reason Start Date Expiration Date Visits Re quested Visits Authorized [id number] Closed 07/08/2019 01/16/2021 1 1 Encounter Details Date Type Department Care Team (Late st Contact Info) Description 08/13/2019 2:11 PM WORKING SUPERVISOR - 08/13/2019 11:59 PM WORKING SUPERVISOR Hospital Encounter [facility] [place] [address] Esther Lucero MD PhD [id number] [place] [address] Abnormal mammogram of left breast Discharge Disposition: Discharge to home or self care Social History Tobacco Use Types Packs/Day Years Used Date Smoking Tobacco: Never Comments No Sex and Gender Information Value Date Recorded Sex Assigned at Not on file Legal Sex Female 12:41 PM WORKING SUPERVISOR Gender Identity Not on file Sexual Orientation Not on file documented as of this encounter Medications at Time of Discharge alendronate (FOSAMAX) 70 mg tablet TK 1 T PO Q WEEK 07/20/2019 clobetasoL (TEMOVATE) 0.05 % external solution 07/23/2019 Premarin vaginal cream 07/08/2019 documented as of this encounter Discharge Disposition Disposition Code Departure Means Destination Discharge to home or self care documented in this encounter Plan of Treatment Not on file documented as of this encounter Procedures Procedure Name Priority Date/Time Associated Diagnosis Comments US BREAST LEFT LIMITED Schedule Routine, Read Routine (OP Routine) 08/13/2019 3:23 PM WORKING SUPERVISOR Abnormal mammogram of left breast documented in this encounter Results * US Breast Left Limited (08/13/2019 3:23 PM WORKING SUPERVISOR) Anatomical Region Laterality Modality Breast Left Ultrasound 08/13/2019 3:32 PM WORKING SUPERVISOR Impressions 08/13/2019 3:32 PM WORKING SUPERVISOR The 2 previously reported suspicious areas represent fibroglandular tissue and ligamentous shadowing. ??2 additional cysts are demonstrated. OVERALL FINAL ASSESSMENT: BI-RADS Category 2: Benign. Annual screening mammography is recommended. Electronically signed by: Shahriar Palomares M.D. Narrative 08/13/2019 3:32 PM WORKING SUPERVISOR EXAMINATION: LEFT BREAST ULTRASOUND HISTORY: 79-year-old woman recommended for biopsy of a 20 mm heterogeneous hypoechoic area at 12:00 near the nipple and 7 mm triangular hypoechoic area with posterior shadowing at 3:00 subareolar in the left breast on recent outside facility imaging. Additional ultrasound was requested of a mass in the lateral left breast and superior left breast, see Dr. Sandy's consult report of 08/10/2019. COMPARISON: Mammography 06/26/2019, 05/09/2019, 02/22/2016 and ultrasound 06/26/2019. TECHNIQUE: Directed ultrasound evaluation of the LEFT breast was a trained head of art and by Dr. Palomares. ??The right breast at 12:00 near the nipple was scanned for comparison. ULTRASOUND FINDINGS: The reported triangular hypoechoic area with posterior shadowing at 3:00 subareolar could not be reproduced. ??This was likely related to ligamentous shadowing and refraction from tangential fat lobules. Ultrasound of 12:00 at 1 cm from the nipple demonstrates hypoechoic tissue, which is similar to the contralateral right breast. Ultrasound of the masses at 12:00 and 3:00 demonstrate a corresponding cyst measuring 19 mm and 16 mm maximally, respectively. Procedure Note Shahriar Palomares MD - 08/13/2019 EXAMINATION: LEFT BREAST ULTRASOUND HISTORY: 79-year-old woman recommended for biopsy of a 20 mm heterogeneous hypoechoic area at 12:00 near the nipple and 7 mm triangular hypoechoic area with posterior shadowing at 3:00 subareolar in the left breast on recent outside facility imaging. Additional ultrasound was requested of a mass in the lateral left breast and superior left breast, see Dr. Sandy's consult report of 08/10/2019. COMPARISON: Mammography 06/26/2019, 05/09/2019, 02/22/2016 and ultrasound 06/26/2019. TECHNIQUE: Directed ultrasound evaluation of the LEFT breast was a trained head of art and by Dr. Palomares. The right breast at 12:00 near the nipple was scanned for comparison. ULTRASOUND FINDINGS: The reported triangular hypoechoic area with posterior shadowing at 3:00 subareolar could not be reproduced. This was likely related to ligamentous shadowing and refraction from tangential fat lobules. Ultrasound of 12:00 at 1 cm from the nipple demonstrates hypoechoic tissue, which is similar to the contralateral right breast. Ultrasound of the masses at 12:00 and 3:00 demonstrate a corresponding cyst measuring 19 mm and 16 mm maximally, respectively. IMPRESSION: The 2 previously reported suspicious areas represent fibroglandular tissue and ligamentous shadowing. 2 additional cysts are demonstrated. OVERALL FINAL ASSESSMENT: BI-RADS Category 2: Benign. Annual screening mammography is recommended. Electronically signed by: Shahriar Palomares M.D. Esther Lucero MD PhD IMG MAMMO PROCEDURES Final Result documented in this encounter Visit Diagnoses Diagnosis Abnormal mammogram of left breast documented in this encounter Care Teams Basketball Assembler Relationship Specialty Start Date End Date Christine Alex MD PCP - General Obstetrics and Gynecology 08/13/19 documented as of this encounter
--- OUTSIDE RECORDS SUMMARY | 2024-06-24 17:56 | XMS_ITS | Referral Summary ---
Author Organization [facility] Address [address] [place] [id number] Care Team Providers Care Board Handler Name Role Phone Christine Alex MD Primary Care Provider + Allergies Active Allergy Reactions Criticality Noted Date Comments Codeine Syncope High 08/13/2019 Medications alendronate (FOSAMAX) 70 mg tablet TK 1 T PO Q WEEK 07/20/2019 Active Premarin vaginal cream 07/08/2019 Active clobetasoL (TEMOVATE) 0.05 % external solution 07/23/2019 Active Active Problems Problem Noted Date Diagnosed Date Abnormal mammogram of left breast 08/14/2019 Social History Tobacco Use Types Packs/Day Years Used Date Smoking Tobacco: Never Personal Safety Answer Date Recorded Getting School Help Needed Not on file 08/31 Comments No Sex and Gender Information Value Date Recorded Sex Assigned at Not on file Legal Sex Female 12:41 PM MICROPHONE OPERATOR Gender Identity Not on file Sexual Orientation Not on file Last Filed Vital Signs Vital Sign Reading Time Taken Comments Blood Pressure - - Pulse - - Temperature - - Respiratory Rate - - Oxygen Saturation - - Inhaled Oxygen Concentration - - Weight 61.2 kg (135 lb) 08/13/2019 1:51 PM MICROPHONE OPERATOR Height 157.5 cm (5' 2 ) 08/13/2019 1:51 PM MICROPHONE OPERATOR Body Mass Index 24.69 08/13/2019 1:51 PM MICROPHONE OPERATOR Plan of Treatment Not on file Insurance [employer] Care Teams Board Handler Relationship Specialty Start Date End Date Christine Alex MD PCP - General Obstetrics and Gynecology 08/13/19
--- OUTSIDE RECORDS SUMMARY | 2024-06-24 17:56 | XMS_ITS | Encounter Summary ---
Author Organization [facility] Facility Care Team Providers Care Scallop Cutter Machine Name Role Phone Christine Alex MD Primary Care Provider + Encounter Details Date Type Department Care Team (Latest Contact Info) Description 08/13/2019 Travel Social History Tobacco Use Types Packs/Day Years Used Date Smoking Tobacco: Never Comments No Sex and Gender Information Value Date Recorded Sex Assigned at Not on file Legal Sex Female 12:41 PM MALTSTER Gender Identity Not on file Sexual Orientation Not on file documented as of this encounter Plan of Treatment Not on file documented as of this encounter Visit Diagnoses Not on filedocumented in this encounter Care Teams Scallop Cutter Machine Relationship Specialty Start Date End Date Christine Alex MD PCP - General Obstetrics and Gynecology 08/13/19 documented as of this encounter
--- OUTSIDE RECORDS SUMMARY | 2024-06-24 17:57 | XMS_ITS | Encounter Summary ---
Author Organization [facility] Address [address] [facility] [address] [place] [address] Phone Care Team Providers Care Transportation Maintenance Supervisor Name Role Phone Zain Aguirre MD Primary Care Provider [phone] Reason for Referral * Diagnostic Imaging (Routine) - Closed Specialty Diagnoses / Procedures Referred By Contac t Referred To Contact Diagnoses Abnormal mammogram of left breast Procedures US Breast Left Limited Esther Lucero MD PhD Phone: tel: fax: [address] [address] Referral ID Status Reason Start Date Expiration Date Visits Re quested Visits Authorized [id number] Closed 07/08/2019 01/16/2021 1 1 TH AND GARLAND MAKER Encounter Details Date Type Department Care Team (Late st Contact Info) Description 07/08/2019 Orders Only [facility] Surgery [address] [facility] 5th [place] [address] [place] [address] Esther Lucero MD PhD [address] [facility] [id number] [place] [address] Abnormal mammogram of left breast (Primary Dx) Social History Tobacco Use Types Packs/Day Years Used Date Smoking Tobacco: Never Assessed Comments Unknown Sex and Gender Information Value Date Recorded Sex Assigned at Not on file Legal Sex Female 12:41 PM WREATH AND GARLAND MAKER Gender Identity Not on file Sexual Orientation Not on file documented as of this encounter Plan of Treatment Not on file documented as of this encounter Results * US Breast Left Limited (08/13/2019 3:23 PM WREATH AND GARLAND MAKER) Anatomical Region Laterality Modality Breast Left Ultrasound 08/13/2019 3:32 PM WREATH AND GARLAND MAKER Impressions 08/13/2019 3:32 PM WREATH AND GARLAND MAKER The 2 previously reported suspicious areas represent fibroglandular tissue and ligamentous shadowing. ??2 additional cysts are demonstrated. OVERALL FINAL ASSESSMENT: BI-RADS Category 2: Benign. Annual screening mammography is recommended. Electronically signed by: Shahriar Palomares M.D. Narrative 08/13/2019 3:32 PM WREATH AND GARLAND MAKER EXAMINATION: LEFT BREAST ULTRASOUND HISTORY: 79-year-old woman [...] of the LEFT breast was a trained validation manager and by Dr. Palomares. ??The right breast [...] of the LEFT breast was a trained validation manager and by Dr. Palomares. The right breast [...] recommended. Electronically signed by: Shahriar Palomares M.D. us Esther Lucero MD PhD IMG MAMMO PROCEDURES Final Result * Breast Imaging Outside Consult (08/10/2019 5:34 PM WREATH AND GARLAND MAKER) Anatomical Region Laterality Modality Breast N/A Mammography 08/11/2019 9:03 AM WREATH AND GARLAND MAKER Impressions 08/11/2019 10:08 AM WREATH AND GARLAND MAKER 1. ??Left breast benign-appearing oval mass at 12:00, unchanged from 2016. 2. ??New round and circumscribed mass in the left breast at 3:00 which can be further evaluated with ultrasound 3. ??New oval well-circumscribed mass in the left breast at 1:00 which can be further evaluated with ultrasound 4. ??Recommend repeat ultrasound of the previously noted left breast 12:00 heterogeneous hypoechoic area, and 3:00 irregular hypoechoic area with posterior shadowing RECOMMENDATION: Additional imaging - ultrasound evaluation of the left breast NOTE: The findings, conclusions and recommendations within this report do not replace the initial findings, conclusions and recommendations made at the facility where the study was performed based upon the imaging and clinical condition at that time. ??Review of the prior report and correlation with the clinical history are necessary. The provided images may or may not represent the [place] source data set and thus may contain changes which may lower the sensitivity of the second opinion interpretation. Dictated by: Richard Vu M.D. The radiology attending physician has personally reviewed this study, and had reviewed and/or edited this written report and agrees with it. Electronically signed by: Rocio Sandy M.D. Narrative 08/11/2019 10:08 AM WREATH AND GARLAND MAKER EXAMINATION: REVIEW AND INTERPRETATION OF OUTSIDE IMAGING FACILITY PERFORMING OUTSIDE IMAGING: [facility] EXAM(S) REVIEWED: 1. ??BILATERAL DIAGNOSTIC MAMMOGRAM WITH TOMOSYNTHESIS, 4 images. 06/26/2019 2. ??LEFT UNILATERAL DIAGNOSTIC MAMMOGRAM WITH TOMOSYNTHESIS, 4 images. ??05/09/2019 3. ??06/26/2019 left breast ultrasound was reviewed but not included for consult. DATE OF INTERPRETATION: 08/11/2019 PHYSICIAN REQUESTING REVIEW: Dr. Knight, who is seeing the patient in the Breast Surgery Clinic. HISTORY: 79-year-old woman with abnormal screening mammogram from 05/09/2019 demonstrating multiple circumscribed masses in the left breast. ??She underwent diagnostic mammogram of the left breast on 06/26/2019 which demonstrated 3 circumscribed masses. ??Subsequent to same day ultrasound revealed 2 simple cysts, as well as a heterogeneous hypoechoic area at 12:00 near the nipple, and a triangular irregular hypoechoic area with posterior shadowing at 3:00 and subareolar. ??Ultrasound guided biopsy was recommended for these heterogeneous and hypoechoic areas. COMPARISON: Prior available mammograms dating back to 01/22/2012 BREAST PARENCHYMAL COMPOSITION: The breasts are heterogenously dense, which may obscure small masses. FINDINGS: Left breast: In the upper breast at 12:00 and mid depth, there is an oval circumscribed benign-appearing mass measuring 1.8 cm, unchanged from 2016. ??At 3:00 and mid depth there is a 13 mm round, circumscribed mass. ??At 1:00 and mid depth there is a 14 mm oval, well-circumscribed mass seen on the craniocaudal projection from the 05/09/2019 study, tomography slice 23/44. No suspicious abnormalities were identified in the right breast. Procedure Note Rocio Sandy MD - 08/11/2019 EXAMINATION: REVIEW AND INTERPRETATION OF OUTSIDE IMAGING FACILITY PERFORMING OUTSIDE IMAGING: [facility] EXAM(S) REVIEWED: 1. BILATERAL DIAGNOSTIC MAMMOGRAM WITH TOMOSYNTHESIS, 4 images. 06/26/2019 2. LEFT UNILATERAL DIAGNOSTIC MAMMOGRAM WITH TOMOSYNTHESIS, 4 images. 05/09/2019 3. 06/26/2019 left breast ultrasound was reviewed but not included for consult. DATE OF INTERPRETATION: 08/11/2019 PHYSICIAN REQUESTING REVIEW: Dr. Knight, who is seeing the patient in the Breast Surgery Clinic. HISTORY: 79-year-old woman with abnormal screening mammogram from 05/09/2019 demonstrating multiple circumscribed masses in the left breast. She underwent diagnostic mammogram of the left breast on 06/26/2019 which demonstrated 3 circumscribed masses. Subsequent to same day ultrasound revealed 2 simple cysts, as well as a heterogeneous hypoechoic area at 12:00 near the nipple, and a triangular irregular hypoechoic area with posterior shadowing at 3:00 and subareolar. Ultrasound guided biopsy was recommended for these heterogeneous and hypoechoic areas. COMPARISON: Prior available mammograms dating back to 01/22/2012 BREAST PARENCHYMAL COMPOSITION: The breasts are heterogenously dense, which may obscure small masses. FINDINGS: Left breast: In the upper breast at 12:00 and mid depth, there is an oval circumscribed benign-appearing mass measuring 1.8 cm, unchanged from 2016. At 3:00 and mid depth there is a 13 mm round, circumscribed mass. At 1:00 and mid depth there is a 14 mm oval, well-circumscribed mass seen on the craniocaudal projection from the 05/09/2019 study, tomography slice 23/44. No suspicious abnormalities were identified in the right breast. IMPRESSION: 1. Left breast benign-appearing oval mass at 12:00, unchanged from 2016. 2. New round and circumscribed mass in the left breast at 3:00 which can be further evaluated with ultrasound 3. New oval well-circumscribed mass in the left breast at 1:00 which can be further evaluated with ultrasound 4. Recommend repeat ultrasound of the previously noted left breast 12:00 heterogeneous hypoechoic area, and 3:00 irregular hypoechoic area with posterior shadowing RECOMMENDATION: Additional imaging - ultrasound evaluation of the left breast NOTE: The findings, conclusions and recommendations within this report do not replace the initial findings, conclusions and recommendations made at the facility where the study was performed based upon the imaging and clinical condition at that time. Review of the prior report and correlation with the clinical history are necessary. The provided images may or may not represent the [place] source data set and thus may contain changes which may lower the sensitivity of the second opinion interpretation. Dictated by: Richard Vu M.D. The radiology attending physician has personally reviewed this study, and had reviewed and/or edited this written report and agrees with it. Electronically signed by: Rocio Sandy M.D. us Esther Lucero MD PhD IMG MAMMO PROCEDURES Final Result documented in this encounter Visit Diagnoses Diagnosis Abnormal mammogram of left breast- Primary Abnormal mammogram of left breast Abnormal mammogram of left breast documented in this encounter Care Teams Transportation Maintenance Supervisor Relationship Specialty Start Date End Date Zain Aguirre MD [address] [place] [address] PCP - General Internal Medicine 07/08/19 08/12/19 documented as of this encounter
--- OUTSIDE RECORDS SUMMARY | 2024-06-24 17:57 | XMS_ITS | Encounter Summary ---
Author Organization [facility] Address [address] [place] [id number] Care Team Providers Care Fur Clipper Name Role Phone Zain Aguirre MD Primary Care Provider [phone] Encounter Details Date Type Department Care Team (Latest Contact Info) Description 08/10/2019 4:51 PM LUMBER LOADER - 08/10/2019 5:25 PM LUMBER LOADER Hospital Encounter [facility] [address] [place] [phone] Discharge Disposition: Discharge to home or self care Social History Tobacco Use Types Packs/Day Years Used Date Smoking Tobacco: Never Assessed Comments Unknown Sex and Gender Information Value Date Recorded Sex Assigned at Not on file Legal Sex Female 12:41 PM LUMBER LOADER Gender Identity Not on file Sexual Orientation [...] Procedure Name Priority Date/Time Associated Diagnosis Comments BREAST IMAGING OUTSIDE REFERENCE Routine 08/10/2019 4:51 PM LUMBER LOADER documented in this encounter Results * Breast Imaging Outside Reference (08/10/2019 4:51 PM LUMBER LOADER) Impressions RAD_MAMMO_[facility] - 08/10/2019 4:51 PM LUMBER LOADER These images are for Reference purposes only and have not been reviewed by [facility] Radiology. ??There will be no report generated by a [facility] Radiologist. Narrative RAD_MAMMO_[facility] - 08/10/2019 4:51 PM LUMBER LOADER EXAMINATION: ??Images For Reference Purposes Only us Esther Lucero MD PhD IMG MAMMO PROCEDURES Final Result [facility]_MAMMO_[facility] documented in this encounter Visit Diagnoses Not on filedocumented in this encounter Care Teams Fur Clipper Relationship Specialty Start Date End Date Zain Aguirre MD [address] [place] [phone] PCP - General Internal Medicine 07/08/19 08/12/19 documented as of this encounter
--- OUTSIDE RECORDS SUMMARY | 2024-06-24 17:57 | XMS_ITS | Encounter Summary ---
Author Organization [facility] Address [address] [place] [address] Care Team Providers Care Hr Business Partner Consultant Name Role Phone Zain Aguirre MD Primary Care Provider [phone] Encounter Details Date Type Department Care Team (Latest Contact Info) Description 08/10/2019 5:34 PM SOFTWARE PROJECT ENGINEER - 08/10/2019 11:59 PM SOFTWARE PROJECT ENGINEER Hospital Encounter [facility] [address] [place] [phone] Abnormal mammogram of left breast Discharge Disposition: Discharge to home or self care Social History Tobacco Use Types Packs/Day Years Used Date Smoking Tobacco: Never Assessed Comments Unknown Sex and Gender Information Value Date Recorded Sex Assigned at Not on file Legal Sex Female 12:41 PM SOFTWARE PROJECT ENGINEER Gender Identity Not on file Sexual Orientation [...] Date/Time Associated Diagnosis Comments BREAST IMAGING OUTSIDE CONSULT Routine 08/10/2019 5:34 PM SOFTWARE PROJECT ENGINEER Abnormal mammogram of left breast documented in this encounter Results * Breast Imaging Outside Consult (08/10/2019 5:34 PM SOFTWARE PROJECT ENGINEER) Anatomical Region Laterality Modality Breast N/A Mammography 08/11/2019 9:03 AM SOFTWARE PROJECT ENGINEER Impressions 08/11/2019 10:08 AM SOFTWARE PROJECT ENGINEER 1. ??Left breast benign-appearing oval mass at [...] images may or may not represent the [place] source data set and thus may contain changes which may lower the sensitivity of the second opinion interpretation. Dictated by: Richard Vu M.D. The radiology attending physician has personally reviewed this study, and had reviewed and/or edited this written report and agrees with it. Electronically signed by: Rocio Sandy M.D. Narrative 08/11/2019 10:08 AM SOFTWARE PROJECT ENGINEER EXAMINATION: REVIEW AND INTERPRETATION OF OUTSIDE IMAGING FACILITY PERFORMING OUTSIDE IMAGING: [facility] EXAM(S) REVIEWED: 1. ??BILATERAL DIAGNOSTIC MAMMOGRAM WITH [...] OF OUTSIDE IMAGING FACILITY PERFORMING OUTSIDE IMAGING: [facility] EXAM(S) REVIEWED: 1. BILATERAL DIAGNOSTIC MAMMOGRAM WITH [...] images may or may not represent the [place] source data set and thus may contain changes which may lower the sensitivity of the second opinion interpretation. Dictated by: Richard Vu M.D. The radiology attending physician has personally reviewed this study, and had reviewed and/or edited this written report and agrees with it. Electronically signed by: Rocio Sandy M.D. Esther Lucero MD PhD IMG MAMMO PROCEDURES Final Result documented in this encounter Visit Diagnoses Diagnosis Abnormal mammogram of left breast documented in this encounter Care Teams Hr Business Partner Consultant Relationship Specialty Start Date End Date Zain Aguirre MD [address] [place], [place] [id number] PCP - General Internal Medicine 07/08/19 08/12/19 documented as of this encounter
--- OUTSIDE RECORDS SUMMARY | 2024-06-24 17:57 | XMS_ITS | Encounter Summary ---
Author Organization [facility] Address [address] [place] [address] Phone Care Team Providers Care Ux Design Lead Name Role Phone Christine Alex MD Primary Care Provider + Reason for Visit * Reason Comments Consult * Consultation (Routine) - Closed Specialty Diagnoses / Procedures Referred By Contac t Referred To Contact Surgical Oncology Diagnoses Abnormal mammogram of left breast Christine Alex MD Phone: tel: fax: [facility] (All Locations) Referral ID Status Reason Start Date Expiration Date V isits Requested Visits Authorized [id number] Closed Specialty Services Required 08/03/2019 02/11/[phone] Encounter Details Date Type Department Care Team (Late st Contact Info) Description 08/13/2019 1:40 PM DIESEL CRANE OPERATOR Office Visit [facility] Surgery [facility] 5th [place] [address] [place] [id number] Ro Langley, [place] [id number] [address] Abnormal mammogram of left breast Social History Tobacco Use Types Packs/Day Years Used Date Smoking Tobacco: Never Comments No Sex and Gender Information Value Date Recorded Sex Assigned at Not on file Legal Sex Female 12:41 PM DIESEL CRANE OPERATOR Gender Identity Not on file Sexual Orientation Not on file documented as of this encounter Last Filed Vital Signs Vital Sign Reading Time Taken Comments Blood Pressure - - Pulse - - Temperature - - Respiratory Rate - - Oxygen Saturation - - Inhaled Oxygen Concentration - - Weight 61.2 kg (135 lb) 08/13/2019 1:51 PM DIESEL CRANE OPERATOR Height 157.5 cm (5' 2 ) 08/13/2019 1:51 PM DIESEL CRANE OPERATOR Body Mass Index 24.69 08/13/2019 1:51 PM DIESEL CRANE OPERATOR documented in this encounter Progress Notes * Ro Langley, MARINE EQUIPMENT RESEARCH ENGINEER - 08/13/2019 1:40 PM CST PATIENT NAME: Rubi Barnett DATE OF : 1940 DATE OF OFFICE VISIT: 08/13/2019 REFERRING MD: Christine Alex MD A consultation was requested by Christine Alex MD for abnormal imaging. CHIEF COMPLAINT: Rubi Barnett is a 79 y.o. female with chief complaint of abnormal imaging. HPI: The patient is a 79 y.o. female who went for routine screening mammograms on 05/09/2019 at [facility] where they noted multiple circumscribed masses in the left breast. She then return for diagnostic imaging on 06/26/2019 as well as an ultrasound which demonstrated 2 simple cysts as well as aheterogeneous mass. They recommended ultrasound-guided biopsy for the heterogeneous mass. Dr. Alex requested that we see this patient in consultation for evaluation of this finding. The patient notes no palpable findings on her breast self-examination. She denies any change in the size of her breast, the shape of her breast or the appearance of her breast. She denies any nipple changes or nipple discharge. PAST MEDICAL HISTORY: She has a past medical history of Depression, Itchy scalp, and Osteoporosis. PAST SURGICAL HISTORY: She has a past surgical history that includes Appendectomy; Ankle surgery (Left); and Finger surgery (2018). MEDICATIONS: She has a current medication list which includes the following prescription(s): alendronate, clobetasol, and premarin. ALLERGIES: She is allergic to codeine. FAMILY HISTORY: Her family history includes Colon cancer in her father's sister and maternal grandfather; Skin cancer (age of onset: 91) in her father. SOCIAL HISTORY: She reports that she has never smoked. She does not have any smokeless tobacco history on file. No history on file for alcohol and drug. I have reviewed the patients health history sheet signed and placed in the chart today. REVIEW OF SYSTEMS: GENERAL: Denies fevers, chills or malaise. SKIN: No concerning lesions or skin changes noted on face, neck or trunk. NOSE AND THROAT: Mucosal membranes intact. EYES: Extraocular movements intact. Sclerae - no jaundice. NECK; Denies neck masses, or difficulty swallowing. RESPIRATORY: Denies cough, sputum, hemoptysis, TB, pneumonia. CARDIAC: Denies chest pain, palpitations, dyspnea, orthopnea. GASTROINTESTINAL: Denies nausea, dyspepsia, vomiting, vomiting of blood, rectal bleeding or black/tarry stools. URINARY: Denies polyuria, dysuria, nocturia, infections. VASCULAR: Denies intermittent claudication, leg cramps, thrombophlebitis. Denies DVT, PE. MUSCULOSKELETAL: No evidence of rib, long bone or spine pain. NEUROLOGIC: Denies recent fainting, blackouts, seizures, paralysis, tremors, stroke. HEMATOLOGIC: Denies easy bruising or bleeding, past transfusion reactions. PHYSICAL EXAMINATION: General: Well-developed, well-nourished who is in no apparent distress. Eyes: PERRLA, EOM intact. HEENT: NC/AT, sclerae anicteric. Neck: Supple, without thyromegaly or adenopathy. Respiratory: No shortness of breath noted. Cardiovascular: Regular rate and rhythm. Gastrointestinal: Soft, nontender, nondistended, without obvious masses. Extremities: No edema or cyanosis. Musculoskeletal: Normal range of motion. Neurological examination: Alert and oriented x 3, otherwise grossly nonfocal. Skin/Soft Tissue: No appreciable cervical, supraclavicular, axillary, or inguinal adenopathy. Breast: Examination of the breasts in the upright and supine positions reveal she has no mass, nipple discharge, palpable axillary mass, skin changes, skin dimpling or abnormalities noted in either breast. LABORATORY: None RADIOLOGY: She underwent left breast ultrasound performed at our institution today which demonstrated: ULTRASOUND FINDINGS: The reported triangular hypoechoic area [...] 19 mm and 16 mm maximally, respectively. ? IMPRESSION: The 2 previously reported suspicious areas represent fibroglandular tissue and ligamentous shadowing. 2 additional cysts are demonstrated. ? OVERALL FINAL ASSESSMENT: BI-RADS Category 2: Benign. ?? PATHOLOGY: None IMPRESSION: Patient with nonpalpable findings by imaging consistent with fibroglandular tissue. PLAN: She is going to continue to monitor her breast exam will notify us immediately if she identifies any changes or problems. She is going to obtain a mammogram in 1 year. We will be happy to see her back as needed. Ro Langley, MSN, COATER- Endocrine and Oncology Surgery I have reviewed the history, physical, clinical exam, social and surgical history and I concur withthe findings. Esther Lucero M.D. egg caser Oncology Surgery Cosigned by Esther Lucero MD PhD at 08/20/2019 5:52 PM DIESEL CRANE OPERATOR EL CRANE OPERATOR EL CRANE OPERATOR documented in this encounter Plan of Treatment Not on file documented as of this encounter Visit Diagnoses Diagnosis Abnormal mammogram of left breast documented in this encounter Historical Medications * This list may reflect changes made after this encounter. clobetasoL (TEMOVATE) 0.05 % external solution 07/23/2019 Premarin vaginal cream 07/08/2019 alendronate (FOSAMAX) 70 mg tablet TK 1 T PO Q WEEK 07/20/2019 added in this encounter Orders Outpatient Referral Count Last Ordered Date Fir st Ordered Date AMB REFERRAL TO SURGICAL ONCOLOGY 1 020 documented in this encounter Care Teams Ux Design Lead Relationship Specialty Start Date End Date Christine Alex MD PCP - General Obstetrics and Gynecology 08/13/19 documented as of this encounter
--- OUTSIDE RECORDS SUMMARY | 2024-06-24 17:57 | XMS_ITS | Encounter Summary ---
Author Organization [facility] Healthcare Address [address] [place] [address] Care Team Providers Care Mud Analysis Supervisor Name Role Phone Zain Aguirre MD Primary Care Provider [phone] Encounter Details Date Type Department Care Team (Latest Contact Info) Description 08/10/2019 5:26 PM AIRCRAFT INSPECTION RECORD CLERK - 08/10/2019 5:33 PM AIRCRAFT INSPECTION RECORD CLERK Hospital Encounter [facility]) [address] [place] [phone] Discharge Disposition: Discharge to home or self care Social History Tobacco Use Types Packs/Day Years Used Date Smoking Tobacco: Never Assessed Comments Unknown Sex and Gender Information Value Date Recorded Sex Assigned at Not on file Legal Sex Female 12:41 PM AIRCRAFT INSPECTION RECORD CLERK Gender Identity Not on file Sexual Orientation [...] Comments BREAST IMAGING OUTSIDE REFERENCE Routine 08/10/2019 5:26 PM AIRCRAFT INSPECTION RECORD CLERK Abnormal mammogram of left breast documented in this encounter Results * Breast Imaging Outside Reference (08/10/2019 5:26 PM AIRCRAFT INSPECTION RECORD CLERK) Impressions [facility] - 08/10/2019 5:26 PM AIRCRAFT INSPECTION RECORD CLERK These images are for Reference purposes only and have not been reviewed by [facility] Radiology. ??There will be no report generated by a [facility] Radiologist. Narrative RAD_MAMMO_[facility] - 08/10/2019 5:26 PM AIRCRAFT INSPECTION RECORD CLERK EXAMINATION: ??Images For Reference Purposes Only Esther Lucero MD PhD IMG MAMMO PROCEDURES Final Result RAD_MAMMO_[facility] documented in this encounter Visit Diagnoses Not on filedocumented in this encounter Care Teams Mud Analysis Supervisor Relationship Specialty Start Date End Date Zain Aguirre MD [address] [place], [place] [phone] PCP - General Internal Medicine 07/08/19 08/12/19 documented as of this encounter
--- OUTSIDE RECORDS SUMMARY | 2024-06-24 17:57 | XMS_ITS | Encounter Summary ---
Author Organization [facility] Healthcare Address [address] [place] [address] Care Team Providers Care Remote Sensing Specialist Name Role Phone Zain Aguirre MD Primary Care Provider [phone] Encounter Details Date Type Department Care Team (Latest Contact Info) Description 08/10/2019 4:51 PM TRAFFIC SURVEY TECHNICIAN - 08/10/2019 5:25 PM TRAFFIC SURVEY TECHNICIAN Hospital Encounter [facility]) [address] [place] [address] [phone] Discharge Disposition: Discharge to home or self care Social History Tobacco Use Types Packs/Day Years Used Date Smoking Tobacco: Never Assessed Comments Unknown Sex and Gender Information Value Date Recorded Sex Assigned at Not on file Legal Sex Female 12:41 PM TRAFFIC SURVEY TECHNICIAN Gender Identity Not on file Sexual Orientation [...] IMAGING OUTSIDE REFERENCE Routine 08/10/2019 4:51 PM TRAFFIC SURVEY TECHNICIAN documented in this encounter Results * Breast Imaging Outside Reference (08/10/2019 4:51 PM TRAFFIC SURVEY TECHNICIAN) Impressions RAD_MAMMO_[facility] - 08/10/2019 4:51 PM TRAFFIC SURVEY TECHNICIAN These images are for Reference purposes only and have not been reviewed by [facility] Radiology. ??There will be no report generated by a [facility] Radiologist. Narrative RAD_MAMMO_[facility] - 08/10/2019 4:51 PM TRAFFIC SURVEY TECHNICIAN EXAMINATION: ??Images For Reference Purposes Only us Esther Lucero MD PhD IMG MAMMO PROCEDURES Final Result [facility]MAM[facility] documented in this encounter Visit Diagnoses Not on filedocumented in this encounter Care Teams Remote Sensing Specialist Relationship Specialty Start Date End Date Zain Aguirre MD [address] [place] [address] [phone] PCP - General Internal Medicine 07/08/19 08/12/19 documented as of this encounter
--- OUTSIDE RECORDS SUMMARY | 2024-06-24 17:57 | XMS_ITS | Encounter Summary ---
Author Organization [facility] Healthcare Address [address] [place] [address] Care Team Providers Care Bingo Clerk Name Role Phone Zain Aguirre MD Primary Care Provider [phone] Encounter Details Date Type Department Care Team (Latest Contact Info) Description 08/10/2019 4:51 PM MEAT LUGGER - 08/10/2019 5:25 PM MEAT LUGGER Hospital Encounter [facility]) [address] [place] [phone] Discharge Disposition: Discharge to home or self care Social History Tobacco Use Types Packs/Day Years Used Date Smoking Tobacco: Never Assessed Comments Unknown Sex and Gender Information Value Date Recorded Sex Assigned at Not on file Legal Sex Female 12:41 PM MEAT LUGGER Gender Identity Not on file Sexual Orientation [...] IMAGING OUTSIDE REFERENCE Routine 08/10/2019 4:51 PM MEAT LUGGER documented in this encounter Results * Breast Imaging Outside Reference (08/10/2019 4:51 PM MEAT LUGGER) Impressions RAD_MAMMO_[facility] - 08/10/2019 4:51 PM MEAT LUGGER These images are for Reference purposes only and have not been reviewed by [facility] Radiology. ??There will be no report generated by a [facility] Radiologist. Narrative RAD_MAMMO_[facility] - 08/10/2019 4:51 PM MEAT LUGGER EXAMINATION: ??Images For Reference Purposes Only us Esther Lucero MD PhD IMG MAMMO PROCEDURES Final Result [facility]MAM[facility] documented in this encounter Visit Diagnoses Not on filedocumented in this encounter Care Teams Bingo Clerk Relationship Specialty Start Date End Date Zain Aguirre MD [address] [place] [address] [phone] PCP - General Internal Medicine 07/08/19 08/12/19 documented as of this encounter
--- OUTSIDE RECORDS SUMMARY | 2024-06-24 17:57 | XMS_ITS | Encounter Summary ---
Author Organization [facility] Healthcare Address [address] [place] [address] Care Team Providers Care Tower Attendant Name Role Phone Zain Aguirre MD Primary Care Provider [phone] Encounter Details Date Type Department Care Team (Latest Contact Info) Description 08/10/2019 4:51 PM CONTAINER COORDINATOR - 08/10/2019 5:25 PM CONTAINER COORDINATOR Hospital Encounter [facility]iology [facility]) [address] [place] [phone] Discharge Disposition: Discharge to home or self care Social History Tobacco Use Types Packs/Day Years Used Date Smoking Tobacco: Never Assessed Comments Unknown Sex and Gender Information Value Date Recorded Sex Assigned at Not on file Legal Sex Female 12:41 PM CONTAINER COORDINATOR Gender Identity Not on file Sexual Orientation [...] IMAGING OUTSIDE REFERENCE Routine 08/10/2019 4:51 PM CONTAINER COORDINATOR documented in this encounter Results * Breast Imaging Outside Reference (08/10/2019 4:51 PM CONTAINER COORDINATOR) Impressions RAD_MAMMO_[facility] - 08/10/2019 4:51 PM CONTAINER COORDINATOR These images are for Reference purposes only and have not been reviewed by [facility] Radiology. ??There will be no report generated by a [facility] Radiologist. Narrative RAD_MAMMO_[facility] - 08/10/2019 4:51 PM CONTAINER COORDINATOR EXAMINATION: ??Images For Reference Purposes Only us Esther Lucero MD PhD IMG MAMMO PROCEDURES Final Result [facility]_MAMMO[facility] documented in this encounter Visit Diagnoses Not on filedocumented in this encounter Care Teams Tower Attendant Relationship Specialty Start Date End Date Zain Aguirre MD [address] [place] [address] [phone] PCP - General Internal Medicine 07/08/19 08/12/19 documented as of this encounter
--- OUTSIDE RECORDS SUMMARY | 2024-06-24 17:57 | XMS_ITS | Encounter Summary ---
Author Organization [facility] Healthcare Address [address] [place] [address] Care Team Providers Care Hot Strip Mill Supervisor Name Role Phone Zain Aguirre MD Primary Care Provider [phone] Encounter Details Date Type Department Care Team (Latest Contact Info) Description 08/10/2019 4:51 PM NEUROPSYCHOLOGY SERVICE DIRECTOR - 08/10/2019 5:25 PM NEUROPSYCHOLOGY SERVICE DIRECTOR Hospital Encounter [facility] [address] [place] [address] [phone] Discharge Disposition: Discharge to home or self care Social History Tobacco Use Types Packs/Day Years Used Date Smoking Tobacco: Never Assessed Comments Unknown Sex and Gender Information Value Date Recorded Sex Assigned at Not on file Legal Sex Female 12:41 PM NEUROPSYCHOLOGY SERVICE DIRECTOR Gender Identity Not on file Sexual Orientation [...] IMAGING OUTSIDE REFERENCE Routine 08/10/2019 4:51 PM NEUROPSYCHOLOGY SERVICE DIRECTOR documented in this encounter Results * Breast Imaging Outside Reference (08/10/2019 4:51 PM NEUROPSYCHOLOGY SERVICE DIRECTOR) Impressions RAD_MAMMO_[facility] - 08/10/2019 4:51 PM NEUROPSYCHOLOGY SERVICE DIRECTOR These images are for Reference purposes only and have not been reviewed by [facility] Radiology. ??There will be no report generated by a [facility] Radiologist. Narrative RAD_MAMMO_[facility] - 08/10/2019 4:51 PM NEUROPSYCHOLOGY SERVICE DIRECTOR EXAMINATION: ??Images For Reference Purposes Only us Esther Lucero MD PhD IMG MAMMO PROCEDURES Final Result [facility]_MAMMO[facility] documented in this encounter Visit Diagnoses Not on filedocumented in this encounter Care Teams Hot Strip Mill Supervisor Relationship Specialty Start Date End Date Zain Aguirre MD [address] [place] [address] [phone] PCP - General Internal Medicine 07/08/19 08/12/19 documented as of this encounter
--- OUTSIDE RECORDS SUMMARY | 2024-06-24 17:57 | XMS_ITS | Encounter Summary ---
Author Organization [facility] Healthcare Address [address] [place] [address] Care Team Providers Care Manager Biologics Name Role Phone Zain Aguirre MD Primary Care Provider [phone] Encounter Details Date Type Department Care Team (Latest Contact Info) Description 08/10/2019 4:51 PM 3RD GRADE READING TEACHER - 08/10/2019 5:25 PM 3RD GRADE READING TEACHER Hospital Encounter [facility]iology [facility] [address] [place] [address] [phone] Discharge Disposition: Discharge to home or self care Social History Tobacco Use Types Packs/Day Years Used Date Smoking Tobacco: Never Assessed Comments Unknown Sex and Gender Information Value Date Recorded Sex Assigned at Not on file Legal Sex Female 12:41 PM 3RD GRADE READING TEACHER Gender Identity Not on file Sexual Orientation [...] IMAGING OUTSIDE REFERENCE Routine 08/10/2019 4:51 PM 3RD GRADE READING TEACHER documented in this encounter Results * Breast Imaging Outside Reference (08/10/2019 4:51 PM 3RD GRADE READING TEACHER) Impressions RAD_MAMMO_[facility] - 08/10/2019 4:51 PM 3RD GRADE READING TEACHER These images are for Reference purposes only and have not been reviewed by [facility] Radiology. ??There will be no report generated by a [facility] Radiologist. Narrative RAD_MAMMO_[facility] - 08/10/2019 4:51 PM 3RD GRADE READING TEACHER EXAMINATION: ??Images For Reference Purposes Only us Esther Lucero MD PhD IMG MAMMO PROCEDURES Final Result [facility]_MAMMO[facility] documented in this encounter Visit Diagnoses Not on filedocumented in this encounter Care Teams Manager Biologics Relationship Specialty Start Date End Date Zain Aguirre MD [address] [place] [address] [phone] PCP - General Internal Medicine 07/08/19 08/12/19 documented as of this encounter
--- OUTSIDE RECORDS SUMMARY | 2024-06-24 17:57 | XMS_ITS | Encounter Summary ---
Author Organization [facility] Healthcare Address [address] [place] [address] Care Team Providers Care Lozenge Maker Helper Name Role Phone Zain Aguirre MD Primary Care Provider [phone] Encounter Details Date Type Department Care Team (Latest Contact Info) Description 08/10/2019 4:51 PM EVP GENERAL COUNSEL - 08/10/2019 5:25 PM EVP GENERAL COUNSEL Hospital Encounter [facility]iology [facility] [address] [place] [address] [phone] Discharge Disposition: Discharge to home or self care Social History Tobacco Use Types Packs/Day Years Used Date Smoking Tobacco: Never Assessed Comments Unknown Sex and Gender Information Value Date Recorded Sex Assigned at Not on file Legal Sex Female 12:41 PM EVP GENERAL COUNSEL Gender Identity Not on file Sexual Orientation [...] IMAGING OUTSIDE REFERENCE Routine 08/10/2019 4:51 PM EVP GENERAL COUNSEL documented in this encounter Results * Breast Imaging Outside Reference (08/10/2019 4:51 PM EVP GENERAL COUNSEL) Impressions RAD_MAMMO_[facility] - 08/10/2019 4:51 PM EVP GENERAL COUNSEL These images are for Reference purposes only and have not been reviewed by [facility] Radiology. ??There will be no report generated by a [facility] Radiologist. Narrative RAD_MAMMO_[facility] - 08/10/2019 4:51 PM EVP GENERAL COUNSEL EXAMINATION: ??Images For Reference Purposes Only us Esther Lucero MD PhD IMG MAMMO PROCEDURES Final Result [facility]_MAMMO[facility] documented in this encounter Visit Diagnoses Not on filedocumented in this encounter Care Teams Lozenge Maker Helper Relationship Specialty Start Date End Date Zain Aguirre MD [address] [place] [address] [phone] PCP - General Internal Medicine 07/08/19 08/12/19 documented as of this encounter
--- OUTSIDE RECORDS SUMMARY | 2024-06-24 17:57 | XMS_ITS | Encounter Summary ---
Author Organization [facility] Healthcare Address [address] [place] [address] Care Team Providers Care Associate Scientist Name Role Phone Zain Aguirre MD Primary Care Provider [phone] Encounter Details Date Type Department Care Team (Latest Contact Info) Description 08/10/2019 4:51 PM SCHOOL CLERK - 08/10/2019 5:25 PM SCHOOL CLERK Hospital Encounter [facility]iology [facility] [address] [place] [address] [phone] Discharge Disposition: Discharge to home or self care Social History Tobacco Use Types Packs/Day Years Used Date Smoking Tobacco: Never Assessed Comments Unknown Sex and Gender Information Value Date Recorded Sex Assigned at Not on file Legal Sex Female 12:41 PM SCHOOL CLERK Gender Identity Not on file Sexual [...] IMAGING OUTSIDE REFERENCE Routine 08/10/2019 4:51 PM SCHOOL CLERK documented in this encounter Results * Breast Imaging Outside Reference (08/10/2019 4:51 PM SCHOOL CLERK) Impressions RAD_MAMMO_[facility] - 08/10/2019 4:51 PM SCHOOL CLERK These images are for Reference purposes only and have not been reviewed by [facility] Radiology. ??There will be no report generated by a [facility] Radiologist. Narrative RAD_MAMMO_[facility] - 08/10/2019 4:51 PM SCHOOL CLERK EXAMINATION: ??Images For Reference Purposes Only us Esther Lucero MD PhD IMG MAMMO PROCEDURES Final Result [facility]_MAMMO[facility] documented in this encounter Visit Diagnoses Not on filedocumented in this encounter Care Teams Associate Scientist Relationship Specialty Start Date End Date Zain Aguirre MD [address] [place] [address] [phone] PCP - General Internal Medicine 07/08/19 08/12/19 documented as of this encounter
--- OUTSIDE RECORDS SUMMARY | 2024-06-24 17:57 | XMS_ITS | Encounter Summary ---
Author Organization [facility] Healthcare Address [address] [place] [address] 19306 Care Team Providers Care Senior Technical Project Manager Name Role Phone Zain Aguirre MD Primary Care Provider [phone] Encounter Details Date Type Department Care Team (Latest Contact Info) Description 08/10/2019 4:51 PM ORTHOPEDIC SURGEON - 08/10/2019 5:25 PM ORTHOPEDIC SURGEON Hospital Encounter [facility]) [address] [place] [address] [phone] Discharge Disposition: Discharge to home or self care Social History Tobacco Use Types Packs/Day Years Used Date Smoking Tobacco: Never Assessed Comments Unknown Sex and Gender Information Value Date Recorded Sex Assigned at Not on file Legal Sex Female 12:41 PM ORTHOPEDIC SURGEON Gender Identity Not on file Sexual Orientation [...] IMAGING OUTSIDE REFERENCE Routine 08/10/2019 4:51 PM ORTHOPEDIC SURGEON documented in this encounter Results * Breast Imaging Outside Reference (08/10/2019 4:51 PM ORTHOPEDIC SURGEON) Impressions RAD_MAMMO_BJ - 08/10/2019 4:51 PM ORTHOPEDIC SURGEON These images are for Reference purposes only and have not been reviewed by [facility] Radiology. ??There will be no report generated by a [facility] Radiologist. Narrative RAD_MAMMO_[facility] - 08/10/2019 4:51 PM ORTHOPEDIC SURGEON EXAMINATION: ??Images For Reference Purposes Only us Esther Lucero MD PhD IMG MAMMO PROCEDURES Final Result RAD_MAMMO_[facility] documented in this encounter Visit Diagnoses Not on filedocumented in this encounter Care Teams Senior Technical Project Manager Relationship Specialty Start Date End Date Zain Aguirre MD [address] [place] [address] [phone] PCP - General Internal Medicine 07/08/19 08/12/19 documented as of this encounter
--- OUTSIDE RECORDS SUMMARY | 2024-06-24 17:57 | XMS_ITS | Encounter Summary ---
Author Organization [facility] Healthcare Address [address] [place] [address] 98[address] Care Team Providers Care Master Black Belt Name Role Phone Zain Aguirre MD Primary Care Provider [phone] Encounter Details Date Type Department Care Team (Latest Contact Info) Description 08/10/2019 4:51 PM PROSTHETIC TECHNICIAN - 08/10/2019 5:25 PM PROSTHETIC TECHNICIAN Hospital Encounter [facility] [address] [place] [address] [phone] Discharge Disposition: Discharge to home or self care Social History Tobacco Use Types Packs/Day Years Used Date Smoking Tobacco: Never Assessed Comments Unknown Sex and Gender Information Value Date Recorded Sex Assigned at Not on file Legal Sex Female 12:41 PM PROSTHETIC TECHNICIAN Gender Identity Not on file Sexual [...] IMAGING OUTSIDE REFERENCE Routine 08/10/2019 4:51 PM PROSTHETIC TECHNICIAN documented in this encounter Results * Breast Imaging Outside Reference (08/10/2019 4:51 PM PROSTHETIC TECHNICIAN) Impressions RAD_MAMMO_BJ - 08/10/2019 4:51 PM PROSTHETIC TECHNICIAN These images are for Reference purposes only and have not been reviewed by [facility] Radiology. ??There will be no report generated by a [facility] Radiologist. Narrative RAD_MAMMO_[facility] - 08/10/2019 4:51 PM PROSTHETIC TECHNICIAN EXAMINATION: ??Images For Reference Purposes Only us Esther Lucero MD PhD IMG MAMMO PROCEDURES Final Result RAD_MAMMO_[facility] documented in this encounter Visit Diagnoses Not on filedocumented in this encounter Care Teams Master Black Belt Relationship Specialty Start Date End Date Zain Aguirre MD [address] [place] [address] [phone] PCP - General Internal Medicine 07/08/19 08/12/19 documented as of this encounter
--- OUTSIDE RECORDS SUMMARY | 2024-06-24 19:54 | XMS_ITS | Encounter Summary ---
Author Organization [facility] Healthcare Address [address] [place] [address] Care Team Providers Care Ged Preparation Teacher Name Role Phone Zain Aguirre MD Primary Care Provider [phone] Encounter Details Date Type Department Care Team (Latest Contact Info) Description 08/10/2019 4:51 PM INCOME TAX AUDITOR - 08/10/2019 5:25 PM INCOME TAX AUDITOR Hospital Encounter [facility]) [address] [place] [address] [phone] Discharge Disposition: Discharge to home or self care Social History Tobacco Use Types Packs/Day Years Used Date Smoking Tobacco: Never Assessed Comments Unknown Sex and Gender Information Value Date Recorded Sex Assigned at Not on file Legal Sex Female 12:41 PM INCOME TAX AUDITOR Gender Identity Not on file Sexual Orientation [...] IMAGING OUTSIDE REFERENCE Routine 08/10/2019 4:51 PM INCOME TAX AUDITOR documented in this encounter Results * Breast Imaging Outside Reference (08/10/2019 4:51 PM INCOME TAX AUDITOR) Impressions RAD_MAMMO_BJ - 08/10/2019 4:51 PM INCOME TAX AUDITOR These images are for Reference purposes only and have not been reviewed by [facility] Radiology. ??There will be no report generated by a [facility] Radiologist. Narrative RAD_MAMMO_[facility] - 08/10/2019 4:51 PM INCOME TAX AUDITOR EXAMINATION: ??Images For Reference Purposes Only us Esther Lucero MD PhD IMG MAMMO PROCEDURES Final Result RAD_MAMMO_[facility] documented in this encounter Visit Diagnoses Not on filedocumented in this encounter Care Teams Ged Preparation Teacher Relationship Specialty Start Date End Date Zain Aguirre MD [address] [place] [address] [phone] PCP - General Internal Medicine 07/08/19 08/12/19 documented as of this encounter
--- OUTSIDE RECORDS SUMMARY | 2024-06-24 19:54 | XMS_ITS | Encounter Summary ---
Author Organization [facility] Healthcare Address [address] [place] [address] Care Team Providers Care Actuarial Intern Name Role Phone Zain Aguirre MD Primary Care Provider [phone] Encounter Details Date Type Department Care Team (Latest Contact Info) Description 08/10/2019 4:51 PM WINDOW INSTALLER - 08/10/2019 5:25 PM WINDOW INSTALLER Hospital Encounter [facility] [address] [place] [address] [phone] Discharge Disposition: Discharge to home or self care Social History Tobacco Use Types Packs/Day Years Used Date Smoking Tobacco: Never Assessed Comments Unknown Sex and Gender Information Value Date Recorded Sex Assigned at Not on file Legal Sex Female 12:41 PM WINDOW INSTALLER Gender Identity Not on file Sexual Orientation [...] IMAGING OUTSIDE REFERENCE Routine 08/10/2019 4:51 PM WINDOW INSTALLER documented in this encounter Results * Breast Imaging Outside Reference (08/10/2019 4:51 PM WINDOW INSTALLER) Impressions RAD_MAMMO_BJ - 08/10/2019 4:51 PM WINDOW INSTALLER These images are for Reference purposes only and have not been reviewed by [facility] Radiology. ??There will be no report generated by a [facility] Radiologist. Narrative RAD_MAMMO_[facility] - 08/10/2019 4:51 PM WINDOW INSTALLER EXAMINATION: ??Images For Reference Purposes Only us Esther Lucero MD PhD IMG MAMMO PROCEDURES Final Result RAD_MAMMO_[facility] documented in this encounter Visit Diagnoses Not on filedocumented in this encounter Care Teams Actuarial Intern Relationship Specialty Start Date End Date Zain Aguirre MD [address] [place] [address] [phone] PCP - General Internal Medicine 07/08/19 08/12/19 documented as of this encounter
--- OUTSIDE RECORDS SUMMARY | 2024-06-24 19:54 | XMS_ITS | Encounter Summary ---
Author Organization [facility] Healthcare Address [address] [place] [address] Care Team Providers Care Hop Strainer Name Role Phone Zain Aguirre MD Primary Care Provider [phone] Encounter Details Date Type Department Care Team (Latest Contact Info) Description 08/10/2019 4:51 PM SURGICAL FORCEPS FABRICATOR - 08/10/2019 5:25 PM SURGICAL FORCEPS FABRICATOR Hospital Encounter [facility] [address] [place] [address] [phone] Discharge Disposition: Discharge to home or self care Social History Tobacco Use Types Packs/Day Years Used Date Smoking Tobacco: Never Assessed Comments Unknown Sex and Gender Information Value Date Recorded Sex Assigned at Not on file Legal Sex Female 12:41 PM SURGICAL FORCEPS FABRICATOR Gender Identity Not on file Sexual Orientation [...] IMAGING OUTSIDE REFERENCE Routine 08/10/2019 4:51 PM SURGICAL FORCEPS FABRICATOR documented in this encounter Results * Breast Imaging Outside Reference (08/10/2019 4:51 PM SURGICAL FORCEPS FABRICATOR) Impressions RAD_MAMMO_BJ - 08/10/2019 4:51 PM SURGICAL FORCEPS FABRICATOR These images are for Reference purposes only and have not been reviewed by [facility] Radiology. ??There will be no report generated by a [facility] Radiologist. Narrative RAD_MAMMO_[facility] - 08/10/2019 4:51 PM SURGICAL FORCEPS FABRICATOR EXAMINATION: ??Images For Reference Purposes Only us Esther Lucero MD PhD IMG MAMMO PROCEDURES Final Result RAD_MAMMO_[facility] documented in this encounter Visit Diagnoses Not on filedocumented in this encounter Care Teams Hop Strainer Relationship Specialty Start Date End Date Zain Aguirre MD [address] [place] [address] [phone] PCP - General Internal Medicine 07/08/19 08/12/19 documented as of this encounter
--- OUTSIDE RECORDS SUMMARY | 2024-06-24 19:54 | XMS_ITS | Encounter Summary ---
Author Organization [facility] Healthcare Address [address] [place] [address] 20705 Care Team Providers Care Shovel Engineer Name Role Phone Zain Aguirre MD Primary Care Provider [phone] Encounter Details Date Type Department Care Team (Latest Contact Info) Description 08/10/2019 4:51 PM DIRECTOR FINANCIAL ANALYSIS - 08/10/2019 5:25 PM DIRECTOR FINANCIAL ANALYSIS Hospital Encounter [facility]) [address] [place] [address] [phone] Discharge Disposition: Discharge to home or self care Social History Tobacco Use Types Packs/Day Years Used Date Smoking Tobacco: Never Assessed Comments Unknown Sex and Gender Information Value Date Recorded Sex Assigned at Not on file Legal Sex Female 12:41 PM DIRECTOR FINANCIAL ANALYSIS Gender Identity Not on file Sexual Orientation [...] IMAGING OUTSIDE REFERENCE Routine 08/10/2019 4:51 PM DIRECTOR FINANCIAL ANALYSIS documented in this encounter Results * Breast Imaging Outside Reference (08/10/2019 4:51 PM DIRECTOR FINANCIAL ANALYSIS) Impressions RAD_MAMMO_BJ - 08/10/2019 4:51 PM DIRECTOR FINANCIAL ANALYSIS These images are for Reference purposes only and have not been reviewed by [facility] Radiology. ??There will be no report generated by a [facility] Radiologist. Narrative RAD_MAMMO_[facility]JH - 08/10/2019 4:51 PM DIRECTOR FINANCIAL ANALYSIS EXAMINATION: ??Images For Reference Purposes Only us Esther Lucero MD PhD IMG MAMMO PROCEDURES Final Result RAD_MAMMO_[facility] documented in this encounter Visit Diagnoses Not on filedocumented in this encounter Care Teams Shovel Engineer Relationship Specialty Start Date End Date Zain Aguirre MD [address] [place] [address] [phone] PCP - General Internal Medicine 07/08/19 08/12/19 documented as of this encounter
--- OUTSIDE RECORDS SUMMARY | 2024-06-24 19:54 | XMS_ITS | Encounter Summary ---
Author Organization [facility] Healthcare Address [address] [place] [address] Care Team Providers Care Ict Managers Name Role Phone Zain Aguirre MD Primary Care Provider [phone] Encounter Details Date Type Department Care Team (Latest Contact Info) Description 08/10/2019 4:51 PM POULTRY CUTTER - 08/10/2019 5:25 PM POULTRY CUTTER Hospital Encounter [facility] [address] [place] [address] [phone] Discharge Disposition: Discharge to home or self care Social History Tobacco Use Types Packs/Day Years Used Date Smoking Tobacco: Never Assessed Comments Unknown Sex and Gender Information Value Date Recorded Sex Assigned at Not on file Legal Sex Female 12:41 PM POULTRY CUTTER Gender Identity Not on file Sexual Orientation [...] IMAGING OUTSIDE REFERENCE Routine 08/10/2019 4:51 PM POULTRY CUTTER documented in this encounter Results * Breast Imaging Outside Reference (08/10/2019 4:51 PM POULTRY CUTTER) Impressions RAD_MAMMO_BJ - 08/10/2019 4:51 PM POULTRY CUTTER These images are for Reference purposes only and have not been reviewed by [facility] Radiology. ??There will be no report generated by a [facility] Radiologist. Narrative RAD_MAMMO_[facility]JH - 08/10/2019 4:51 PM POULTRY CUTTER EXAMINATION: ??Images For Reference Purposes Only us Esther Lucero MD PhD IMG MAMMO PROCEDURES Final Result RAD_MAMMO_[facility] documented in this encounter Visit Diagnoses Not on filedocumented in this encounter Care Teams Ict Managers Relationship Specialty Start Date End Date Zain Aguirre MD [address] [place] [address] [phone] PCP - General Internal Medicine 07/08/19 08/12/19 documented as of this encounter
--- OUTSIDE RECORDS SUMMARY | 2024-06-24 19:54 | XMS_ITS | Encounter Summary ---
Author Organization [facility] Healthcare Address [address] [place] [address] Care Team Providers Care Rn Transition Name Role Phone Christine Alex MD Primary Care Provider + Reason for Referral * Diagnostic Imaging (Routine) - Closed Specialty Diagnoses / Procedures Referred By Kathia dotson Referred To Contact Diagnoses Abnormal mammogram of left breast Procedures US Breast Left Limited Esther Lucero MD PhD Phone: tel: fax: [address] [phone] Referral ID Status Reason Start Date Expiration Date Visits Re quested Visits Authorized [id number] Closed 07/08/2019 01/16/2021 1 1 D LEADER Reason for Visit * Diagnostic Imaging (Routine) - Closed Specialty Diagnoses / Procedures Referred By Kathia dotson Referred To Contact Diagnoses Abnormal mammogram of left breast Procedures US Breast Left Limited Esther Lucero MD PhD Phone: tel: fax: [address] [phone] Referral ID Status Reason Start Date Expiration Date Visits Re quested Visits Authorized [id number] Closed 07/08/2019 01/16/2021 1 1 Encounter Details Date Type Department Care Team (Late st Contact Info) Description 08/13/2019 2:11 PM SQUAD LEADER - 08/13/2019 11:59 PM SQUAD LEADER Hospital Encounter [facility] [place] [address] Esther Lucero MD PhD [address] [phone] [place] [address] Abnormal mammogram of left breast Discharge Disposition: Discharge to home or self care Social History Tobacco Use Types Packs/Day Years Used Date Smoking Tobacco: Never Comments No Sex and Gender Information Value Date Recorded Sex Assigned at Not on file Legal Sex Female 12:41 PM SQUAD LEADER Gender Identity Not on file Sexual Orientation [...] Read Routine (OP Routine) 08/13/2019 3:23 PM SQUAD LEADER Abnormal mammogram of left breast documented in this encounter Results * US Breast Left Limited (08/13/2019 3:23 PM SQUAD LEADER) Anatomical Region Laterality Modality Breast Left Ultrasound 08/13/2019 3:32 PM SQUAD LEADER Impressions 08/13/2019 3:32 PM SQUAD LEADER The 2 previously reported suspicious areas represent fibroglandular tissue and ligamentous shadowing. ??2 additional cysts are demonstrated. OVERALL FINAL ASSESSMENT: BI-RADS Category 2: Benign. Annual screening mammography is recommended. Electronically signed by: Shahriar Palomares M.D. 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 Palomares. 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 Palomares. The right breast [...] breast documented in this encounter Care Teams Rn Transition Relationship Specialty Start Date End Date Christine Alex MD PCP - General Obstetrics and Gynecology 08/13/19 documented as of this encounter
--- OUTSIDE RECORDS SUMMARY | 2024-06-24 19:54 | XMS_ITS | Encounter Summary ---
Author Organization [facility] Healthcare Address [address] [place] [address] Care Team Providers Care Prize Jacker Name Role Phone Zain Aguirre MD Primary Care Provider [phone] Encounter Details Date Type Department Care Team (Latest Contact Info) Description 08/10/2019 5:26 PM FUSE MAKER - 08/10/2019 5:33 PM FUSE MAKER Hospital Encounter [facility] [address] [place] [address] [phone] Discharge Disposition: Discharge to home or self care Social History Tobacco Use Types Packs/Day Years Used Date Smoking Tobacco: Never Assessed Comments Unknown Sex and Gender Information Value Date Recorded Sex Assigned at Not on file Legal Sex Female 12:41 PM FUSE MAKER Gender Identity Not on file Sexual [...] IMAGING OUTSIDE REFERENCE Routine 08/10/2019 5:26 PM FUSE MAKER Abnormal mammogram of left breast documented in this encounter Results * Breast Imaging Outside Reference (08/10/2019 5:26 PM FUSE MAKER) Impressions RAD_MAMMO_[facility] - 08/10/2019 5:26 PM FUSE MAKER These images are for Reference purposes only and have not been reviewed by [facility] Radiology. ??There will be no report generated by a [facility] Radiologist. Narrative RAD_MAMMO_[facility] - 08/10/2019 5:26 PM FUSE MAKER EXAMINATION: ??Images For Reference Purposes Only Esther Lucero MD PhD IMG MAMMO PROCEDURES Final Result RAD_MAMMO_[facility] documented in this encounter Visit Diagnoses Not on filedocumented in this encounter Care Teams Prize Jacker Relationship Specialty Start Date End Date Zain Aguirre MD [address] [place], [place] [phone] PCP - General Internal Medicine 07/08/19 08/12/19 documented as of this encounter
--- OUTSIDE RECORDS SUMMARY | 2024-06-24 19:54 | XMS_ITS | Clinical Summary ---
Author Organization [facility] Address [address] [place] [phone] Care Team Providers Care Supervisor Hospitality House Name Role Phone Christine Alex MD Primary [...] on file Legal Sex Female 12:41 PM EXPORT TRAFFIC DEPARTMENT MANAGER Gender Identity Not on file Sexual Orientation Not on file Obstetrics History Last Filed Vital Signs Vital Sign Reading Time Taken Comments Blood Pressure - - Pulse - - Temperature - - Respiratory Rate - - Oxygen Saturation - - Inhaled Oxygen Concentration - - Weight 61.2 kg (135 lb) 08/13/2019 1:51 PM EXPORT TRAFFIC DEPARTMENT MANAGER Height 157.5 cm (5' 2 ) 08/13/2019 1:51 PM EXPORT TRAFFIC DEPARTMENT MANAGER Body Mass Index 24.69 08/13/2019 1:51 PM EXPORT TRAFFIC DEPARTMENT MANAGER Plan of Treatment Not on file Insurance [employer] Care Teams Supervisor Hospitality House Relationship Specialty Start Date End Date Christine Alex MD PCP - General Obstetrics and Gynecology 08/13/19
--- OUTSIDE RECORDS SUMMARY | 2024-06-24 19:54 | XMS_ITS | Encounter Summary ---
Author Organization [facility] Healthcare Address [address] [place] [address] Care Team Providers Care Home Service Director Name Role Phone Zain Aguirre MD Primary Care Provider [phone] Encounter Details Date Type Department Care Team (Latest Contact Info) Description 08/10/2019 4:51 PM OPERATIONS VICE PRESIDENT - 08/10/2019 5:25 PM OPERATIONS VICE PRESIDENT Hospital Encounter [facility] [address] [place] [address] [phone] Discharge Disposition: Discharge to home or self care Social History Tobacco Use Types Packs/Day Years Used Date Smoking Tobacco: Never Assessed Comments Unknown Sex and Gender Information Value Date Recorded Sex Assigned at Not on file Legal Sex Female 12:41 PM OPERATIONS VICE PRESIDENT Gender Identity Not on file Sexual Orientation [...] IMAGING OUTSIDE REFERENCE Routine 08/10/2019 4:51 PM OPERATIONS VICE PRESIDENT documented in this encounter Results * Breast Imaging Outside Reference (08/10/2019 4:51 PM OPERATIONS VICE PRESIDENT) Impressions RAD_MAMMO_BJ - 08/10/2019 4:51 PM OPERATIONS VICE PRESIDENT These images are for Reference purposes only and have not been reviewed by [facility] Radiology. ??There will be no report generated by a [facility] Radiologist. Narrative RAD_MAMMO_[facility] - 08/10/2019 4:51 PM OPERATIONS VICE PRESIDENT EXAMINATION: ??Images For Reference Purposes Only us Esther Lucero MD PhD IMG MAMMO PROCEDURES Final Result RAD_MAMMO_[facility] documented in this encounter Visit Diagnoses Not on filedocumented in this encounter Care Teams Home Service Director Relationship Specialty Start Date End Date Zain Aguirre MD [address] [place] [address] [phone] PCP - General Internal Medicine 07/08/19 08/12/19 documented as of this encounter
--- OUTSIDE RECORDS SUMMARY | 2024-06-24 19:54 | XMS_ITS | Encounter Summary ---
Author Organization [facility] Healthcare Address [address] [place] [address] Care Team Providers Care Ship Engineer Name Role Phone Zain Aguirre MD Primary Care Provider [phone] Encounter Details Date Type Department Care Team (Latest Contact Info) Description 08/10/2019 5:34 PM CATERER'S AIDE - 08/10/2019 11:59 PM CATERER'S AIDE Hospital Encounter [facility] [address] [place] [address] [phone] Abnormal mammogram of left breast Discharge Disposition: Discharge to home or self care Social History Tobacco Use Types Packs/Day Years Used Date Smoking Tobacco: Never Assessed Comments Unknown Sex and Gender Information Value Date Recorded Sex Assigned at Not on file Legal Sex Female 12:41 PM CATERER'S AIDE Gender Identity Not on file Sexual Orientation [...] IMAGING OUTSIDE CONSULT Routine 08/10/2019 5:34 PM CATERER'S AIDE Abnormal mammogram of left breast documented in this encounter Results * Breast Imaging Outside Consult (08/10/2019 5:34 PM CATERER'S AIDE) Anatomical Region Laterality Modality Breast N/A Mammography 08/11/2019 9:03 AM CATERER'S AIDE Impressions 08/11/2019 10:08 AM CATERER'S AIDE 1. ??Left breast benign-appearing oval mass at [...] images may or may not represent the ramona source data set and thus may contain changes which may lower the sensitivity of the second opinion interpretation. Dictated by: Richard Vu M.D. The radiology attending physician has personally reviewed this study, and had reviewed and/or edited this written report and agrees with it. Electronically signed by: oRcio Sandy M.D. Narrative 08/11/2019 10:08 AM CATERER'S AIDE EXAMINATION: REVIEW AND INTERPRETATION OF OUTSIDE IMAGING FACILITY PERFORMING OUTSIDE IMAGING: [facility] EXAM(S) REVIEWED: 1. ??BILATERAL DIAGNOSTIC MAMMOGRAM [...] OF OUTSIDE IMAGING FACILITY PERFORMING OUTSIDE IMAGING: [facility] EXAM(S) REVIEWED: 1. BILATERAL DIAGNOSTIC MAMMOGRAM [...] images may or may not represent the ramona source data set and thus may contain [...] breast documented in this encounter Care Teams Ship Engineer Relationship Specialty Start Date End Date Zain Aguirre MD [address] [place], [place] [phone] PCP - General Internal Medicine 07/08/19 08/12/19 documented as of this encounter
--- OUTSIDE RECORDS SUMMARY | 2024-06-24 19:54 | XMS_ITS | Encounter Summary ---
Author Organization [facility] Healthcare Address [address] [place] [address] Care Team Providers Care Yarn Winder Name Role Phone Zain Aguirre MD Primary Care Provider [phone] Encounter Details Date Type Department Care Team (Latest Contact Info) Description 08/10/2019 4:51 PM DATASTAGE ARCHITECT - 08/10/2019 5:25 PM DATASTAGE ARCHITECT Hospital Encounter [facility] [address] [place] [address] [phone] Discharge Disposition: Discharge to home or self care Social History Tobacco Use Types Packs/Day Years Used Date Smoking Tobacco: Never Assessed Comments Unknown Sex and Gender Information Value Date Recorded Sex Assigned at Not on file Legal Sex Female 12:41 PM DATASTAGE ARCHITECT Gender Identity Not on file Sexual Orientation [...] IMAGING OUTSIDE REFERENCE Routine 08/10/2019 4:51 PM DATASTAGE ARCHITECT documented in this encounter Results * Breast Imaging Outside Reference (08/10/2019 4:51 PM DATASTAGE ARCHITECT) Impressions RAD_MAMMO_BJ - 08/10/2019 4:51 PM DATASTAGE ARCHITECT These images are for Reference purposes only and have not been reviewed by [facility] Radiology. ??There will be no report generated by a [facility] Radiologist. Narrative RAD_MAMMO_BJH - 08/10/2019 4:51 PM DATASTAGE ARCHITECT EXAMINATION: ??Images For Reference Purposes Only us Esther Lucero MD PhD IMG MAMMO PROCEDURES Final Result RAD_MAMMO_BJH documented in this encounter Visit Diagnoses Not on filedocumented in this encounter Care Teams Yarn Winder Relationship Specialty Start Date End Date Zain Aguirre MD [address] [place] [address] [phone] PCP - General Internal Medicine 07/08/19 08/12/19 documented as of this encounter
--- OUTSIDE RECORDS SUMMARY | 2024-06-24 19:54 | XMS_ITS | Encounter Summary ---
Author Organization [facility] Healthcare Address [address] [place] [address] Care Team Providers Care Bit Shaver Name Role Phone Zain Aguirre MD Primary Care Provider [phone] Encounter Details Date Type Department Care Team (Latest Contact Info) Description 08/10/2019 4:51 PM DEVELOPMENT OFFICER - 08/10/2019 5:25 PM DEVELOPMENT OFFICER Hospital Encounter [facility] [address] [place] [address] [phone] Discharge Disposition: Discharge to home or self care Social History Tobacco Use Types Packs/Day Years Used Date Smoking Tobacco: Never Assessed Comments Unknown Sex and Gender Information Value Date Recorded Sex Assigned at Not on file Legal Sex Female 12:41 PM DEVELOPMENT OFFICER Gender Identity Not on file Sexual Orientation [...] IMAGING OUTSIDE REFERENCE Routine 08/10/2019 4:51 PM DEVELOPMENT OFFICER documented in this encounter Results * Breast Imaging Outside Reference (08/10/2019 4:51 PM DEVELOPMENT OFFICER) Impressions RAD_MAMMO_BJ - 08/10/2019 4:51 PM DEVELOPMENT OFFICER These images are for Reference purposes only and have not been reviewed by [facility] Radiology. ??There will be no report generated by a [facility] Radiologist. Narrative RAD_MAMMO_[facility] - 08/10/2019 4:51 PM DEVELOPMENT OFFICER EXAMINATION: ??Images For Reference Purposes Only us Esther Lucero MD PhD IMG MAMMO PROCEDURES Final Result RAD_MAMMO_[facility] documented in this encounter Visit Diagnoses Not on filedocumented in this encounter Care Teams Bit Shaver Relationship Specialty Start Date End Date Zain Aguirre MD [address] [place] [address] [id number] PCP - General Internal Medicine 07/08/19 08/12/19 documented as of this encounter
--- OUTSIDE RECORDS SUMMARY | 2024-06-24 19:54 | XMS_ITS | Encounter Summary ---
Author Organization [facility] Healthcare Address [address] [place] [address] Care Team Providers Care Personnel Placement Specialist Name Role Phone Zain Aguirre MD Primary Care Provider [phone] Encounter Details Date Type Department Care Team (Latest Contact Info) Description 08/10/2019 4:51 PM SURGICAL NURSE - 08/10/2019 5:25 PM SURGICAL NURSE Hospital Encounter [facility] [address] [place] [address] [phone] Discharge Disposition: Discharge to home or self care Social History Tobacco Use Types Packs/Day Years Used Date Smoking Tobacco: Never Assessed Comments Unknown Sex and Gender Information Value Date Recorded Sex Assigned at Not on file Legal Sex Female 12:41 PM SURGICAL NURSE Gender Identity Not on file Sexual Orientation [...] OUTSIDE REFERENCE Routine 08/10/2019 4:51 PM SURGICAL NURSE documented in this encounter Results * Breast Imaging Outside Reference (08/10/2019 4:51 PM SURGICAL NURSE) Impressions RAD_MAMMO_BJ - 08/10/2019 4:51 PM SURGICAL NURSE These images are for Reference purposes only and have not been reviewed by [facility] Radiology. ??There will be no report generated by a [facility] Radiologist. Narrative RAD_MAMMO_[facility] - 08/10/2019 4:51 PM SURGICAL NURSE EXAMINATION: ??Images For Reference Purposes Only us Esther Lucero MD PhD IMG MAMMO PROCEDURES Final Result RAD_MAMMO_[facility] documented in this encounter Visit Diagnoses Not on filedocumented in this encounter Care Teams Personnel Placement Specialist Relationship Specialty Start Date End Date Zain Aguirre MD [address] [place] [address] [phone] PCP - General Internal Medicine 07/08/19 08/12/19 documented as of this encounter
--- OUTSIDE RECORDS SUMMARY | 2024-06-24 19:54 | XMS_ITS | Encounter Summary ---
Author Organization [facility] Healthcare Address [address] [place] [address] Care Team Providers Care Sign Language Translator Name Role Phone Zain Aguirre MD Primary Care Provider [phone] Encounter Details Date Type Department Care Team (Latest Contact Info) Description 08/10/2019 4:51 PM THREADING MACHINE TENDER - 08/10/2019 5:25 PM THREADING MACHINE TENDER Hospital Encounter [facility] [address] [place] [address] [phone] Discharge Disposition: Discharge to home or self care Social History Tobacco Use Types Packs/Day Years Used Date Smoking Tobacco: Never Assessed Comments Unknown Sex and Gender Information Value Date Recorded Sex Assigned at Not on file Legal Sex Female 12:41 PM THREADING MACHINE TENDER Gender Identity Not on file Sexual Orientation [...] IMAGING OUTSIDE REFERENCE Routine 08/10/2019 4:51 PM THREADING MACHINE TENDER documented in this encounter Results * Breast Imaging Outside Reference (08/10/2019 4:51 PM THREADING MACHINE TENDER) Impressions RAD_MAMMO_BJ - 08/10/2019 4:51 PM THREADING MACHINE TENDER These images are for Reference purposes only and have not been reviewed by [facility] Radiology. ??There will be no report generated by a [facility] Radiologist. Narrative RAD_MAMMO_[facility] - 08/10/2019 4:51 PM THREADING MACHINE TENDER EXAMINATION: ??Images For Reference Purposes Only us Esther Lucero MD PhD IMG MAMMO PROCEDURES Final Result RAD_MAMMO_[facility] documented in this encounter Visit Diagnoses Not on filedocumented in this encounter Care Teams Sign Language Translator Relationship Specialty Start Date End Date Zain Aguirre MD [address] [place] [address] [phone] PCP - General Internal Medicine 07/08/19 08/12/19 documented as of this encounter
--- OUTSIDE RECORDS SUMMARY | 2024-06-24 19:54 | XMS_ITS | Encounter Summary ---
Author Organization [facility] Address [address] [place] [address] Phone Care Team Providers Care Chief Merchandising Officer Name Role Phone Christine Alex MD Primary Care Provider + Reason for Visit * Reason Comments Consult * Consultation (Routine) - Closed Specialty Diagnoses / Procedures Referred By Contac t Referred To Contact Surgical Oncology Diagnoses Abnormal mammogram of left breast Christine Alex MD Phone: tel: fax: [facility] (All Locations) Referral ID Status Reason Start Date Expiration Date V isits Requested Visits Authorized [id number] Closed Specialty Services Required 08/03/2019 02/11/2021 99 [phone] Encounter Details Date Type Department Care Team (Late st Contact Info) Description 08/13/2019 1:40 PM DIRECTOR OF PHYSICIAN PRACTICES Office Visit [facility] Surgery [facility] 5th [place] [address] [place] [id number] Ro Langley, [place] [id number] [address] Abnormal mammogram of left breast Social History Tobacco Use Types Packs/Day Years Used Date Smoking Tobacco: Never Comments No Sex and Gender Information Value Date Recorded Sex Assigned at Not on file Legal Sex Female 12:41 PM DIRECTOR OF PHYSICIAN PRACTICES Gender Identity Not on file Sexual Orientation Not on file documented as of this encounter Last Filed Vital Signs Vital Sign Reading Time Taken Comments Blood Pressure - - Pulse - - Temperature - - Respiratory Rate - - Oxygen Saturation - - Inhaled Oxygen Concentration - - Weight 61.2 kg (135 lb) 08/13/2019 1:51 PM DIRECTOR OF PHYSICIAN PRACTICES Height 157.5 cm (5' 2 ) 08/13/2019 1:51 PM DIRECTOR OF PHYSICIAN PRACTICES Body Mass Index 24.69 08/13/2019 1:51 PM DIRECTOR OF PHYSICIAN PRACTICES documented in this encounter Progress Notes * Ro Langley, [employer] OPERATIONS - 08/13/2019 1:40 PM CST PATIENT NAME: [...] for routine screening mammograms on 05/09/2019 at [facility] where they noted multiple circumscribed masses [...] her back as needed. Ro Langley, MSN, TRAFFIC MONITOR SPECIALIST- Endocrine and Oncology Surgery I have reviewed the history, physical, clinical exam, social and surgical history and I concur withthe findings. Esther Lucero M.D. detasseling crew supervisor Oncology Surgery Cosigned by Esther Lucero MD PhD at 08/20/2019 5:52 PM DIRECTOR OF PHYSICIAN PRACTICES CTOR OF PHYSICIAN PRACTICES CTOR OF PHYSICIAN PRACTICES documented in this encounter Plan of Treatment [...] 020 documented in this encounter Care Teams Chief Merchandising Officer Relationship Specialty Start Date End Date Christine Alex MD PCP - General Obstetrics and Gynecology 08/13/19 documented as of this encounter
--- OUTSIDE RECORDS SUMMARY | 2024-06-24 19:54 | XMS_ITS | Referral Summary ---
Author Organization [facility] Address [address] [place] [phone] Care Team Providers Care Slot Attendant Name Role Phone Christine Alex MD Primary [...] on file Legal Sex Female 12:41 PM COMMUNITY LIAISON Gender Identity Not on file Sexual Orientation Not on file Last Filed Vital Signs Vital Sign Reading Time Taken Comments Blood Pressure - - Pulse - - Temperature - - Respiratory Rate - - Oxygen Saturation - - Inhaled Oxygen Concentration - - Weight 61.2 kg (135 lb) 08/13/2019 1:51 PM COMMUNITY LIAISON Height 157.5 cm (5' 2 ) 08/13/2019 1:51 PM COMMUNITY LIAISON Body Mass Index 24.69 08/13/2019 1:51 PM COMMUNITY LIAISON Plan of Treatment Not on file Insurance [employer] Care Teams Slot Attendant Relationship Specialty Start Date End Date Christine Alex MD PCP - General Obstetrics and Gynecology 08/13/19
--- OUTSIDE RECORDS SUMMARY | 2024-06-24 19:54 | XMS_ITS | Encounter Summary ---
Author Organization [facility] Care Team Providers Care Cracker And Cookie Machine Operator Name Role Phone Christine Alex MD Primary Care Provider + Encounter Details Date Type Department Care Team (Latest Contact Info) Description 08/13/2019 Travel Social History Tobacco Use Types Packs/Day Years Used Date Smoking Tobacco: Never Comments No Sex and Gender Information Value Date Recorded Sex Assigned at Not on file Legal Sex Female 12:41 PM CORN PICKER Gender Identity Not on file Sexual Orientation Not on file documented as of this encounter Plan of Treatment Not on file documented as of this encounter Visit Diagnoses Not on filedocumented in this encounter Care Teams Cracker And Cookie Machine Operator Relationship Specialty Start Date End Date Christine Alex MD PCP - General Obstetrics and Gynecology 08/13/19 documented as of this encounter
--- OUTSIDE RECORDS SUMMARY | 2024-06-24 19:54 | XMS_ITS | Encounter Summary ---
Author Organization [facility] Address [address] [facility] [address] [place] [address] Phone Care Team Providers Care Industrial Paramedic Name Role Phone Zain Aguirre MD Primary Care Provider [phone] Reason for Referral * Diagnostic Imaging (Routine) - Closed Specialty Diagnoses / Procedures Referred By Contac t Referred To Contact Diagnoses Abnormal mammogram of left breast Procedures US Breast Left Limited Esther Lucero MD PhD Phone: tel: fax: [address] [phone] Referral ID Status Reason Start Date Expiration Date Visits Re quested Visits Authorized [id number] Closed 07/08/2019 01/16/2021 1 1 DE SALES CONSULTANT Encounter Details Date Type Department Care Team (Late st Contact Info) Description 07/08/2019 Orders Only [facility] Surgery [address] [facility] 5th [place] [address] [place] [address] Esther Lucero MD PhD [address] [facility] [id number] [place] [address] Abnormal mammogram of left breast (Primary Dx) Social History Tobacco Use Types Packs/Day Years Used Date Smoking Tobacco: Never Assessed Comments Unknown Sex and Gender Information Value Date Recorded Sex Assigned at Not on file Legal Sex Female 12:41 PM INSIDE SALES CONSULTANT Gender Identity Not on file Sexual Orientation Not on file documented as of this encounter Plan of Treatment Not on file documented as of this encounter Results * US Breast Left Limited (08/13/2019 3:23 PM INSIDE SALES CONSULTANT) Anatomical Region Laterality Modality Breast Left Ultrasound 08/13/2019 3:32 PM INSIDE SALES CONSULTANT Impressions 08/13/2019 3:32 PM INSIDE SALES CONSULTANT The 2 previously reported suspicious areas represent fibroglandular tissue and ligamentous shadowing. ??2 additional cysts are demonstrated. OVERALL FINAL ASSESSMENT: BI-RADS Category 2: Benign. Annual screening mammography is recommended. Electronically signed by: Shahriar Palomares M.D. Narrative 08/13/2019 3:32 PM INSIDE SALES CONSULTANT EXAMINATION: LEFT BREAST ULTRASOUND HISTORY: 79-year-old woman [...] of the LEFT breast was a trained raisin washer and by Dr. Palomares. ??The right breast [...] of the LEFT breast was a trained raisin washer and by Dr. Palomares. The right breast [...] Breast Imaging Outside Consult (08/10/2019 5:34 PM INSIDE SALES CONSULTANT) Anatomical Region Laterality Modality Breast N/A Mammography 08/11/2019 9:03 AM INSIDE SALES CONSULTANT Impressions 08/11/2019 10:08 AM INSIDE SALES CONSULTANT 1. ??Left breast benign-appearing oval mass at [...] images may or may not represent the [place] source data set and thus may contain changes which may lower the sensitivity of the second opinion interpretation. Dictated by: Richard Vu M.D. The radiology attending physician has personally reviewed this study, and had reviewed and/or edited this written report and agrees with it. Electronically signed by: Rocio Sandy M.D. Narrative 08/11/2019 10:08 AM INSIDE SALES CONSULTANT EXAMINATION: REVIEW AND INTERPRETATION OF OUTSIDE IMAGING FACILITY PERFORMING OUTSIDE IMAGING: [facility] EXAM(S) REVIEWED: 1. ??BILATERAL DIAGNOSTIC MAMMOGRAM WITH [...] OF OUTSIDE IMAGING FACILITY PERFORMING OUTSIDE IMAGING: [facility] EXAM(S) REVIEWED: 1. BILATERAL DIAGNOSTIC MAMMOGRAM WITH [...] images may or may not represent the [place] source data set and thus may contain [...] breast documented in this encounter Care Teams Industrial Paramedic Relationship Specialty Start Date End Date Zain Aguirre MD [address] [place] [address] PCP - General Internal Medicine 07/08/19 08/12/19 documented as of this encounter
== END 2024-06-20 15:26 ==
LOC: ANHED 06-18 02:25 → ANH3MEDSUR 06-18 03:00 → ANH2MED 06-18 04:01
PROVIDERS: Nurse Practitioner; Physician Assistant Surgical; Admitting Provider Internal Medicine; Emergency Provider Physician Assistant; PCP Family Medicine; Visit Provider Nurse Practitioner Family
DX: S72.112A Displaced fracture of greater trochanter of left femur, initial encounter for closed fracture (principal); W18.39XA Other fall on same level, initial encounter; Z96.642 Presence of left artificial hip joint; R50.9 Fever, unspecified; D64.9 Anemia, unspecified; F31.9 Bipolar disorder, unspecified; Z20.822 Contact with and (suspected) exposure to COVID-19; Z79.01 Long term (current) use of anticoagulants; Z79.899 Other long term (current) drug therapy
CPT/HCPCS: 36415; 71045; 73502; 80053; 81003; 82306; 83605; 83735; 85025; 87040; 87635; 87637; 96374; 96375; 97110; 97116; 97161; 97165; 97530; 97535; 99285; A9270; G0378; J1171

== ENCOUNTER 2024-11-11 08:40 | Outpatient (CLI) | payer MEDICARE, SELFPAY ==
[2024-11-11 09:28] LABS: Basophils Absolute Auto 0.1 K/mm3 (0.0-0.1); Basophils Percent Auto 0.9 % (0.2-1.2); Eosinophils Absolute Auto 0.3 K/mm3 (0-0.3); Eosinophils Percent Auto 4.2 % (0-4.4); Hematocrit 41.4 % (37.0-47.0); Hemoglobin 13.3 g/dL (12.0-15.0); Immature Granulocyte Absolute 0.02 K/mm3 (0.00-0.031); Immature Granulocyte Percent A 0.3 % (0-0.5); Lymphocytes Absolute Auto 1.44 K/mm3 (0.9-3.2); Lymphocytes Percent Auto 22.5 % (18.3-44.2); Mean Corpuscular HGB Conc 32.1 g/dl (32-36); Mean Corpuscular Hemoglobin 31.1 pg (26-34); Mean Corpuscular Volume 96.7 fl (80-100); Mean Platelet Volume 10.4 fl (7.4-10.4); Monocytes Absolute Auto 0.5 K/mm3 (0.1-0.6); Monocytes Percent Auto 8.3 % (2.6-8.5); Neutrophils Absolute Auto 4.1 K/mm3 (1.3-6.7); Neutrophils Percent Auto 63.8 % (45.5-73.1); Platelet Count Result 249 k/mm3 (150-375); Red Blood Count 4.28 M/mm3 (4.2-5.4); Red Cell Distribution Width 13.2 % (11.5-14.5); White Blood Count 6.4 K/mm3 (4.5-10.0)
[2024-11-11 09:38] LABS: Alanine Aminotransferase 22 U/L (6-35); Albumin Level 4.4 g/dL (3.5-5.1); Alkaline Phosphatase 131 U/L (38-126); Anion Gap 6 mmol/L (4-12); Aspartate Amino Transferase 36 U/L (14-36); Bilirubin,Total 0.8 mg/dL (0.2-1.3); Blood Urea Nitrogen 21 mg/dL (7-17); Calcium 9.6 mg/dL (8.4-10.2); Carbon Dioxide 27 mmol/L (22-30); Chloride 104 mmol/L (98-107); Cholesterol 228 mg/dL (0-200); Estimated Glomerular Filt Rate > 60; Glucose 90 mg/dL (65-110); HDL Direct 97 mg/dL; Sodium 137 mmol/L (137-145); Triglycerides 50 mg/dL (<150)
[2024-11-11 09:49] LABS: LDL Cholesterol Direct 96 mg/dL
[2024-11-11 10:48] LABS: Vitamin D 25 Hydroxy 50.7 ng/mL
== END 2024-11-11 08:41 | disposition home or self-care (01) ==
LOC: ANHLAB 08:41
PROVIDERS: PCP Family Medicine; Visit Provider Family Medicine
DX: E78.5 Hyperlipidemia, unspecified (principal); E55.9 Vitamin D deficiency, unspecified; D64.9 Anemia, unspecified; Z79.899 Other long term (current) drug therapy
CPT/HCPCS: 36415; 80053; 80061; 82306; 82607; 85025

== ENCOUNTER 2024-11-27 09:22 | Outpatient (CLI) | payer MEDICARE, SELFPAY ==
--- NOTE | ~2024-11-27 | DEXA_ITS ---
Bone Density Report Name: PRATIMA KNUTSON Age: 84 Sex: Female Ethnicity: White Date of : 1940 Indication: postmenopausal; screening for osteoporosis; height loss; prior fracture; Referring Provider: ROSE DRIVER Study: Bone densitometry was performed. Exam Date: November 27, 2024 Accession number: [id number] Bone Density: Region BMD T-score Z-score Classification AP Spine(L1-L4) 0.843 -1.9 0.9 Osteopenia Femoral Neck (Right) 0.706 -1.3 1.1 Osteopenia Total Hip (Right) 0.799 -1.2 1.0 Osteopenia World Health Organization criteria for BMD impression classify patients as: Normal (T-score at or above -1.0), Osteopenia (T-score between -1.0 and -2.5), or Osteoporosis (T-score at or below -2.5). 10-year Fracture Risk(1): Major Osteoporotic Fracture 19% Hip Fracture 6.5% Reported Risk Factors: [place] (), Neck BMD=0.706, BMI=24.6, previous fracture, smoking (1) FRAX(R) Version 3.08. Fracture probability calculated for an untreated patient. Fracture probability may be lower if the patient has received treatment. Previous Exams: Region Exam Age BMD T-score BMD Change BMD Change Date g/cm2 vs Baseline vs Previous Total Hip(Right) 11/27/2024 84 0.799 -1.2 -0.053 (-6.3%) -0.039 (-4.6%) 07/17/2022 82 0.838 -0.9 -0.015 (-1.7%) -0.015 (-1.7%) 05/09/2019 79 0.852 -0.7 *Denotes significance at 95% confidence level, LSC for Total Hip = 0.027 g/cm2 Clinical Information Provided by Patient: Has had a low trauma fracture Smokes Has used the following medications: Vitamin D, Calcium Patient maximum height was 64 Menopause Age: 54 Drinks caffeinated beverages Onset of menses at age 15 Number of children 1 Impression: The patient has low bone mass, based on the Total Spine T-score. The patient has an estimated ten-year risk of hip fracture of 6.5% and an estimated ten-year risk of major fracture of 19%, based on the WHO FRAX algorithm. The patient has risk factors, including: smoking, previous fracture. The BMD for the Total Hip(Right) decreased, changing by -4.6% since the last DXA exam. Discussion: BONE DENSITY IS LOW AT ONE OR MORE SKELETAL SITES. THE PATIENT'S BMD AND CLINICAL RISK FACTORS CONTRIBUTE TO THIS PATIENT'S INCREASED RISK OF FRACTURE. This patient's lowest T-score is low at one or more skeletal sites. It meets the World Health Organization's (WHO) criteria for ?low bone mass? (T-score between -1.0 and -2.5). The patient's 10-year risk of hip fracture as calculated by FRAX exceeds the threshold where pharmacological therapy is recommended by the National Osteoporosis Foundation (NOF). However, all treatment decisions require clinical judgment and consideration of individual patient factors, including patient preferences, comorbidities, previous drug use, risk factors not captured in the FRAX model (e.g., frailty, falls, vitamin D deficiency, increased bone turnover, interval significant decline in bone density) and possible under or overestimation of fracture risk by FRAX. The patient should follow a healthful lifestyle (good nutrition with adequate calcium and vitamin D, and appropriate weight-bearing exercise). Follow-Up: Consider a repeat BMD and Vertebral Fracture Assessment (VFA) exam in 2 years or sooner if medically necessary, to reassess this patient's status. Reported by: HIMANSHU on 11/27/2024 9:56:00 AM. Reviewed, dictated and finalized at location A.
--- OUTSIDE RECORDS SUMMARY | 2024-11-27 09:25 | XMS_ITS | Referral Summary ---
Author Organization [facility] Address [address] [place] [phone] Care Team Providers Care Trading Manager Name Role Phone Christine Alex MD Primary [...] on file Legal Sex Female 12:41 PM ARTIFICIAL MARBLE WORKER Gender Identity Not on file Sexual Orientation Not on file Last Filed Vital Signs Vital Sign Reading Time Taken Comments Blood Pressure - - Pulse - - Temperature - - Respiratory Rate - - Oxygen Saturation - - Inhaled Oxygen Concentration - - Weight 61.2 kg (135 lb) 08/13/2019 1:51 PM ARTIFICIAL MARBLE WORKER Height 157.5 cm (5' 2) 08/13/2019 1:51 PM ARTIFICIAL MARBLE WORKER Body Mass Index 24.69 08/13/2019 1:51 PM ARTIFICIAL MARBLE WORKER Plan of Treatment Not on file Insurance [facility] MEDICARE ADVANTAGE Care Teams Trading Manager Relationship Specialty Start Date End Date Christine Alex MD PCP - General Obstetrics and Gynecology 08/13/19
--- OUTSIDE RECORDS SUMMARY | 2024-11-27 09:25 | XMS_ITS | Clinical Summary ---
Author Organization [facility] Address [address] [place] [phone] Care Team Providers Care Product Craftsman Name Role Phone Christine Alex MD Primary [...] on file Legal Sex Female 12:41 PM PHYSICIST LIGHT AND OPTICS Gender Identity Not on file Sexual Orientation Not on file Obstetrics History Last Filed Vital Signs Vital Sign Reading Time Taken Comments Blood Pressure - - Pulse - - Temperature - - Respiratory Rate - - Oxygen Saturation - - Inhaled Oxygen Concentration - - Weight 61.2 kg (135 lb) 08/13/2019 1:51 PM PHYSICIST LIGHT AND OPTICS Height 157.5 cm (5' 2) 08/13/2019 1:51 PM PHYSICIST LIGHT AND OPTICS Body Mass Index 24.69 08/13/2019 1:51 PM PHYSICIST LIGHT AND OPTICS Plan of Treatment Not on file Insurance [facility] MEDICARE ADVANTAGE Care Teams Product Craftsman Relationship Specialty Start Date End Date Christine Alex MD PCP - General Obstetrics and Gynecology 08/13/19
== END 2024-11-27 09:23 | disposition home or self-care (01) ==
LOC: ANHIMG 09:23
PROVIDERS: PCP Family Medicine; Visit Provider Orthopaedic Surgery
DX: M85.89 Other specified disorders of bone density and structure, multiple sites (principal); M81.0 Age-related osteoporosis without current pathological fracture
CPT/HCPCS: 77080

== ENCOUNTER 2025-01-26 13:30 | Outpatient (RCR) | payer MEDICARE, SELFPAY ==
--- NOTE | 2024-12-07 14:48 | OPREHPOC ---
Outpatient Therapy Plan of Care This is a Multidisciplinary Plan of Care that may contain components documented by all disciplines (PT, OT, and ST.) PT Problem 1 PT Problem #1 Knowledge Deficit PT Goal 1 Goal / Goal Update Patient to demonstrate independence with HEP for improved self-reliance of symptom management. Target Visit 6 PT Problem 2 PT Problem #2 Pain PT Goal 1 Goal / Goal Update Patient to decrease subjective reports of L hip pain to <2/10 when walking her dog for improved ADL tolerance. Target Visit 6 PT Problem 3 PT Problem #3 Impaired Strength PT Goal 1 Goal / Goal Update Patient to demonstrate L hip strength >=4/5 for improved functional stability required for ADLs. Target Visit 12 PT Problem 4 PT Problem #4 Impaired Gait PT Goal 1 Goal / Goal Update Patient to improve gait mechanics and stair negotiation to no noted deficit and reciprocal pattern for improved community navigation. Target Visit 12 PT Problem 5 PT Problem #5 Impaired Endurance PT Goal 1 Goal / Goal Update Patient to improve distance ambulated during 2MWT from 350 feet to 425 feet to demonstrate an improvement in ADL endurance. Target Visit 12
--- NOTE | 2024-12-07 14:48 | PTOPEVAL1 ---
Assessment and note entered by Gabrielle Noe, PT Evaluation Information Assessment Status Evaluation Diagnosis abnormalities of gait and mobility ICD-10 Condition Codes (PT) Pain in left hip M25.552,Abnormalities of gait and mobility R26.9 Onset chronic Subjective Information Pt had L KALEE on 06/16/24 and was sent home the next day. She fell the day she got home and fractured the greater trochanter of her L femur. She does not think she healed correctly and thinks she still walks funny. She reports difficulty with prolonged standing and walking. She can walk her dog 4x/day but it starts to hurt. She can do the stairs but after doing them repeatedly she starts to get tired. She is unable to sleep on her left side comfortably. Pt did not understand a fracture and broken bone were the same thing and exhibited difficulties with recalling her initial injury. Reported Pain Level Pain Score 0: Self Report Assessment PT Clinical Summary Pt is an 84 year old who presents to physical therapy with a primary complaint of difficulty walking since recovering from L KALEE on 06/16/24. Pt demonstrates Nic hip weakness, pain reproduced upon light palpation to the L greater trochanter, decreased mobility, gait deficit, and decreased endurance that limit their ability to perform ADLs . Pt will benefit from skilled physical therapy to address the above listed deficits and return to PLOF. HEP instructed and written handout provided, EX tolerated well with no adverse effects to note post-session. Pt was educated on importance of adherence to HEP. Pt was also educated on anatomy, prognosis, home modalities, and PT POC. Plan of Care Interventions Aquatic Therapy,Gait Training,Hot Pack/Cold Pack, Manual Therapy,Neuro Re-education,Therapeutic Activities,Therapeutic Exercise PT Services Indicated Yes Treatment Frequency and 2x/wk for 12 sessions Duration These treatments will address the objective and functional deficits as defined above. The patient will be advanced safely and appropriately in order for the patient to progress towards his/her prior level of function. Additional exercises will be introduced and as well as a comprehensive home exercise program upon discharge, if needed, ?to ensure carryover of functional gains achieved in the clinic. This treatment plan has been reviewed and agreement upon by the patient.
--- NOTE | 2025-01-26 14:18 | OPREHPOC ---
Outpatient Therapy Plan of Care This is a Multidisciplinary Plan of Care that may contain components documented by all disciplines (PT, OT, and ST.) PT Problem 1 PT Problem #1 Knowledge Deficit PT Goal 1 Goal / Goal Update Patient to demonstrate independence with HEP for improved self-reliance of symptom management. 01-26-25 d/c goal met Target Visit 6 Progress Met PT Problem 2 PT Problem #2 Pain PT Goal 1 Goal / Goal Update Patient to decrease subjective reports of L hip pain to <2/10 when walking her dog for improved ADL tolerance. 01-26-25 d/c goal not met- improved to 3/10 at worst Target Visit 6 Progress Not Met PT Problem 3 PT Problem #3 Impaired Strength PT Goal 1 Goal / Goal Update Patient to demonstrate L hip strength >=4/5 for improved functional stability required for ADLs. 01-26-25 d/c goal met Target Visit 12 Progress Met PT Problem 4 PT Problem #4 Impaired Gait PT Goal 1 Goal / Goal Update Patient to improve gait mechanics and stair negotiation to no noted deficit and reciprocal pattern for improved community navigation. 01-26-25 d/c goal met Target Visit 12 Progress Met PT Problem 5 PT Problem #5 Impaired Endurance PT Goal 1 Goal / Goal Update Patient to improve distance ambulated during 2MWT from 350 feet to 425 feet to demonstrate an improvement in ADL endurance. 01-26-25 d/c goal met, 470' Target Visit 12 Progress Met
--- NOTE | 2025-01-26 14:18 | PTOPDC ---
Assessment and note entered by Karis Sandy, PT Assessment Status Discharge Diagnosis abnormalities of gait and mobility ICD-10 Condition Codes (PT) Pain in left hip M25.552,Abnormalities of gait and mobility R26.9 Onset chronic Subjective Information doing better with walking and balance; have been working on the exercises at home; walks her dog outside about 20 minutes; use the cane only when walking her dog and it is raining; is doing everything she usually does at home, but hip still sore; Reported Pain Level Pain Score Self Report Additional Pain Score Comments pain range in the past week 0-3/10; lateral L hip- -achey increase pain: walking dog 20 minutes; Assessment PT Clinical Summary Rubi has received 12 PT sessions. With today's assessment: reports pain at 0-3/10 in lateral hip L; self assessment LE functional scale of 39% limitation in activity level; reports walking her dog, 2-3x/day for 20 minutes and returning to her usual activities; 2 minute walking test distance of 470',without device and good gait pattern; on 8 steps with one hand railing and alternate step pattern; increase strength of both hips; education completed for HEP. The goals were met. Discharge PT. She is to continue with HEP. Plan of Care PT Services Indicated No
== END 2025-01-26 14:42 | disposition home or self-care (01) ==
LOC: ANHPT 13:30
PROVIDERS: PCP Family Medicine; Visit Provider Family Medicine
DX: R26.9 Unspecified abnormalities of gait and mobility (principal); M25.552 Pain in left hip
CPT/HCPCS: 97110; 97140; 97161; 97530

== ENCOUNTER 2025-03-16 08:36 | Outpatient (CLI) | payer MEDICARE, SELFPAY ==
--- NOTE | ~2025-03-16 | XR_ITS ---
XR lumbar spine 2-3V Indication: FALL x2 WKS AGO; POSTERIOR LT SIDE LBP Comparison: None Findings: Mild dextroconvex scoliosis. Moderate loss of vertebral height throughout. No acute fracture. Moderate to severe loss of disc height throughout. Soft tissues unremarkable Impression: No acute abnormality. Reviewed, dictated and finalized at location P. Impression: No acute abnormality.
--- NOTE | ~2025-03-16 | XR_ITS ---
EXAMINATION: XR hip LT 2V w AP pelvis, 03/16/2025 8:52 CDT HISTORY: FALL x2 WKS AGO; POSTERIOR LT HIP PAIN; REPLACED xDEC 2023 COMPARISON: No comparisons available. Findings: No acute fracture or malalignment. Left arthroplasty intact. Severe right-sided degenerative changes. Soft tissues unremarkable. Impression: No acute fracture or malalignment. Reviewed, dictated and finalized at location P. Impression: No acute fracture or malalignment.
--- OUTSIDE RECORDS SUMMARY | 2025-03-16 08:49 | XMS_ITS | Clinical Summary ---
Author Organization [facility] Address [address] [place] [id number] Care Team Providers Care Medical Office Secretary Name Role Phone Christine Alex MD Primary [...] on file Legal Sex Female 12:41 PM VIDEO RENTAL CLERK Gender Identity Not on file Sexual Orientation Not on file Obstetrics History Last Filed Vital Signs Vital Sign Reading Time Taken Comments Blood Pressure - - Pulse - - Temperature - - Respiratory Rate - - Oxygen Saturation - - Inhaled Oxygen Concentration - - Weight 61.2 kg (135 lb) 08/13/2019 1:51 PM VIDEO RENTAL CLERK Height 157.5 cm (5' 2) 08/13/2019 1:51 PM VIDEO RENTAL CLERK Body Mass Index 24.69 08/13/2019 1:51 PM VIDEO RENTAL CLERK Plan of Treatment Not on file Insurance [facility] MEDICARE ADVANTAGE Care Teams Medical Office Secretary Relationship Specialty Start Date End Date Christine Alex MD PCP - General Obstetrics and Gynecology 08/13/19
--- OUTSIDE RECORDS SUMMARY | 2025-03-16 08:49 | XMS_ITS | Patient Health Record ---
Author Organization [facility] Address [address] [place] [address] Support Name Relationship Address Phone PARAS KNUTSON Emergency Contact Unknown PRATIMA KNUTSON Guarantor Unknown [phone] Reason For Referral No Information Medications Medication SIG (Take, Route, Frequency, Duration) Notes Start Date End Date Status Clobetasol Propionate 0.05 % Solution External 11/27/2022 Active Ketoconazole 2% Shampoo External 11/27/2022 Active Loratadine 10 MG Tablet Oral 11/27/2022 Active Triamcinolone Acetonide 0.025 % Lotion External 11/27/2022 Active Fluticasone Propionate Diskus 50 MCG/ACT Aerosol Powder Breath Activated Inhalation *Reorder from [employer] for eRx and Interaction Alerts* 11/27/2022 Active buPROPion HCl ER (XL) 150 MG Tablet Extended Release 24 Hour Oral 11/27/2022 Active Immunizations Vaccine Route Administration Date Status Comme nts Influenza virus vaccine, quadrivalent (IIV4), split virus, 0.25 mL dosage Unknown 03/20/2021 Administered Influenza, high dose seasonal Unknown 03/24/2019 Admini stered Influenza, high-dose seasona l, quadrivalent, preservative free >65 yrs Unknown 02/16/2020 Administered Moderna Covid-19 Vaccine 1st dose Unknown 08/15/2020 Ad ministered Moderna Covid-19 Vaccine 1st dose Unknown 09/12/2020 Ad ministered Moderna Covid-19 Vaccine 1st dose Unknown 05/04/2021 Ad ministered Moderna Covid-19 Vaccine 1st dose Unknown 10/09/2021 Ad ministered Moderna Covid-19 Vaccine 1st dose Unknown 02/24/2022 Ad ministered Zoster Unknown 02/16/2020 Administered Zoster Unknown 04/25/2020 Administered Social History Social History Additional Details Category Social Info Options Details Migrated Social History Migrated Social History Alcohol Intake: Occasional 08/12/2019,Tobacco Years: Never smoker 08/12/2019 Plan Of Treatment No Information Insurance Providers Payer Name Payer Address Payer Phone Subscriber Number Group Number Insured Name Patient Relationship to Insured Coverage Start Date Coverage End Date [employer] Medicare Replacement/ Advantage - Ppo [address] [address] [place] [address] [id number] AIR TUBE RELEASER, PRATIMA Self - patient is the insured Medical (General) History Surgical History Surgery Date(Month/Year) Xcapsl ctrc rmvl cplx wo ecp ([id number]) Appendectomy ([id number])
== END 2025-03-16 08:37 | disposition home or self-care (01) ==
PROVIDERS: PCP Family Medicine; Visit Provider Nurse Practitioner Family
DX: M54.50 Low back pain, unspecified (principal); M25.552 Pain in left hip; W19.XXXA Unspecified fall, initial encounter; Z96.642 Presence of left artificial hip joint
CPT/HCPCS: 72100; 73502

== ENCOUNTER 2025-06-03 10:24 | Outpatient (CLI) | payer MEDICARE, SELFPAY ==
--- OUTSIDE RECORDS SUMMARY | 2025-06-03 11:01 | XMS_ITS | Patient Health Record ---
Author Organization [facility] [employer] Address [address] [place] [address] Support Name Relationship Address Phone PARAS KNUTSON Emergency Contact Unknown PRATIMA KNUTSON Guarantor Unknown [phone] Reason For Referral No Information Medications Medication SIG (Take, Route, Frequency, Duration) Notes Start Date End Date Status Clobetasol Propionate 0.05 % Solution External 11/27/2022 Active Ketoconazole 2% Shampoo External 11/27/2022 Active Loratadine 10 MG Tablet Oral 11/27/2022 Active Triamcinolone Acetonide 0.025 % Lotion External 11/27/2022 Active Fluticasone Propionate Diskus 50 MCG/ACT Aerosol Powder Breath Activated Inhalation *Reorder from [employer] for eRx and Interaction Alerts* 11/27/2022 Active [...] Medicare Replacement/ Advantage - Ppo [address] [address] [place] [address] [id number] COLLECTIONS AND ARCHIVES DIRECTOR, PRATIMA Self - patient is the insured Medical (General) History Surgical History Surgery Date(Month/Year) Xcapsl ctrc rmvl cplx wo ecp ([id number]) Appendectomy ([id number])
--- OUTSIDE RECORDS SUMMARY | 2025-06-03 11:01 | XMS_ITS | Clinical Summary ---
Author Organization [facility] Address [address] [place] [id number] Care Team Providers Care Residential Fee Appraiser Name Role Phone Christine Alex MD Primary [...] on file Legal Sex Female 12:41 PM PORCELAIN BUILDUP ASSISTANT Gender Identity Not on file Sexual Orientation Not on file Last Filed Vital Signs Vital Sign Reading Time Taken Comments Blood Pressure - - Pulse - - Temperature - - Respiratory Rate - - Oxygen Saturation - - Inhaled Oxygen Concentration - - Weight 61.2 kg (135 lb) 08/13/2019 1:51 PM PORCELAIN BUILDUP ASSISTANT Height 157.5 cm (5' 2) 08/13/2019 1:51 PM PORCELAIN BUILDUP ASSISTANT Body Mass Index 24.69 08/13/2019 1:51 PM PORCELAIN BUILDUP ASSISTANT Plan of Treatment Not on file Insurance [facility] MEDICARE ADVANTAGE Care Teams Residential Fee Appraiser Relationship Specialty Start Date End Date Christine Alex MD PCP - General Obstetrics and Gynecology 08/13/19
== END 2025-06-03 10:25 | disposition home or self-care (01) ==
LOC: ANHAUDIO 10:24
PROVIDERS: PCP Family Medicine; Visit Provider Family Medicine
DX: H90.42 Sensorineural hearing loss, unilateral, left ear, with unrestricted hearing on the contralateral side (principal); H74.8X3 Other specified disorders of middle ear and mastoid, bilateral; H61.21 Impacted cerumen, right ear; H73.893 Other specified disorders of tympanic membrane, bilateral
CPT/HCPCS: 92557; 92567